=== PATIENT | male | born 1950 | race Caucasian/White ===

== ENCOUNTER 2016-03-23 01:14 | Observation (INO) | payer MEDICARE ==
[2016-03-23] MEDS ORDERED: SODIUM CHLORIDE 0.9% 1,000 ML IV STA (01:58)
--- NOTE | 2016-03-23 02:07 | ED ---
Syncope HPI - General Chief Complaint: Syncope Stated Complaint: Syncopal Episode - Hit Head LOC Time Seen by Provider: 03/23/16 01:42 Source: patient, family, RN notes reviewed Mode of arrival: wheelchair Limitations: no limitations - History of Present Illness Initial Comments: This patient is a 65-year-old man brought in after he had passed out at home. The history is from both the patient and his . The patient had been in bed , then got up, went into the bathroom to urinate. The patient's states she was in another room of the house and heard a crash. She went and found the patient on the floor of the bathroom in a semi-seated position against a cabinet. She states that the patient was unresponsive and she phoned 911, but misdialed. When she was re-dialing, the patient regained consciousness and told her that he was alright, and that he was just sleeping. There had been no observed tonic-clonic activity or loss of continence. The patient is denying any injury in the fall. The patient states that preceding this episode he had not really had any prodromal symptoms. The patient states he has been feeling a little fatigued and under the weather for a day or 2 prior, but denied any specific symptoms. MD Complaint: collapsed -: minutes(s) Prodromal Symptoms: none -: second(s) Injuries Sustained Associated with Event: None Current Symptoms: none Context: getting out of bed - Related Data Home Medications Medication Instructions Recorded Confirmed Fluticasone/Salmeterol [Advair 1 dose PO Q12HR 03/23/16 03/23/16 100-50 Diskus] Hydrocodone/Acetaminophen 2 tab PO Q6HR PRN 03/23/16 03/23/16 [Hydrocodone/Acetaminophen 5-300] Lisinopril [Lisinopril] 20 mg PO DAILY 03/23/16 03/23/16 Losartan [Cozaar] 50 mg PO DAILY 03/23/16 03/23/16 Simvastatin [Zocor] 40 mg PO ONCE 03/23/16 03/23/16 Topiramate [Topamax] 100 mg PO TID 03/23/16 03/23/16 Topiramate [Topiramate] 100 mg PO TID 03/23/16 03/23/16 Allergies Allergy/AdvReac Type Severity Reaction Status Date / Time bee pollen Allergy Anaphylaxis Verified 03/23/16 01:23 shrimp Allergy Anaphylaxis Verified 03/23/16 01:23 Review of Systems ROS Statement: Those systems with pertinent positive or pertinent negative responses have been documented in the HPI. ROS Other: All systems not noted in ROS Statement are negative. Constitutional: Denies: fever, chills, weakness Eyes: Denies: eye pain, vision change Respiratory: Denies: cough, dyspnea, hemoptysis Cardiovascular: Reports: syncope. Denies: chest pain, palpitations, edema Endocrine: Reports: fatigue Gastrointestinal: Denies: abdominal pain, vomiting, diarrhea, melena, hematochezia Genitourinary: Denies: dysuria, hematuria Musculoskeletal: Reports: back pain (Chronic). Denies: joint swelling Skin: Denies: rash Neurological: Denies: headache, weakness, numbness Past Medical History Past Medical History: Heart Failure, COPD, Hyperlipidemia, Hypertension History of Any Multi-Drug Resistant Organisms: None Reported Past Surgical History: Adenoidectomy, Heart Catheterization With Stent, Tonsillectomy Additional Past Surgical History / Comment(s): double bypass Past Psychological History: Depression Smoking Status: Former smoker Past Alcohol Use History: Occasional Past Drug Use History: None Reported General Exam Limitations: no limitations General appearance: alert, in no apparent distress Head exam: Present: atraumatic, normocephalic Eye exam: Present: normal appearance, PERRL, EOMI. Absent: scleral icterus, conjunctival injection, nystagmus ENT exam: Present: normal oropharynx Neck exam: Present: normal inspection, full ROM Respiratory exam: Present: normal lung sounds bilaterally. Absent: respiratory distress, wheezes, rales, rhonchi, stridor Cardiovascular Exam: Present: regular rate, normal rhythm, systolic murmur ( There is a grade 3/6 systolic ejection murmur, harsh, consistent with aortic stenosis.). Absent: diastolic murmur, rubs, gallop GI/Abdominal exam: Present: soft. Absent: distended, tenderness, guarding, rebound, mass Extremities exam: Present: normal inspection, normal capillary refill. Absent: pedal edema, calf tenderness Back exam: Present: normal inspection. Absent: CVA tenderness (R), CVA tenderness (L) Neurological exam: Present: alert, oriented X3, CN II-XII intact. Absent: motor sensory deficit Skin exam: Present: warm, dry, intact, normal color. Absent: rash Course Vital Signs 03/23/16 03/23/16 03/23/16 01:16 05:19 07:09 Temperature 100.6 F H Pulse Rate 89 64 78 Respiratory 20 20 16 Rate Blood Pressure 101/59 124/62 98/53 O2 Sat by Pulse 95 Oximetry EKG Findings - EKG Results: EKG: interpreted by SALLY, MARYL, sinus rhythm (Rate 87 bpm), normal axis, normal QRS, normal ST/T, no acute changes Medical Decision Making - Lab Data Result diagrams: 03/23/16 01:43 03/23/16 01:43 Lab Results 03/23/16 03/23/16 03/23/16 Range/Units 01:43 01:43 01:43 WBC 11.6 H (3.8-10.6) k/uL RBC 4.84 (4.30-5.90) m/uL Hgb 16.1 (13.0-17.5) gm/dL Hct 47.5 (39.0-53.0) % MCV 98.2 (80.0-100.0) fL MCH 33.3 (25.0-35.0) pg MCHC 33.9 (31.0-37.0) g/dL RDW 12.9 (11.5-15.5) % Plt Count 171 (150-450) k/uL Neutrophils % 89 % Lymphocytes % 3 % Monocytes % 5 % Eosinophils % 3 % Basophils % 0 % Neutrophils # 10.3 H (1.3-7.7) k/uL Lymphocytes # 0.4 L (1.0-4.8) k/uL Monocytes # 0.5 (0-1.0) k/uL Eosinophils # 0.3 (0-0.7) k/uL Basophils # 0.0 (0-0.2) k/uL PT (9.0-12.0) sec INR (<1.1) APTT (22.0-30.0) sec Sodium 142 (137-145) mmol/L Potassium 4.1 (3.5-5.1) mmol/L Chloride 111 H (98-107) mmol/L Carbon Dioxide 20 L (22-30) mmol/L Anion Gap 11 mmol/L BUN 22 H (9-20) mg/dL Creatinine 0.90 (0.66-1.25) mg/dL Est GFR (MDRD) Af Amer >60 (>60 ml/min/1.73 sqM) Est GFR (MDRD) Non-Af >60 (>60 ml/min/1.73 sqM) Glucose 114 H (74-99) mg/dL Calcium 9.0 (8.4-10.2) mg/dL Total Bilirubin 0.6 (0.2-1.3) mg/dL AST 23 (17-59) U/L ALT 32 (21-72) U/L Alkaline Phosphatase 86 (38-126) U/L Total Creatine Kinase 45 L (55-170) U/L CK-MB (CK-2) 0.7 (0.0-2.4) ng/mL CK-MB (CK-2) Rel Index 1.6 Troponin I <0.012 (0.000-0.034) ng/mL Total Protein 6.6 (6.3-8.2) g/dL Albumin 3.5 (3.5-5.0) g/dL Urine Color Urine Appearance (Clear) Urine pH (5.0-8.0) Ur Specific [place] (1.001-1.035) Urine Protein (Negative) Urine Glucose (UA) (Negative) Urine Ketones (Negative) Urine Blood (Negative) Urine Nitrate (Negative) Urine Bilirubin (Negative) Urine Urobilinogen (<2.0) mg/dL Ur Leukocyte Esterase (Negative) Urine RBC (0-5) /hpf Amorphous Sediment (None) /hpf Influenza Type A RNA (Not Detectd) Influenza Type B (PCR) (Not Detectd) 03/23/16 03/23/16 03/23/16 Range/Units 01:43 01:43 02:22 WBC (3.8-10.6) k/uL RBC (4.30-5.90) m/uL Hgb (13.0-17.5) gm/dL Hct (39.0-53.0) % MCV (80.0-100.0) fL MCH (25.0-35.0) pg MCHC (31.0-37.0) g/dL RDW (11.5-15.5) % Plt Count (150-450) k/uL Neutrophils % % Lymphocytes % % Monocytes % % Eosinophils % % Basophils % % Neutrophils # (1.3-7.7) k/uL Lymphocytes # (1.0-4.8) k/uL Monocytes # (0-1.0) k/uL Eosinophils # (0-0.7) k/uL Basophils # (0-0.2) k/uL PT 10.9 (9.0-12.0) sec INR 1.1 (<1.1) APTT 24.4 (22.0-30.0) sec Sodium (137-145) mmol/L Potassium (3.5-5.1) mmol/L Chloride (98-107) mmol/L Carbon Dioxide (22-30) mmol/L Anion Gap mmol/L BUN (9-20) mg/dL Creatinine (0.66-1.25) mg/dL Est GFR (MDRD) Af Amer (>60 ml/min/1.73 sqM) Est GFR (MDRD) Non-Af (>60 ml/min/1.73 sqM) Glucose (74-99) mg/dL Calcium (8.4-10.2) mg/dL Total Bilirubin (0.2-1.3) mg/dL AST (17-59) U/L ALT (21-72) U/L Alkaline Phosphatase (38-126) U/L Total Creatine Kinase (55-170) U/L CK-MB (CK-2) (0.0-2.4) ng/mL CK-MB (CK-2) Rel Index Troponin I (0.000-0.034) ng/mL Total Protein (6.3-8.2) g/dL Albumin (3.5-5.0) g/dL Urine Color Yellow Urine Appearance Cloudy (Clear) Urine pH 7.0 (5.0-8.0) Ur Specific [place] 1.020 (1.001-1.035) Urine Protein Trace H (Negative) Urine Glucose (UA) Negative (Negative) Urine Ketones Negative (Negative) Urine Blood Negative (Negative) Urine Nitrate Negative (Negative) Urine Bilirubin Negative (Negative) Urine Urobilinogen <2.0 (<2.0) mg/dL Ur Leukocyte Esterase Negative (Negative) Urine RBC 3 (0-5) /hpf Amorphous Sediment Rare H (None) /hpf Influenza Type A RNA Not Detected (Not Detectd) Influenza Type B (PCR) Not Detected (Not Detectd) Disposition Clinical Impression: Syncope and collapse Disposition: ADMITTED IP TO THIS HOSP Condition: Fair
[2016-03-23 02:12] LABS: Basophils % (A) 0 %; CH 31.3; CHCM 32.1; Eosinophils # (A) 0.3 k/uL (0-0.7); Eosinophils % (A) 3 %; HCT 47.5 % (39.0-53.0); HDW 2.31; HGB 16.1 gm/dL (13.0-17.5); Luc # (Auto) 0.07; Luc % (Auto) 1; Lymphocytes # (A) 0.4 k/uL (1.0-4.8); Lymphocytes % (A) 3 %; MCH 33.3 pg (25.0-35.0); MCHC 33.9 g/dL (31.0-37.0); MCV 98.2 fL (80.0-100.0); Mean Platelet Volume 7.2; Monocytes # (A) 0.5 k/uL (0-1.0); Monocytes % (A) 5 %; Neutrophils # (A) 10.3 k/uL (1.3-7.7); Neutrophils % (A) 89 %; RBC 4.84 m/uL (4.30-5.90); RDW 12.9 % (11.5-15.5); WBC 11.6 k/uL (3.8-10.6); WBC (Perox) 11.52
[2016-03-23 02:24] LABS: ALT 32 U/L (21-72); AST 23 U/L (17-59); Alkaline Phosphatase 86 U/L (38-126); Anion Gap 11 mmol/L; Blood Urea Nitrogen 22 mg/dL (9-20); Carbon Dioxide 20 mmol/L (22-30); Chloride 111 mmol/L (98-107); Glucose 114 mg/dL (74-99); INR 1.1 (<1.1); Non-African American GFR(MDRD) >60 (>60 ml/min/1.73 sqM); Partial Thromboplastin Time 24.4 sec (22.0-30.0); Potassium 4.1 mmol/L (3.5-5.1); Prothrombin Time 10.9 sec (9.0-12.0); Sodium 142 mmol/L (137-145); Total Bilirubin 0.6 mg/dL (0.2-1.3); Total Protein 6.6 g/dL (6.3-8.2)
[2016-03-23 02:34] LABS: Amorphous Sediment,Urine Rare /hpf; Appearance,Urine Cloudy (Clear); Bilirubin,Urine Negative (Negative); Glucose,Urine (UA) Negative (Negative); Ketones,Urine Negative (Negative); Leukocyte Esterase,Urine Negative (Negative); Nitrite,Urine Negative (Negative); Particle Count 11455; Protein,Urine Trace (Negative); RBC,Urine 3 /hpf (0-5); UA Billing (MACRO vs. MICRO) MICRO; Urobilinogen,Urine <2.0 mg/dL (<2.0)
[2016-03-23 02:38] LABS: Creatine Kinase 45 U/L (55-170)
--- NOTE | 2016-03-23 02:40 | XR ---
EXAMINATION TYPE: XR chest 1V portable DATE OF EXAM: 03/23/2016 2:22 AM COMPARISON: 05/29/2014 HISTORY: Syncope TECHNIQUE: Single frontal view of the chest is obtained. FINDINGS: There is no focal air space opacity, pleural effusion, or pneumothorax seen. Mild chronic interstitial lung changes are suggested. Sternotomy changes are present. There is mild cardiomegaly. Postsurgical changes of right shoulder arthroplasty are noted. Atherosclerotic calcification is noted in the aortic arch. IMPRESSION: 1. No focal pneumonia. 2. Chronic lung changes. 3. Sternotomy and mild cardiomegaly. 4. No significant change.
[2016-03-23 02:51] LABS: Creatine Kinase MB 0.7 ng/mL (0.0-2.4); Troponin I <0.012 ng/mL (0.000-0.034)
[2016-03-23] MEDS ORDERED: HYDROcodone/APAP 5-325MG 1 EACH TAB PO STA (03:34)
[2016-03-23] MEDS ORDERED: SODIUM CHLORIDE 0.9% 1,000 ML IV ONE (04:07)
[2016-03-23] MEDS ORDERED: HYDROcodone/APAP 10-325MG 1 EACH TAB PO ONE (04:55)
[2016-03-23 08:09] LABS: Creatine Kinase 36 U/L (55-170)
[2016-03-23 08:21] LABS: Creatine Kinase MB 0.5 ng/mL (0.0-2.4); Troponin I <0.012 ng/mL (0.000-0.034)
--- NOTE | 2016-03-23 09:49 | P.HPIM ---
History of Present Illness H&P Date: 03/23/16 Chief Complaint: Syncope This is a 65-year-old male, patient of Dr. Palacio. He has a known past medical history of coronary artery disease with previous cardiac stents and coronary artery bypass graft 2, hypertension, hyperlipidemia and congestive heart failure. Patient came into the emergency room after a syncopal episode. Patient was sleeping in bed got up around midnight to use the restroom. Patient 's heard a crash. He she observed him is sitting on a stool leaning his head back against the counter. Patient was unresponsive. She dialed EMS twice. Patient then regained consciousness and told her that he did not need to go into the hospital. However, patient's called her brothers who are both physicians and they recommended that he goes to the emergency room. On presentation EKG is showing a normal sinus rhythm. Chest x-ray showing no pneumonia with chronic lung disease. His temperature was 100.6. White count 11.6 troponins are negative 2. Patient does have a murmur which appears to be new cardiology has been consulted. He's also been hypotensive. Systolic blood pressures run 98. His blood pressure medications have been placed on hold. Patient does report having an uneasy feeling all day yesterday. He denies any dizziness or lightheadedness. Denies any chest pain or shortness of breath. Denies any nausea or vomiting. Denies any bowel movement changes or urinary symptoms. He doesn't get to having a cough which at times is chronic. However over the last couple a days his cough has been slightly more productive with a clearish sputum. He denies any fevers chills or sweats. Also note that influenza was negative and urinalysis was negative. Patient was seen evaluated in the emergency room. Per patient did not have any seizure-like activity with any twitching or jerking movements. Patient's last carotid Doppler was this past fall and they were told that it was unremarkable for any blockage. Patient does follow up with Dr. GRABIEL Romano for his .net developer. Review of Systems Please refer to HPI otherwise unremarkable Past Medical History Past Medical History: Heart Failure, COPD, Hyperlipidemia, Hypertension Additional Past Medical History / Comment(s): Narcolepsy, obstructive sleep apnea uses CPAP History of Any Multi-Drug Resistant Organisms: None Reported Past Surgical History: Adenoidectomy, Heart Catheterization With Stent, Tonsillectomy Additional Past Surgical History / Comment(s): double bypass 7 years ago Past Psychological History: Depression Smoking Status: Former smoker Past Alcohol Use History: Occasional Past Drug Use History: None Reported Medications and Allergies Home Medications Medication Instructions Recorded Confirmed Type Aspirin EC [Ecotrin Low Dose] 81 mg PO DAILY 03/23/16 03/23/16 History Atenolol [Tenormin] 25 mg PO DAILY 03/23/16 03/23/16 History Escitalopram [Lexapro] 10 mg PO DAILY 03/23/16 03/23/16 History Fluticasone/Salmeterol [Advair 1 puff INHALATION RT-BID PRN 03/23/16 03/23/16 History 100-50 Diskus] Hydrocodone/Acetaminophen 2 tab PO Q6HR PRN 03/23/16 03/23/16 History [Hydrocodone/Acetaminophen 5-300] Loratadine [Claritin] 10 mg PO DAILY 03/23/16 03/23/16 History Losartan [Cozaar] 50 mg PO DAILY 03/23/16 03/23/16 History Modafinil [Provigil] 100 mg PO TID 03/23/16 03/23/16 History Montelukast [Singulair] 10 mg PO DAILY 03/23/16 03/23/16 History Simvastatin [Zocor] 40 mg PO HS 03/23/16 03/23/16 History Topiramate [Topamax] 100 mg PO BID@0800,1200 03/23/16 03/23/16 History Topiramate [Topiramate] 200 mg PO HS 03/23/16 03/23/16 History Allergies Allergy/AdvReac Type Severity Reaction Status Date / Time bee pollen Allergy Anaphylaxis Verified 03/23/16 07:26 shrimp Allergy Anaphylaxis Verified 03/23/16 07:26 Physical Exam Vitals: Vital Signs Temp Pulse Pulse Pulse Pulse Resp BP 03/23/16 09:33 76 79 75 03/23/16 08:52 99.0 F 73 18 101/57 03/23/16 07:09 78 16 98/53 03/23/16 05:19 64 20 124/62 BP BP BP Pulse Ox 03/23/16 09:33 117/59 114/58 116/56 03/23/16 08:52 96 03/23/16 07:09 03/23/16 05:19 95 Head normocephalic Neck supple Lungs coarse breath sounds at the improve with cough Heart regular rate and rhythm S1-S2, no rub or gallop. Positive murmur Abdomen is soft nontender nondistended positive bowel sounds no hepatosplenomegaly Extremities no edema. Some bruising noted above the right elbow. Full range of motion. No swelling. Neuro alert and orientated to 3 Back: Patient does have some tenderness in the right lower back. No lacerations or bruising. No rash. Results CBC & Chem 7: 03/23/16 01:43 03/23/16 01:43 Labs: Abnormal Lab Results - Last 24 Hours (Table) 03/23/16 Range/Units 07:17 Total Creatine Kinase 36 L (55-170) U/L Assessment and Plan Plan: 1. Syncopal episode: Workup in progress. Patient was found to have a possible new murmur on exam. Echocardiogram ordered. Cardiology consulted. Continue with telemetry. Last carotid Doppler was this past fall and per patient and was unremarkable. Check for orthostatic hypotension. Urinalysis negative. Influenza screen negative. Troponins negative 2 2. Acute tracheobronchitis: Cough with productive sputum 3 days. Low-grade temp of 100.6 and white count of 11.6 on admission. Chest x-ray shows no evidence of pneumonia. Start Rocephin 1 g IV daily 3. History of coronary artery disease with previous cardiac stents and double bypass about 7 years ago. 4. History of COPD currently stable no evidence of exacerbation 5. History of obstructive sleep apnea uses CPAP at home 6. History of essential hypertension. Blood pressure has been in the lower side. We'll hold patient's atenolol and Cozaar GI prophylaxis Pepcid and DVT prophylaxis subcu heparin Time with Patient: Greater than 30 (Greater than 50% of the total time spent in counseling and coordination of care.I performed an examination of the patient and discussed their management with the physician Therapeutic Riding Instructor. I have reviewed the Physician Therapeutic Riding Instructor's notes and agree with the documented findings and plan of care)
--- NOTE | 2016-03-23 10:22 | ECHOF ---
Referral Reason:Evaluate murmur MEASUREMENTS -------- HEIGHT: 182.9 cm WEIGHT: 127.0 kg BP: 124/62 IVSd: 1.0 cm (0.6 - 1.1) LVIDd: 4.7 cm (3.9 - 5.3) LVPWd: 1.3 cm (0.6 - 1.1) IVSs: 1.4 cm LVIDs: 2.4 cm LVPWs: 1.5 cm Ao Diam: 4.0 cm (2.0 - 3.7) AV Cusp: 1.9 cm (1.5 - 2.6) LA Diam: 3.9 cm (2.7 - 3.8) MV E Stevenson: 1.07 m/s MV DecT: 345 ms MV A Stevenson: 1.38 m/s MV E/A Ratio: 0.78 RAP: 5.00 mmHg RVSP: 9.94 mmHg FINDINGS -------- Sinus rhythm. This was a technically difficult study with suboptimal views. There is mild concentric left ventricular hypertrophy. Overall left ventricular systolic function is normal with, an EF between 55 - 60 %. The right ventricle is normal in size and function. The left atrium is normal in size. The right atrium is normal in size. 1.5mg of Definity was utilized for enhancement of images The aortic valve was not well visualized. The mitral valve leaflets are mildly thickened. There is trace mitral regurgitation. Trace tricuspid regurgitation present. The right ventricular systolic pressure, as measured by Doppler, is 9.94mmHg. Pulmonic valve appears structurally normal. The pericardium is normal. CONCLUSIONS -------- 1. Sinus rhythm. 2. The mitral valve leaflets are mildly thickened. 3. There is trace mitral regurgitation. 4. Trace tricuspid regurgitation present. 5. The right ventricular systolic pressure, as measured by Doppler, is 9.94mmHg. 6. Pulmonic valve appears structurally normal. 7. The pericardium is normal. 8. This was a technically difficult study with suboptimal views. 9. There is mild concentric left ventricular hypertrophy. 10. Overall left ventricular systolic function is normal with, an EF between 55 - 60 %. 11. The right ventricle is normal in size and function. 12. The left atrium is normal in size. 13. The right atrium is normal in size. 14. 1.5mg of Definity was utilized for enhancement of images 15. The aortic valve was not well visualized. CATERPILLAR TRACTOR OPERATOR: Florencia Kline RDCS
[2016-03-23] MEDS: FAMOTIDINE 20 MG TAB PO SCH (11:39)
[2016-03-23] MEDS: TOPIRAMATE 100 MG TAB PO SCH ×2 (11:39→21:56)
[2016-03-23] MEDS: ASPIRIN 325 MG TAB PO SCH (11:39)
[2016-03-23] MEDS: ESCITALOPRAM 10 MG TAB PO SCH (11:39)
[2016-03-23] MEDS: MONTELUKAST 10 MG TAB PO SCH (11:39)
[2016-03-23] MEDS: LORATADINE 10 MG TAB PO SCH (11:39)
[2016-03-23] MEDS: MODAFINIL 100 MG TAB PO SCH ×2 (12:20→17:36)
[2016-03-23 14:29] LABS: Creatine Kinase 32 U/L (55-170)
[2016-03-23 14:41] LABS: Creatine Kinase MB 0.5 ng/mL (0.0-2.4); Troponin I <0.012 ng/mL (0.000-0.034)
--- NOTE | 2016-03-23 14:44 | CT ---
EXAMINATION TYPE: CT brain wo con DATE OF EXAM: 03/23/2016 2:39 PM COMPARISON: 02/21/2012 HISTORY: Syncope CT DLP: [address] of the brain was performed. The ventricles, basal cisterns and sulci overlying the cerebral convexities demonstrate mild enlargem ent. There is no evidence for intracranial hemorrhage or sulcal effacement. There is decreased attenuation about the periventricular white matter and deep white matter of both c erebral hemispheres, compatible with chronic small vessel ischemia. Differential diagnosis does inclu de demyelination. No mass effects are seen.No midline shift. Osseous calvarium is intact. If symptoms persist consider MRI. IMPRESSION: 1. Age related atrophic and chronic small vessel ischemic change without acute intracranial process s een at this time.
[2016-03-23] MEDS: HYDROcodone/APAP 5-325MG 1 EACH TAB PO PRN (16:46)
[2016-03-23] MEDS: SYMBICORT 80-4.5 MCG INHALER INHALATION SCH (19:56)
--- NOTE | 2016-03-23 21:39 | CONS ---
DATE OF CONSULTATION: Jose Coon is a 65-year-old male patient who got up to go to the bathroom and passed out in the bathroom. His found him unresponsive. He lost consciousness fairly quickly. There was no loss of continence, no tonic-clonic movements, no seizure-like activity. He has had at least 6 or 7 episodes of loss of consciousness, always in the standing position. He denied any prodromal symptoms of nausea, sweating, palpitations before the falls. He has not had any symptoms afterwards, either. No chest discomfort. Medications include Losartan, simvastatin, as well as lisinopril. ALLERGIES: NO KNOWN DRUG ALLERGIES. REVIEW OF SYSTEMS: No fever, chills or rigors. No cough or expectoration. No nausea, vomiting or diarrhea. No hematuria or dysuria. No strokes or seizures. No skin lesions or musculoskeletal complaints. SOCIAL HISTORY: He is a former smoker. Past medical history include coronary artery disease, status post coronary artery bypass grafting. On examination, his blood pressure is 124/62 mmHg in lying-down position. Standing up after a minute, there was no evidence for orthostasis. His blood pressure remained stable. His temperature is 100.6 degrees Fahrenheit. He is getting IV antibiotics. His white count is 11.6. Three sets of cardiac enzymes are normal. Renal function is normal. Liver function is normal. Hemoglobin is 16.1. On examination, blood pressure is 117/59 mmHg. Afebrile at this time. Head and neck examination normal. Heart sounds S1, S2 are soft. There is a systolic murmur that is audible which is somewhat distant. Breath sounds are reduced bilaterally but no rhonchi, no crackles. Abdomen is soft, nontender. Extremities are warm. No edema. The 12-lead ECG shows sinus rhythm with a normal MT interval and narrow QRS. Q-waves in the inferior leads. IMPRESSION: 1. One episode of loss of consciousness. 2. Known coronary artery disease, status post coronary artery bypass grafting. 3. Possible old inferior wall myocardial infarction. 4. Hypertension. 5. Dyslipidemia. SUGGEST: Two-D echo and Doppler study. Records from the office. He sees Dr. Kirby Romano. Consideration for tilt table testing after I review his echo. Continue telemetry monitoring.
[2016-03-23] MEDS: ATORVASTATIN 20 MG TAB PO SCH (21:55)
[2016-03-23] MEDS: HEPARIN SODIUM,PORCINE 5,000 UNIT/ML 1 ML VIAL SQ SCH (21:55)
[2016-03-24] MEDS: HYDROcodone/APAP 5-325MG 1 EACH TAB PO PRN ×4 (00:42→20:30)
[2016-03-24] MEDS: MODAFINIL 100 MG TAB PO SCH ×3 (07:00→20:32)
[2016-03-24] MEDS: SYMBICORT 80-4.5 MCG INHALER INHALATION SCH ×2 (07:00→23:08)
[2016-03-24 07:50] LABS: ALT 28 U/L (21-72); AST 24 U/L (17-59); Alkaline Phosphatase 62 U/L (38-126); Anion Gap 6 mmol/L; Blood Urea Nitrogen 16 mg/dL (9-20); Calcium 8.5 mg/dL (8.4-10.2); Carbon Dioxide 20 mmol/L (22-30); Chloride 115 mmol/L (98-107); Cholesterol 129 mg/dL (<200); Glucose 82 mg/dL (74-99); HDL Cholesterol 38 mg/dL (40-60); Non-African American GFR(MDRD) >60 (>60 ml/min/1.73 sqM); Sodium 141 mmol/L (137-145); Total Bilirubin 0.5 mg/dL (0.2-1.3); Total Protein 5.9 g/dL (6.3-8.2); Triglycerides 81 mg/dL (<150)
[2016-03-24 07:51] LABS: Potassium 4.4 mmol/L (3.5-5.1)
[2016-03-24 08:24] LABS: Basophils % (A) 0 %; CH 31.1; CHCM 30.6; Eosinophils # (A) 0.4 k/uL (0-0.7); Eosinophils % (A) 9 %; HCT 44.1 % (39.0-53.0); HGB 13.9 gm/dL (13.0-17.5); Hypochromasia Slight; Luc # (Auto) 0.14; Luc % (Auto) 3; Lymphocytes # (A) 1.2 k/uL (1.0-4.8); Lymphocytes % (A) 25 %; MCHC 31.5 g/dL (31.0-37.0); MCV 101.9 fL (80.0-100.0); Macrocytosis Slight; Mean Platelet Volume 6.8; Monocytes # (A) 0.5 k/uL (0-1.0); Monocytes % (A) 10 %; Neutrophils # (A) 2.6 k/uL (1.3-7.7); Neutrophils % (A) 53 %; RBC 4.33 m/uL (4.30-5.90); RDW 13.1 % (11.5-15.5); WBC 4.8 k/uL (3.8-10.6); WBC (Perox) 4.78
[2016-03-24] MEDS: TOPIRAMATE 100 MG TAB PO SCH ×3 (08:32→20:31)
[2016-03-24] MEDS: ESCITALOPRAM 10 MG TAB PO SCH (08:33)
[2016-03-24] MEDS: LORATADINE 10 MG TAB PO SCH (08:34)
[2016-03-24] MEDS: HEPARIN SODIUM,PORCINE 5,000 UNIT/ML 1 ML VIAL SQ SCH ×2 (08:35→20:31)
[2016-03-24] MEDS: MONTELUKAST 10 MG TAB PO SCH (08:35)
--- NOTE | 2016-03-24 15:21 | P.PN ---
Subjective Patient is doing fairly well today. He is not dizzy but he did not get out of bed as of yet. Objective - Vital Signs Vital signs: Vital Signs Temp 97.4 F L 03/24/16 12:00 Pulse 65 03/24/16 12:00 Resp 18 03/24/16 12:00 BP 108/46 03/24/16 12:00 Pulse Ox 96 03/24/16 12:00 Intake & Output 03/23/16 03/24/16 03/24/16 18:59 06:59 18:59 Intake Total 2500 600 Output Total 450 Balance 2050 600 Intake: IV 400 Sodium Chloride 0.9% 1, 400 000 ml @ 100 mls/hr IV . Q10H STA Rx#:[id number] Amount of Fluid Infused ( 1900 ml) Oral 200 600 Output: Urine 450 Other: Voiding Method Toilet Toilet Urinal Urinal - Exam General: The patient is awake and alert, in no distress Eye: there is normal conjunctiva bilaterally. Neck: The neck is supple, there is no JVD. Cardiovascular: Normal S1-S2, no S3-S4, no murmurs. Respiratory: Lungs clear to auscultation bilaterally Gastrointestinal: Abdomen is soft, nontender Musculoskeletal: There is no pedal edema. Neurological:. Speech is normal. Skin: Skin is warm and dry - Labs CBC & Chem 7: 03/24/16 07:15 03/24/16 07:15 Labs: Abnormal Lab Results - Last 24 Hours (Table) 03/24/16 03/24/16 Range/Units 07:15 07:15 MCV 101.9 H (80.0-100.0) fL Plt Count 126 L (150-450) k/uL Chloride 115 H (98-107) mmol/L Carbon Dioxide 20 L (22-30) mmol/L Total Protein 5.9 L (6.3-8.2) g/dL Albumin 2.8 L (3.5-5.0) g/dL HDL Cholesterol 38 L (40-60) mg/dL Assessment and Plan Plan: 1. Syncopal episode: Most likely attributed to vasovagal syncope. Orthostatic blood pressure checked and negative. Computed tomography scan of the brain was unremarkable. Echocardiogram showed preserved ejection fraction and no significant valvular abnormalities. Patient remained in sinus rhythm on telemetry monitoring. May consider tilt table test as an outpatient. Seen and evaluated by cardiology awaiting clearance for discharge. 2. Acute tracheobronchitis: Cough with productive sputum 3 days. Low-grade temp of 100.6 and white count of 11.6 on admission. Chest x-ray shows no evidence of pneumonia. Start Rocephin 1 g IV dailyWill be switched to oral antibiotic probably prior to discharge. 3. History of coronary artery disease with previous cardiac stents and double bypass about 7 years ago. 4. History of COPD currently stable no evidence of exacerbation 5. History of obstructive sleep apnea uses CPAP at home 6. History of essential hypertension. Blood pressure has been in the lower side. We'll hold patient's atenolol and Cozaar
[2016-03-24] MEDS: ATORVASTATIN 20 MG TAB PO SCH (20:31)
[2016-03-24] MEDS: LOSARTAN 50 MG TAB PO SCH (20:33)
--- NOTE | 2016-03-24 21:19 | PN ---
Mr. Coon was admitted with an episode of loss of consciousness. I spoke to his regarding the events. She heard a thud in the bathroom, and when she arrived there, he was not completely conscious, but after she called EMS and went back, he was completely conscious, alert, oriented, and wanted to go back to bed. He did not have any prodromal symptoms. However, he does remember that he felt a little feverish, he was not feeling well, and he may have been coming down with a viral infection, although his influenza panel is negative. He was also fairly sleepy for the last 2 to 3 days, according to his . She was concerned about that. On telemetry over the last 24 hours he has not had any arrhythmias. His blood pressure is 159/69 mmHg and he has not received his losartan that he usually takes. His heart rates are in the normal range. Respirations are normal. He is afebrile now at 97.4; however, he was febrile when he came in at 100.6 yesterday. IMPRESSION: 1. Episode of loss of consciousness. 2. Coronary artery disease, status post coronary artery bypass grafting. 3. Mild aortic stenosis. I reviewed his 2-D echocardiogram report from the office. 4. Stress test recently was normal a few months back. 5. Hypertension. SUGGEST: Tilt table testing. His 12-lead ECG is completely normal and we have no evidence for bradyarrhythmia so far. If this happens again, I would recommend an EP study.
[2016-03-25] MEDS: MODAFINIL 100 MG TAB PO SCH ×3 (05:32→23:29)
[2016-03-25] MEDS: HYDROcodone/APAP 5-325MG 1 EACH TAB PO PRN ×2 (05:32→22:54)
[2016-03-25 07:11] LABS: Basophils % (A) 1 %; CH 31.2; CHCM 31.4; Eosinophils # (A) 0.6 k/uL (0-0.7); Eosinophils % (A) 9 %; HCT 42.2 % (39.0-53.0); HDW 2.39; HGB 13.5 gm/dL (13.0-17.5); Luc # (Auto) 0.17; Luc % (Auto) 3; Lymphocytes # (A) 1.5 k/uL (1.0-4.8); Lymphocytes % (A) 25 %; MCHC 32.1 g/dL (31.0-37.0); MCV 99.8 fL (80.0-100.0); Mean Platelet Volume 6.6; Monocytes # (A) 0.4 k/uL (0-1.0); Monocytes % (A) 7 %; Neutrophils # (A) 3.4 k/uL (1.3-7.7); Neutrophils % (A) 56 %; RBC 4.22 m/uL (4.30-5.90); RDW 12.9 % (11.5-15.5); WBC 6.1 k/uL (3.8-10.6); WBC (Perox) 6.82
[2016-03-25 07:26] LABS: ALT 32 U/L (21-72); AST 19 U/L (17-59); Alkaline Phosphatase 70 U/L (38-126); Anion Gap 9 mmol/L; Blood Urea Nitrogen 15 mg/dL (9-20); Calcium 8.7 mg/dL (8.4-10.2); Carbon Dioxide 21 mmol/L (22-30); Chloride 111 mmol/L (98-107); Glucose 82 mg/dL (74-99); Non-African American GFR(MDRD) >60 (>60 ml/min/1.73 sqM); Potassium 4.2 mmol/L (3.5-5.1); Sodium 141 mmol/L (137-145); Total Bilirubin 0.3 mg/dL (0.2-1.3); Total Protein 5.8 g/dL (6.3-8.2)
[2016-03-25] MEDS: SYMBICORT 80-4.5 MCG INHALER INHALATION SCH ×2 (09:09→21:01)
[2016-03-25] MEDS: MONTELUKAST 10 MG TAB PO SCH (09:32)
[2016-03-25] MEDS: ASPIRIN 325 MG TAB PO SCH (09:32)
[2016-03-25] MEDS: FAMOTIDINE 20 MG TAB PO SCH (09:32)
[2016-03-25] MEDS: LORATADINE 10 MG TAB PO SCH (09:32)
[2016-03-25] MEDS: TOPIRAMATE 100 MG TAB PO SCH ×3 (09:32→21:23)
[2016-03-25] MEDS: ESCITALOPRAM 10 MG TAB PO SCH (09:32)
[2016-03-25] MEDS: HEPARIN SODIUM,PORCINE 5,000 UNIT/ML 1 ML VIAL SQ SCH ×2 (09:32→21:23)
--- NOTE | 2016-03-25 12:09 | P.PN ---
Subjective Patient is feeling well today. He is scheduled for a tilt table test later on. Objective - Vital Signs Vital signs: Vital Signs Temp 97.6 F 03/25/16 11:41 Pulse 63 03/25/16 11:41 Resp 18 03/25/16 11:41 BP 107/57 03/25/16 11:41 Pulse Ox 95 03/25/16 11:41 Intake & Output 03/24/16 03/25/16 03/25/16 18:59 06:59 18:59 Intake Total 1000 300 236 Balance 1000 300 236 Intake: Oral 1000 300 236 Other: Voiding Method Toilet Toilet Urinal Urinal # Voids 1 - Exam General: The patient is awake and alert, in no distress Eye: there is normal conjunctiva bilaterally. Neck: The neck is supple, there is no JVD. Cardiovascular: Normal S1-S2, no S3-S4, no murmurs. Respiratory: Lungs clear to auscultation bilaterally Gastrointestinal: Abdomen is soft, nontender Musculoskeletal: There is no pedal edema. Neurological:. Speech is normal. Skin: Skin is warm and dry - Labs CBC & Chem 7: 03/25/16 06:36 03/25/16 06:36 Labs: Abnormal Lab Results - Last 24 Hours (Table) 03/25/16 03/25/16 Range/Units 06:36 06:36 RBC 4.22 L (4.30-5.90) m/uL Plt Count 143 L (150-450) k/uL Chloride 111 H (98-107) mmol/L Carbon Dioxide 21 L (22-30) mmol/L Total Protein 5.8 L (6.3-8.2) g/dL Albumin 2.9 L (3.5-5.0) g/dL Microbiology - Last 24 Hours (Table) 03/24/16 07:00 Gram Stain - Preliminary Sputum Assessment and Plan Plan: 1. Syncopal episode: Most likely attributed to vasovagal syncope. Orthostatic blood pressure checked and negative. Blood pressure is been on the lower side. His atenolol and losartan were held yesterday. I would suggest to decrease his losartan dose to 25 mg daily. Computed tomography scan of the brain was unremarkable. Echocardiogram showed preserved ejection fraction and no significant valvular abnormalities. Patient remained in sinus rhythm on telemetry monitoring. May consider tilt table test as an outpatient. Seen and evaluated by cardiology awaiting clearance for discharge. 2. Acute tracheobronchitis: Cough with productive sputum 3 days. Low-grade temp of 100.6 and white count of 11.6 on admission. Chest x-ray shows no evidence of pneumonia. Start Rocephin 1 g IV daily. Will be switched to oral antibiotic probably prior to discharge. 3. History of coronary artery disease with previous cardiac stents and double bypass about 7 years ago. 4. History of COPD currently stable no evidence of exacerbation 5. History of obstructive sleep apnea uses CPAP at home 6. History of essential hypertension. Blood pressure has been in the lower side. We'll hold patient's atenolol and Cozaar Patient is scheduled for a tilt table test today. Blood pressure needs to be monitored closely and medication needs to be adjusted prior to discharge tomorrow.
[2016-03-25] MEDS: SODIUM CHLORIDE 0.9% 1,000 ML IV SCH (21:23)
[2016-03-25] MEDS: ATORVASTATIN 20 MG TAB PO SCH (21:23)
[2016-03-26] MEDS: MODAFINIL 100 MG TAB PO SCH (06:16)
[2016-03-26 07:38] LABS: Basophils % (A) 1 %; CH 31.4; CHCM 32.1; Eosinophils # (A) 0.6 k/uL (0-0.7); Eosinophils % (A) 12 %; HCT 42.6 % (39.0-53.0); HDW 2.46; HGB 13.8 gm/dL (13.0-17.5); Luc # (Auto) 0.18; Luc % (Auto) 4; Lymphocytes # (A) 1.7 k/uL (1.0-4.8); Lymphocytes % (A) 33 %; MCH 31.8 pg (25.0-35.0); MCHC 32.3 g/dL (31.0-37.0); MCV 98.4 fL (80.0-100.0); Mean Platelet Volume 6.8; Monocytes # (A) 0.4 k/uL (0-1.0); Monocytes % (A) 8 %; Neutrophils # (A) 2.3 k/uL (1.3-7.7); Neutrophils % (A) 44 %; RBC 4.33 m/uL (4.30-5.90); WBC 5.2 k/uL (3.8-10.6)
[2016-03-26] MEDS: SYMBICORT 80-4.5 MCG INHALER INHALATION SCH (07:39)
[2016-03-26 07:52] LABS: ALT 29 U/L (21-72); AST 20 U/L (17-59); Alkaline Phosphatase 73 U/L (38-126); Anion Gap 9 mmol/L; Blood Urea Nitrogen 17 mg/dL (9-20); Carbon Dioxide 21 mmol/L (22-30); Chloride 112 mmol/L (98-107); Glucose 81 mg/dL (74-99); Non-African American GFR(MDRD) >60 (>60 ml/min/1.73 sqM); Sodium 142 mmol/L (137-145); Total Bilirubin 0.3 mg/dL (0.2-1.3); Total Protein 5.9 g/dL (6.3-8.2)
[2016-03-26] MEDS: LOSARTAN 50 MG TAB PO SCH (08:28)
[2016-03-26] MEDS: HEPARIN SODIUM,PORCINE 5,000 UNIT/ML 1 ML VIAL SQ SCH (08:43)
[2016-03-26] MEDS: ESCITALOPRAM 10 MG TAB PO SCH (08:44)
[2016-03-26] MEDS: MONTELUKAST 10 MG TAB PO SCH (08:44)
[2016-03-26] MEDS: ASPIRIN 325 MG TAB PO SCH (08:44)
[2016-03-26] MEDS: TOPIRAMATE 100 MG TAB PO SCH (08:44)
[2016-03-26] MEDS: LORATADINE 10 MG TAB PO SCH (08:44)
[2016-03-26] MEDS: FAMOTIDINE 20 MG TAB PO SCH (08:44)
[2016-03-26 08:59] VITALS: BP 125/69; PULSE 63; RESP 18; TEMP 97.7
[2016-03-26] MEDS ORDERED: LOSARTAN 25 MG TAB PO SCH (09:00)
--- NOTE | 2016-03-26 11:04 | P.DS ---
Providers Date of admission: 03/23/16 04:46 Expected date of discharge: 03/26/16 Attending physician: Li Luciano Consults: Dr. Wooten Primary care physician: Mine Palacio Hospital Course: Discharge diagnosis 1. Syncopal episode: Most likely attributed to vasovagal syncope and blood pressures being in the lower side. Orthostatic blood pressure checked and negative. Blood pressure is been on the lower side. Atenolol was discontinued during this admission. And losartan has been decreased to 25 mg daily. Computed tomography scan of the brain was unremarkable. Echocardiogram showed preserved ejection fraction and no significant valvular abnormalities. There is noted to be some mild aortic stenosis per cardiology. Patient remained in sinus rhythm on telemetry monitoring. Tilt table test was negative. Was seen evaluated by cardiology. They adjusted blood pressure medications. And have cleared him for discharge 2. Acute tracheobronchitis: Cough with productive sputum 3 days. Low-grade temp of 100.6 and white count of 11.6 on admission. Chest x-ray shows no evidence of pneumonia. Continue Ceftin for 3 more days 3. History of coronary artery disease with previous cardiac stents and double bypass about 7 years ago. 4. History of COPD currently stable no evidence of exacerbation 5. History of obstructive sleep apnea uses CPAP at home 6. History of essential hypertension. Blood pressure has been in the lower side. They have shown improvement with adjustment of blood pressure medications adjusted Hospital course This is a 65-year-old male, patient of Dr. Palacio. He has a known past medical history of coronary artery disease with previous cardiac stents and coronary artery bypass graft 2, hypertension, hyperlipidemia and congestive heart failure. Patient came into the emergency room after a syncopal episode. Patient was sleeping in bed got up around midnight to use the restroom. Patient 's heard a crash. He she observed him is sitting on a stool leaning his head back against the counter. Patient was unresponsive. She dialed EMS twice. Patient then regained consciousness and told her that he did not need to go into the hospital. However, patient's called her brothers who are both physicians and they recommended that he goes to the emergency room. On presentation EKG is showing a normal sinus rhythm. Chest x-ray showing no pneumonia with chronic lung disease. His temperature was 100.6. White count 11.6 troponins are negative 2. Blood pressures had been running in the lower side. Blood pressure medications were held on admission. And had adjustments made atenolol discontinued and atenolol is decreased to 25 mg daily by cardiology. A follow-up with cardiology in the office. Bloody pressures have shown improvement. Patient also had tilt table study done which was negative. Per cardiology they felt that his syncopal episode was likely related to hypotension as well as vasovagal syncope. Orthostatics were negative. Echo showed a preserved EF and no severe valvular abnormalities. Patient's symptoms have improved adjustments to blood pressure medications may during this admission. Patient is been cleared by cardiology for discharge we'll follow-up with him in the office. Patient also continue Ceftin for 3 more days for bronchitis. Chest x-ray was negative for pneumonia. Please refer to chart for any further details. Patient Condition at Discharge: Stable Plan - Discharge Summary New Discharge Prescriptions: Cefuroxime Axetil [Ceftin] 500 mg PO BID #6 tab Losartan [Cozaar] 25 mg PO DAILY #30 tab Discharge Medication List Aspirin EC [Ecotrin Low Dose] 81 mg PO DAILY 03/23/16 [History] Escitalopram [Lexapro] 10 mg PO DAILY 03/23/16 [History] Fluticasone/Salmeterol [Advair 100-50 Diskus] 1 puff INHALATION RT-BID PRN 03/23 [History] Hydrocodone/Acetaminophen [Hydrocodone/Acetaminophen 5-300] 2 tab PO Q6HR PRN [History] Loratadine [Claritin] 10 mg PO DAILY 03/23/16 [History] Modafinil [Provigil] 100 mg PO TID 03/23/16 [History] Montelukast [Singulair] 10 mg PO DAILY 03/23/16 [History] Simvastatin [Zocor] 40 mg PO HS 03/23/16 [History] Topiramate 200 mg PO HS 03/23/16 [History] Topiramate [Topamax] 100 mg PO BID@0800,1200 03/23/16 [History] Cefuroxime Axetil [Ceftin] 500 mg PO BID #6 tab 03/26/16 [Rx] Losartan [Cozaar] 25 mg PO DAILY #30 tab 03/26/16 [Rx] Follow up Appointment(s)/Referral(s): Rose Romano MD [STAFF PHYSICIAN] - 04/02/16 9:00 am Mine Palacio DO [Primary Care Provider] - 1 Week Activity/Diet/Wound Care/Special Instructions: Diet: cardiac Activity: as tolerated Discharge Disposition: HOME SELF-CARE
[2016-03-26] MEDS: SODIUM CHLORIDE 0.9% 1,000 ML IV SCH (11:19)
--- NOTE | 2016-03-26 17:59 | CE ---
DATE OF SERVICE: Tilt table test. History of syncope. Blood pressure 137/63 millimeters Hg. Baseline heart rate 60 beats a minute. He was tilted upright at an angle of 70 degrees per protocol. There were no changes in heart rate or blood pressure although he felt shaky at times. There is no evidence for neurocardiogenic syncope. He was laid supine at the end of the procedure. IMPRESSION: 1. No evidence for neurocardiogenic syncope. 2. No evidence for dysautonomia. SUGGEST: Stop atenolol. Continue other cardiac medications. Follow up with Dr. Palacio and Dr. Kirby Romano.
== END 2016-03-26 11:45 | disposition home or self-care (01) ==
LOC: EC 01:14 → 3SUR 04:46 → 3OBS 17:57
PROVIDERS: ADMIT Internal Medicine; ATTEND Internal Medicine
DX: R55 Syncope and collapse (principal); I95.9 Hypotension, unspecified; I35.0 Nonrheumatic aortic (valve) stenosis; J44.0 Chronic obstructive pulmonary disease with (acute) lower respiratory infection; J20.9 Acute bronchitis, unspecified; I25.10 Atherosclerotic heart disease of native coronary artery without angina pectoris; I10 Essential (primary) hypertension; I50.9 Heart failure, unspecified; G47.33 Obstructive sleep apnea (adult) (pediatric); E78.5 Hyperlipidemia, unspecified; G47.419 Narcolepsy without cataplexy; F32.9 Major depressive disorder, single episode, unspecified; Z99.89 Dependence on other enabling machines and devices; Z95.5 Presence of coronary angioplasty implant and graft; Z95.1 Presence of aortocoronary bypass graft; Z87.891 Personal history of nicotine dependence; Z79.899 Other long term (current) drug therapy; Z79.51 Long term (current) use of inhaled steroids; Z79.82 Long term (current) use of aspirin
CPT/HCPCS: 99285; 96365; 96361 ×18; 36415; 94640 ×5; 94760 ×2; 93660; 80061; 80053 ×4; 84443; 82550; 82553; 84484; 85025 ×4; 85610; 85730; 81001; 87070; 87205; 87502; 71010; 70450; G0378 ×4; C8929; J1644 ×3; J0696 ×4; Q9957; 93005; 93306; 96366; 96372

== ENCOUNTER → 2016-08-14 | Outpatient (CLI) | payer MEDICARE ==
[2016-08-14 19:34] LABS: Anion Gap 10 mmol/L; Blood Urea Nitrogen 21 mg/dL (9-20); Calcium 9.1 mg/dL (8.4-10.2); Carbon Dioxide 20 mmol/L (22-30); Chloride 113 mmol/L (98-107); Glucose 96 mg/dL (74-99); Non-African American GFR(MDRD) >60 (>60 ml/min/1.73 sqM); Sodium 143 mmol/L (137-145)
--- NOTE | 2016-08-15 08:51 | CT ---
EXAMINATION TYPE: CT chest w con DATE OF EXAM: 08/14/2016 COMPARISON: NONE HISTORY: Post CABG sternal dehiscence. CT DLP: 624.90 mGycm Automated exposure control for dose reduction was used. CONTRAST: CT scan of the chest is performed with IV Contrast, patient injected with 100 mL of Omnipaque 300. FINDINGS: LUNGS: The lungs are grossly clear, there is no concerning parenchymal mass or nodule identified. T here is no pleural effusion or pneumothorax seen. The tracheobronchial tree is patent. Subsegmental areas of atelectasis or infiltrate noted bilaterally. MEDIASTINUM: Sternotomy wires are seen. Is incomplete fusion of the sternum. No abnormal fluid collec tions are seen. No abnormal fluid collection within the mediastinum or subcutaneous tissues adjacent sternum. Could not exclude an attenuation within the nonunion portion of the sternum. No definite inf lammatory changes. The heart is enlarged. Coronary artery calcification noted. OTHER: 1.7 cm lesion within the right kidney measures 15 Hounsfield units suggestive of a cyst. Hype rtrophic and degenerative change of the spine. Previous right shoulder surgery noted. IMPRESSION: 1. Postoperative changes. 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 No abnormal subcutaneous or media stinal fluid collections. Intermediate density within the nonunion portion of the sternum is nonspeci fic. No adjacent inflammatory changes. Correlate clinically if there is concern for infection.
== END | disposition home or self-care (01) ==
LOC: RADCTMAIN 18:37
PROVIDERS: ATTEND Internal Medicine Interventional Cardiology
DX: T81.31XA Disruption of external operation (surgical) wound, not elsewhere classified, initial encounter (principal); I25.10 Atherosclerotic heart disease of native coronary artery without angina pectoris; I10 Essential (primary) hypertension; Z95.1 Presence of aortocoronary bypass graft
CPT/HCPCS: 80048; 71260; 36415; Q9967

== ENCOUNTER → 2016-10-12 | Outpatient (CLI) | payer MEDICARE ==
[2016-10-12 17:39] LABS: CH 32.3; CHCM 31.7; HDW 2.39; MCH 31.9 pg (25.0-35.0); MCHC 31.1 g/dL (31.0-37.0); MCV 102.5 fL (80.0-100.0); Macrocytosis Slight; Mean Platelet Volume 8.3; RBC 4.39 m/uL (4.30-5.90); RDW 14.3 % (11.5-15.5)
[2016-10-12 17:41] LABS: Anion Gap 9 mmol/L; Blood Urea Nitrogen 16 mg/dL (9-20); Carbon Dioxide 21 mmol/L (22-30); Chloride 110 mmol/L (98-107); Glucose 81 mg/dL (74-99); Non-African American GFR(MDRD) >60 (>60 ml/min/1.73 sqM); Potassium 4.3 mmol/L (3.5-5.1); Sodium 140 mmol/L (137-145)
== END | disposition home or self-care (01) ==
LOC: LABPAT 17:11
PROVIDERS: ATTEND Thoracic Surgery (Cardiothoracic Vascular Surgery)
DX: Z01.812 Encounter for preprocedural laboratory examination (principal); S22.20XK Unspecified fracture of sternum, subsequent encounter for fracture with nonunion
CPT/HCPCS: 80051; 82565; 82947; 84520; 85027

== ENCOUNTER 2016-10-19 07:41 | Day surgery (SDC) | payer MEDICARE ==
[2016-10-12 15:30] VITALS: BMI 40.8
[~2016-10-19 07:41] MED LIST: DEXAMETHASONE SOD PHOSPHATE 10 MG/ML 1 ML VIAL IV ONE; LACTATED RINGERS 1,000 ML IV SCH; LIDOCAINE 1% 20 ML VIAL (10MG/ML) FOR IV START INTRADERMA PRN; ONDANSETRON 4 MG/2 ML VIAL IVP ONE; ceFAZolin 3 GM in SODIUM CHLORIDE 0.9% 100 ML IVPB ONE
[2016-10-19] MEDS ORDERED: GLYCOPYRROLATE 0.2 MG/ML 2 ML VIAL ONE (09:30)
[2016-10-19] MEDS ORDERED: ROCURONIUM BROMIDE 10 MG/ML 10 ML VIAL IV ONE (09:30)
[2016-10-19] MEDS ORDERED: LIDOCAINE 1% INJ 10MG/ML (20 ML MDV) ONE (09:30)
[2016-10-19] MEDS ORDERED: NEOSTIGMINE 1 MG/ML 10 ML VIAL ONE (09:30)
[2016-10-19] MEDS ORDERED: fentaNYL (PF) 50 MCG/ML 2 ML AMP ONE (09:30)
[2016-10-19] MEDS ORDERED: PROPOFOL 10 MG/ML 20 ML VIAL IV ONE (09:30)
[2016-10-19] MEDS ORDERED: SUCCINYLCHOLINE CHLORIDE VIAL 200 MG/10 ML VIAL IV ONE (09:30)
[2016-10-19] MEDS ORDERED: MIDAZOLAM 2 MG/2 ML VIAL ONE (09:30)
--- NOTE | 2016-10-19 11:06 | P.OP ---
Date of Procedure: 10/19/16 Preoperative Diagnosis: Chest pain, sternal nonunion Postoperative Diagnosis: Same Procedure(s) Performed: Sternal wound exploration, removal of sternal wires, bilateral pectoralis major advancement flaps Implants: Anesthesia: JULIAA Surgeon: Mahesh Fried Fish Conservationist #1: Graeme Davis Estimated Blood Loss (ml): 150 IV fluids (ml): 1,000 Pathology: other (Old scar) Condition: stable Disposition: PACU Indications for Procedure: The patient is a 66-year-old male who is 8 years status post coronary bypass surgery by Dr. Bijan Nayak. His operation was complicated by sternal wound infection which was treated with a wound VAC. The patient was referred by his director of casework department for evaluation for persistent sternal pain. Computed tomography scan confirmed the presence of a lower sternal nonunion. Sternal wire excision was recommended for treatment of chronic sternal pain in the face of a chronic sternal nonunion. Operative Findings: The sternal incision was extremely wide up to 3 cm. Underlying tissue was extremely thin. The manubrial wires were deeply embedded in the bone and were not removed. The sternal wires were all freed and removed. The cause of the resultant limited tissue for closure over the sternum after removal of the sternal scar and dissection through to the sternum and the previously infected subcutaneous tissues, it was decided to proceed with pectoralis major advancement flap in order to have adequate tissue for coverage. Description of Procedure: The patient was brought to the operating room, placed supine on the operating table, anesthetized and intubated. The anterior chest was sterilely prepped and draped. The old sternal scar was excised. Incision was carried down through subcutaneous tissue to the sternum. The previous sternal wires were all identified. The manubrial wires were deeply embedded in the bone and were not easily excised and were left intact. The sternal body wires were all freed and removed. In order to achieve adequate soft tissue closure over the resultant defect measuring 35 x 12 cm, it was decided to advance the pectoralis major muscle bilaterally. Electrocautery was used to mobilize the tissues and pectoralis major off the sternum and costal cartilages bilaterally. A 19 Aho drain was placed in the incision and brought out inferiorly.. Pectoralis major muscle flaps were closed over this with interrupted [id number] 2-0 Vicryl sutures. Care was taken not to sew in the drain. The drain was secured to the skin with a 3-0 nylon. Subcutaneous and subcuticular layers were closed with layers of Vicryl suture. Skin glue dressing was applied and the patient was awakened and transferred to recovery room. Plan - Discharge Summary New Discharge Prescriptions: No Action Topiramate [Topamax] 100 mg PO BID Simvastatin [Zocor] 40 mg PO HS Fluticasone/Salmeterol [Advair 100-50 Diskus] 1 puff INHALATION RT-BID PRN PRN Reason: Shortness Of Breath Aspirin EC [Ecotrin Low Dose] 81 mg PO DAILY Escitalopram [Lexapro] 10 mg PO DAILY Modafinil [Provigil] 100 mg PO TID Montelukast [Singulair] 10 mg PO DAILY Losartan [Cozaar] 25 mg PO DAILY #30 tab Budesonide [Pulmicort] 0.5 mg INHALATION BID Atenolol [Tenormin] 25 mg PO DAILY Calcium Carbonate/Vitamin D3 [Calcium 500-Vit D3 200 Tablet] 1 tab PO DAILY Albuterol Nebulized [Ventolin Nebulized] 2.5 mg INHALATION BID Discharge Medication List Aspirin EC [Ecotrin Low Dose] 81 mg PO DAILY 03/23/16 [History] Escitalopram [Lexapro] 10 mg PO DAILY 03/23/16 [History] Fluticasone/Salmeterol [Advair 100-50 Diskus] 1 puff INHALATION RT-BID PRN 03/23 [History] Modafinil [Provigil] 100 mg PO TID 03/23/16 [History] Montelukast [Singulair] 10 mg PO DAILY 03/23/16 [History] Simvastatin [Zocor] 40 mg PO HS 03/23/16 [History] Topiramate [Topamax] 100 mg PO BID 03/23/16 [History] Losartan [Cozaar] 25 mg PO DAILY #30 tab 03/26/16 [Rx] Albuterol Nebulized [Ventolin Nebulized] 2.5 mg INHALATION BID 10/12/16 [History ] Atenolol [Tenormin] 25 mg PO DAILY 10/12/16 [History] Budesonide [Pulmicort] 0.5 mg INHALATION BID 10/12/16 [History] Calcium Carbonate/Vitamin D3 [Calcium 500-Vit D3 200 Tablet] 1 tab PO DAILY [History]
[2016-10-19 11:11] VITALS: TEMP 97.9
[2016-10-19] MEDS: HYDROmorphone 1 MG/ML 1 ML SYRINGE IVP PRN ×2 (11:16→11:37)
[2016-10-19 12:21] VITALS: RESP 16
[2016-10-19 13:18] VITALS: BP 133/72; PULSE 64
== END 2016-10-19 13:19 | disposition home or self-care (01) ==
LOC: OR 07:41
PROVIDERS: ATTEND Thoracic Surgery (Cardiothoracic Vascular Surgery)
DX: M96.89 Other intraoperative and postprocedural complications and disorders of the musculoskeletal system (principal); Z95.1 Presence of aortocoronary bypass graft; I25.10 Atherosclerotic heart disease of native coronary artery without angina pectoris; Z85.038 Personal history of other malignant neoplasm of large intestine; Z87.891 Personal history of nicotine dependence; Z79.82 Long term (current) use of aspirin; Z79.899 Other long term (current) drug therapy; Z96.651 Presence of right artificial knee joint; Z96.611 Presence of right artificial shoulder joint; I11.0 Hypertensive heart disease with heart failure; I50.9 Heart failure, unspecified; E78.5 Hyperlipidemia, unspecified; G47.33 Obstructive sleep apnea (adult) (pediatric); J44.9 Chronic obstructive pulmonary disease, unspecified; J45.909 Unspecified asthma, uncomplicated; K21.9 Gastro-esophageal reflux disease without esophagitis; Z95.5 Presence of coronary angioplasty implant and graft
CPT/HCPCS: 88305; 20680; 15734; C1729; J2250; J0330; J1100; J2710; J0690; J2405; J2001; J3010; J1170; J2704

== ENCOUNTER → 2019-08-28 | Outpatient (CLI) | payer MEDICARE ==
--- NOTE | 2019-08-28 20:37 | MR ---
MR brain without contrast HISTORY: R 41.82, memory loss Multiplanar multisequence imaging through the brain, correlation prior MR brain 12/07/2014 There is no restricted diffusion. Cortical atrophy is present. White matter hyperintensity and invers ion recovery T2-weighted sequences is similar to prior exam. There is no hemorrhage or hydrocephalus. Inflammatory changes are present in the bilateral maxillary sinuses, ethmoid air cells, also within the mastoid air cells on the right as on prior. There are normal vascular flow voids. Cerebellopontin e angles, corpus callosum, pituitary, cervical medullary junction are within normal limits. IMPRESSION: Essentially stable exam. Age-related changes of atrophy and chronic small vessel ischemia . Sinus disease.
== END | disposition home or self-care (01) ==
LOC: RADMRIMAIN 16:21
PROVIDERS: ATTEND Family Medicine
DX: G31.9 Degenerative disease of nervous system, unspecified (principal); I67.82 Cerebral ischemia; J34.9 Unspecified disorder of nose and nasal sinuses
CPT/HCPCS: 70551

== ENCOUNTER → 2020-05-20 | Outpatient (CLI) | payer MEDICARE ==
--- NOTE | 2020-05-20 22:34 | MR ---
EXAMINATION TYPE: MR shoulder LT wo con DATE OF EXAM: 05/20/2020 COMPARISON: None available. HISTORY: Left shoulder pain for 1 month after falling on ground. TECHNIQUE: Multiplanar, multisequence imaging of the left shoulder is performed without contrast. FINDINGS: Rotator Cuff: Approximately 5.6 x 4.6 cm full-thickness tear of the supraspinatus tendon extending to the subscapularis tendon. There is tendon retraction to the level of the glenohumeral joint. There i s moderate grade partial-thickness tear of the infraspinatus tendon and low-grade of the teres minor tendon. There is moderate atrophy of the supraspinatus muscle and mild of the remaining rotator cuff muscle bulk. No significant muscular edema. Acromioclavicular Joint: Moderate osteoarthritis. Glenohumeral Joint: Moderate to severe osteoarthritis with full-thickness chondromalacia. Labrum: Degenerative tearing of the glenoid labrum. Biceps Tendon: The intra-articular long head biceps tendon is poorly visualized, suggestive of chroni c injury. Bone marrow signal: Scattered mild degenerative cystic changes. Otherwise no significant bone marrow abnormality, acute fracture or dislocation. Other: Small glenohumeral joint effusion communicating with the subacromial-subdeltoid bursa. IMPRESSION: Massive, retracted full-thickness tear of the supraspinatus tendon extending to the subscapularis ten don. Moderate grade partial-thickness tear of the infraspinatus muscle. Associated mild to moderate to cuf f atrophy. Suggestion of chronic intra-articular long head biceps biceps injury.
== END | disposition home or self-care (01) ==
LOC: RADMRIMAIN 20:08
PROVIDERS: ATTEND Orthopaedic Surgery
DX: M75.122 Complete rotator cuff tear or rupture of left shoulder, not specified as traumatic (principal); M75.112 Incomplete rotator cuff tear or rupture of left shoulder, not specified as traumatic; M62.512 Muscle wasting and atrophy, not elsewhere classified, left shoulder

== ENCOUNTER 2020-06-26 06:33 | Day surgery (SDC) | payer MEDICARE ==
[2020-06-24 12:01] VITALS: BMI 40.1
[~2020-06-26 06:33] MED LIST changes: +ALPRAZolam 0.25 MG TAB PO PRN; +ALPRAZolam 0.5 MG TAB PO PRN; +ASPIRIN 325 MG TAB PO STA; +ATORVASTATIN 80 MG TAB PO STA; -DEXAMETHASONE SOD PHOSPHATE 10 MG/ML 1 ML VIAL IV ONE; -LACTATED RINGERS 1,000 ML IV SCH; -LIDOCAINE 1% 20 ML VIAL (10MG/ML) FOR IV START INTRADERMA PRN; +NITROGLYCERIN SL TABS 0.4 MG TAB SUBLINGUAL PRN; -ONDANSETRON 4 MG/2 ML VIAL IVP ONE; +SODIUM CHLORIDE 0.9% 1,000 ML in EMPTY BAG 1 BAG IV ONE; -ceFAZolin 3 GM in SODIUM CHLORIDE 0.9% 100 ML IVPB ONE
[2020-06-26] MEDS ORDERED: SODIUM CHLORIDE 0.9% 1,000 ML IV ONE (07:00)
[2020-06-26 07:09] VITALS: RESP 16; TEMP 98
[2020-06-26] MEDS ORDERED: fentaNYL (PF) 50 MCG/ML 2 ML AMP ONE (07:11)
[2020-06-26] MEDS: BENZOCAINE SPRAY 1 CAN TOPICAL ONE ×2 (07:27→07:28)
[2020-06-26] MEDS ORDERED: fentaNYL (PF) 50 MCG/ML 2 ML AMP IV ONE (07:28)
[2020-06-26] MEDS ORDERED: MIDAZOLAM 2 MG/2 ML VIAL IV ONE (07:28)
[2020-06-26] MEDS ORDERED: HYDROcodone/APAP 7.5-325MG 1 EACH TAB ONE ×2 (08:53→15:00)
[2020-06-26] MEDS ORDERED: IV FLUID CONTINUATION 500 ML IV ONE (11:22)
[2020-06-26] MEDS ORDERED: MIDAZOLAM 2 MG/2 ML VIAL IVP ONE (11:22)
[2020-06-26] MEDS: LIDOCAINE 1% INJ 10MG/ML (20 ML MDV) SQ ONE ×2 (11:26→11:29)
[2020-06-26] MEDS ORDERED: HYDROmorphone 0.5 MG/0.5 ML SYRINGE IVP ONE (11:28)
[2020-06-26] MEDS ORDERED: LIDOCAINE 1% INJ 10MG/ML (20 ML MDV) SQ ONE (11:31)
[2020-06-26 11:51] LABS: O2 Sat Blood Gas 73.3 %
[2020-06-26 11:53] LABS: O2 Sat Blood Gas 92.7 %
[2020-06-26 11:58] LABS: O2 Sat Blood Gas 71.7 %
[2020-06-26] MEDS ORDERED: IOPAMIDOL-370 100ML BTL INJ ONE (12:04)
[2020-06-26] MEDS ORDERED: NITROGLYCERIN SL TABS 0.4 MG TAB SUBLINGUAL ONE (12:04)
[2020-06-26] MEDS ORDERED: RX INFO: IV CONTRAST WAS GIVEN 1 EACH MISC MISCELLANE PRN (12:16)
[2020-06-26] MEDS ORDERED: SODIUM CHLORIDE 0.9% 1,000 ML IV SCH (12:30)
--- NOTE | 2020-06-26 14:23 | CC ---
CARDIAC CATHETERIZATION REPORT DATE OF SERVICE: 06/26/2020. PROCEDURE: Right and left heart catheterization and coronary angiography. PERFORMED BY: Dr. Kirby Romano. Moderate conscious sedation time was 39 minutes. Patient was administered Versed. Oxygen saturation, hemodynamics and EKG were monitored closely. CLINICAL INFORMATION: Mr. Jose Coon is a 69-year-old obese gentleman with a history of hypertension, hyperlipidemia, and also obstructive sleep apnea and wears a CPAP faithfully. He has known CAD, underwent stenting of a RCA in 2004 followed by unsuccessful PCI of LAD and went on to have a BECERRA to LAD and vein graft to the diagonal. This was performed in 2007. In 2012, I performed a cardiac cath which revealed that the BECERRA was not very functional with sluggish flow and most of the flow to the LAD was coming from the diagonal graft. Because of significant symptoms of increasing shortness of breath and worsening aortic stenosis clinically, he was advised cardiac catheterization after due discussion regarding risks, benefits, and options. PROCEDURE NOTE: Under local anesthesia and strict aseptic precautions, a 6-Argentine introducer was placed in the right femoral artery and an 8-Argentine introducer in the right femoral vein. A right heart catheterization was performed with a balloon tipped catheter. Hemodynamics were obtained. Thermodilution cardiac output was obtained. After one reading, the catheter had some defect and could not get good readings. A Garrick cardiac output was then obtained. Coronary angiography was performed with a standard left Danii catheter for the left coronary system and an AR2 catheter was used to perform selective coronary angiography of the [place] RCA as well as the diagonal graft. I did not do an injection of the BECERRA graft since most of the flow to the LAD was from the diagonal graft. The sheath was taken out and Angio-Seal device used to secure hemostasis. I did not check LV pressure but the patient had a DEIDRE echo today, which revealed severe aortic stenosis. CARDIAC CATHETERIZATION FINDINGS: The right atrial pressure was 3 mmHg. Right ventricular pressure was 44/3 with a pulmonary arterial pressure of 44/14 with a mean of 26. Pulmonary capillary wedge pressure was 14 mmHg. Garrick cardiac output was more than 6 L. The PA saturation was 72% and femoral arterial saturation was 93%. There was no shunt. This patient has therefore pulmonary hypertension. CORONARY ANGIOGRAPHY FINDINGS: RIGHT CORONARY ARTERY: Dominant vessel that was stented in the midportion, stented segment is widely patent. Before the stented segment, there is about a 40% narrowing. The caliber of the vessel improves and then distally bifurcates into PDA and PLV, both of which have mild diffuse disease. No significant disease in the RCA and about 40% to 45% proximal lesion noted, unchanged from previous study of 2013. LEFT MAIN CORONARY ARTERY: Short patent vessel, free of significant disease, bifurcates into LAD and circumflex. LEFT ANTERIOR DESCENDING CORONARY ARTERY: This vessel is totally occluded in the midportion after 2 small branches. LEFT POSTERIOR CIRCUMFLEX CORONARY ARTERY: Technically a nondominant vessel gives off good-sized obtuse marginal branches. The first one is smaller and the second one is larger and then continues in the AV groove. No significant disease in the circumflex system noted. SAPHENOUS VEIN GRAFT TO THE RCA: This graft was cannulated using an AR2 catheter. The graft is widely patent at its origin, course, insertion site and the diagonal is opacified and goes back and fills the entire LAD all the way to the apex. No significant disease in the graft. Mild diffuse disease in the [place] LAD noted. A BECERRA graft injection was not performed since the flow through the BECERRA was sluggish on the last coronary angiography. LV pressures were not obtained. FINAL IMPRESSION: This patient has severe aortic stenosis by transesophageal echocardiogram. He has mild to moderate pulmonary hypertension, total occlusion of the mid LAD with widely patent graft to the diagonal that also fills the entire LAD. RCA has a 40% to 45% proximal lesion, but stented segment in the midportion is patent. Circumflex is free of significant disease. Left main is free of significant disease. RECOMMENDATIONS: I am recommending elective aortic valve replacement by percutaneous approach. Patient will see Dr. Bautista and Dr. Fatima. Results were discussed with the patient and and I will see him in the office next week. MMODL / IJN: [id number] /
[2020-06-26] MEDS ORDERED: HYDROcodone/APAP 7.5-325MG 1 EACH TAB PO ONE (14:59)
--- NOTE | 2020-06-26 15:41 | P.TEE ---
Indications for Procedure(s): Aortic stenosis Date of Procedure: 06/26/20 Preoperative Diagnosis: Severe aortic stenosis Postoperative Diagnosis: Severe aortic stenosis with moderate aortic regurgitation and moderate mitral regurgitation Procedure(s) Performed: DEIDRE examination Description of Procedure(s): INDICATION: This is a 69-year-old gentleman with history of ischemic heart disease who is been having exertional shortness of breath and a transthoracic echo was consistent with severe aortic stenosis. A DEIDRE examination is requested for further evaluation CONSENT: Former verbal consent was obtained from the patient PROCEDURE: , Patient was brought to the lab in a fasting state. His prepped and draped in the usual fashion. The throat was sprayed with Hurricaine. Patient was given sedation with 2 mg of IV Versed and 25 g of fentanyl. A lubricated Omni probe was introduced into the oropharynx and was advanced into the esophagus. Multiple views were obtained. Patient tolerated the procedure well. Color, pulsed and continuous flow Doppler studies were performed. A saline contrast bubble injections also performed FINDINGS: . The aortic valve is tricuspid and calcified with restricted opening excursion. By planimetry, we got a valve area about 0.7 cm. There is moderate aortic regurgitation. A peak gradient of about 44 with a mean of 25 was obtained across the aortic valve. There is moderate mitral regurgitation. The PISA value is about 0.8. There is biatrial enlargement. No reversal of flow in the pulmonary veins. No evidence of any PFO. There is calcification of the mitral leaflet, especially the posterior mitral leaflet which appears to be stiff with the restricted opening excursion. IMPRESSION: #1. By planimetry, severe aortic stenosis. However gradient is sized to moderate aortic stenosis. #2. Moderate mitral regurgitation #3. Moderate aortic regurgitation. #4. No PFO #5. Biatrial enlargement. #6. Preserved LV function. #7. Mild to moderate plaque in the aorta PLAN: May consider aortic valve replacement and subsequently mitral regurgitation can be reevaluated.
[2020-06-26 16:14] VITALS: BP 132/68; PULSE 60
== END 2020-06-26 17:20 | disposition home or self-care (01) ==
LOC: CATHCVL 06:33
PROVIDERS: ATTEND Internal Medicine Interventional Cardiology
DX: I08.0 Rheumatic disorders of both mitral and aortic valves (principal); I25.110 Atherosclerotic heart disease of native coronary artery with unstable angina pectoris; I25.82 Chronic total occlusion of coronary artery; I10 Essential (primary) hypertension; E78.5 Hyperlipidemia, unspecified; Z20.822 Contact with and (suspected) exposure to COVID-19; G47.33 Obstructive sleep apnea (adult) (pediatric); Z99.89 Dependence on other enabling machines and devices; E66.01 Morbid (severe) obesity due to excess calories; Z68.41 Body mass index [BMI] 40.0-44.9, adult; J44.9 Chronic obstructive pulmonary disease, unspecified; E78.00 Pure hypercholesterolemia, unspecified; Z95.5 Presence of coronary angioplasty implant and graft; Z95.1 Presence of aortocoronary bypass graft; Z87.891 Personal history of nicotine dependence; Z79.82 Long term (current) use of aspirin; Z79.51 Long term (current) use of inhaled steroids; Z79.899 Other long term (current) drug therapy; Z91.048 Other nonmedicinal substance allergy status
CPT/HCPCS: 93312; 93320; 93325; 93457; 85018; 82810; 87635; C1760; C1894 ×2; C1769 ×2; J2250; J2001; J3010; J1170; Q9967

== ENCOUNTER → 2020-07-09 | Outpatient (CLI) | payer MEDICARE ==
[2020-07-09 15:22] LABS: Appearance,Urine Clear (Clear); Bilirubin,Urine Negative (Negative); Blood,Urine Negative (Negative); Color,Urine Light Yellow; Glucose,Urine (UA) Negative (Negative); Ketones,Urine Negative (Negative); Leukocyte Esterase,Urine Negative (Negative); Nitrite,Urine Negative (Negative); Protein,Urine Negative (Negative); Specific Gravity,Urine 1.012 (1.001-1.035); Urobilinogen,Urine <2.0 mg/dL (<2.0)
[2020-07-09 16:10] LABS: Partial Thromboplastin Time 25.1 sec (22.0-30.0); Prothrombin Time 10.5 sec (9.0-12.0)
[2020-07-09 23:05] LABS: Basophils # (A) 0.06 X 10*3/uL (0.00-0.10); Basophils % (A) 0.8 %; Eosinophils # (A) 0.24 X 10*3/uL (0.04-0.35); Eosinophils % (A) 3.2 %; HCT 43.1 % (39.6-50.0); Lymphocytes % (A) 27.9 %; MCH 31.5 pg (27.0-32.0); MCHC 32.5 g/dL (32.0-37.0); MCV 97.1 fL (80.0-97.0); Mean Platelet Volume 10.4 fL (9.5-12.2); Neutrophils # (A) 4.52 X 10*3/uL (1.80-7.70); Neutrophils % (A) 59.8 %; Platelet Count 197 X 10*3/uL (140-440); RBC 4.44 X 10*6/uL (4.40-5.60); RDW 12.9 % (11.5-14.5); WBC 7.54 X 10*3/uL (4.50-10.00)
[2020-07-10 01:47] LABS: Hemoglobin A1C 5.2 % (4.0-6.0)
[2020-07-10 04:20] LABS: African American GFR (CKD) 87.4 (60.0-200.0); Albumin 4.2 g/dL (3.80-4.90); Albumin/Globulin Ratio 1.62 (1.60-3.17); Anion Gap 9.8 mmol/L (4.00-12.00); Calcium 9.4 mg/dL (8.7-10.3); Carbon Dioxide 22.2 mmol/L (21.6-31.8); Chol/HDL Ratio 3.77; Globulin 2.6 g/dL (1.6-3.3); LDL Cholesterol,Calculated 102.6 mg/dL (0.0-131.0); Magnesium 1.9 mg/dL (1.5-2.4); Non-African American GFR(CKD) 75.4 (60.0-200.0); Potassium 4.5 mmol/L (3.5-5.5); Total Bilirubin 0.4 mg/dL (0.2-1.2); Total Protein 6.8 g/dL (6.2-8.2); VLDL Calculation 19.4 mg/dL (5.00-40.00)
[2020-07-10 05:26] LABS: Hepatitis A Antibody IgM Non-Reactive (Non-Reactive); Hepatitis B Core IgM Non-Reactive (Non-Reactive); Hepatitis B Surface Antigen Non-Reactive (Non-Reactive); Hepatitis C IgG Antibody Non-Reactive (Non-Reactive)
== END | disposition home or self-care (01) ==
LOC: LABWHC1 14:50
PROVIDERS: ATTEND Thoracic Surgery (Cardiothoracic Vascular Surgery)
DX: Z01.812 Encounter for preprocedural laboratory examination (principal); E11.9 Type 2 diabetes mellitus without complications; E87.8 Other disorders of electrolyte and fluid balance, not elsewhere classified; E07.9 Disorder of thyroid, unspecified; I35.0 Nonrheumatic aortic (valve) stenosis; N28.9 Disorder of kidney and ureter, unspecified; E78.5 Hyperlipidemia, unspecified; R35.0 Frequency of micturition; R58 Hemorrhage, not elsewhere classified; Z79.899 Other long term (current) drug therapy
CPT/HCPCS: 36415; 80053; 80061; 80074; 81003; 83036; 83735; 83880; 84443; 85025; 85610; 85730; 87086

== ENCOUNTER → 2020-07-18 | Outpatient (CLI) | payer MEDICARE ==
--- NOTE | 2020-07-18 12:25 | CT ---
EXAMINATION TYPE: CT TAVR Planning DATE OF EXAM: 07/18/2020 HISTORY: preoperative TAVR planning, aortic insufficiency CT DLP: 4791.3 mGycm Automated Exposure Control for Dose Reduction was Utilized. CONTRAST: CT scan of the chest, abdomen and pelvis is performed with IV Contrast, patient injected with 180 mL of Isovue 370. COMPARISON: CT chest 08/14/2016 TECHNIQUE: Helical imaging obtained through the chest, abdomen and pelvis during arterial phase acrlos vivi administration of radiographic contrast intravenously. FINDINGS: See report from [employer] regarding preprocedural planning CHEST: Lower Neck and Thyroid: No significant findings Lungs: No significant findings Central Airway: No significant findings Pleura: No significant findings Pulmonary Arteries: No significant findings Heart and Pericardium: The heart is enlarged. Dense calcifications of the aortic and mitral valves. A theromatous changes of the thoracic aorta without evidence for aneurysm. Lymph Nodes: No significant findings Mediastinum & Esophagus: No significant findings ABDOMEN/PELVIS: Please note arterial phase of the imaging limits detailed evaluation of the solid abdominal organs. Liver: No significant findings Spleen: No significant findings Kidneys: Simple right renal cyst. Adrenal Glands: No significant findings Pancreas: No significant findings Gallbladder: No significant findings Bowel and Mesentery: No significant findings Lymph Nodes: No significant findings Urinary Bladder: No significant findings Pelvic Organs: No significant findings Other: Severe degenerative changes lumbar spine. Other Lines/Tubes/Devices/Hardware: None IMPRESSION: TAVR planning
--- NOTE | 2020-07-18 14:13 | XR ---
EXAMINATION TYPE: XR chest 2V DATE OF EXAM: 07/18/2020 COMPARISON: Chest x-ray 03/23/2016 HISTORY: Aortic valve insufficiency TECHNIQUE: Frontal and lateral views of the chest are obtained. FINDINGS: Patient is post right shoulder arthroplasty. Patient is post median sternotomy, cardiac si lhouette is within normal limits. No evident pneumothorax or pleural effusion. Pulmonary vascularity and erin are within normal limits. There is thoracic spondylosis. IMPRESSION: No acute cardiopulmonary disease.
--- NOTE | 2020-07-19 07:47 | US ---
EXAMINATION TYPE: US carotid duplex BILAT DATE OF EXAM: 07/18/2020 COMPARISON: CT Brain CLINICAL HISTORY: R06.4 Respiratory distress,R55 Syncope I35.1 Nonrheumatic aorta. PRE CABG and aorti c valve replacement; prior smoker EXAM MEASUREMENTS: RIGHT: Peak Systolic Velocity (PSV) cm/sec ----- Right CCA: 78.8 ----- Right ICA: 93.4 ----- Right ECA: 78.8 ICA/CCA ratio: 1.2 RIGHT: End Diastole cm/sec ----- Right CCA: 13.9 ----- Right ICA: 24.6 ----- Right ECA: 0.0 LEFT: Peak Systolic Velocity (PSV) cm/sec ----- Left CCA: 77.5 ----- Left ICA: 100.0 ----- Left ECA: 92.0 ICA/CCA ratio: 1.3 LEFT: End Diastole cm/sec ----- Left CCA: 16.7 ----- Left ICA: 24.6 ----- Left ECA: 0.0 VERTEBRALS (direction of flow): Right Vertebral: Antegrade Left Vertebral: Antegrade Rhythm: Normal Mild to moderate mixed plaque is noted at bilateral carotid bifurcation, but PSV is wnl bilaterally. IMPRESSION: 1. Mild to moderate atherosclerotic plaque at the common carotid artery bifurcations. No hemodynamica lly significant stenosis is seen. These findings are suggestive of less than 50% stenosis of the bila teral internal carotid arteries. Criteria for Assigning % of Stenosis / Diameter reduction (Estimation based on the indirect measurements of the internal carotid artery velocities (ICA PSV). 1. Normal (no stenosis)=ICA PSV < 125 cm/s: ratio < 2.0: ICA EDV<40 cm/s. 2. Less than 50% stenosis=ICA PSV < 125 cm/s: ratio < 2.0: ICA EDV<40 cm/s. 3. 50 to 69% stenosis=ICA PSV of 125 to 230 cm/s: ration 2.0 ? 4.0: ICA EDV 40-100 cm/s. 4. Greater than 70% stenosis to near occlusion= ICA PSV > 230 cm/s: ratio > 4.0: ICA EDV > 100 cm/s. 5. Near occlusion= ICA PSV velocities may be low or undetectable: variable ratio and ICA EDV. 6. Total occlusion=unable to detect flow.
--- NOTE | 2020-07-20 12:01 | P.PN ---
Progress Note - Text Progress Note Date: 07/18/20 A 5 m walk test was completed with the patient, Time 1: 2.53 seconds , Time 2: 2.55 seconds , Time 3: 2.62 seconds.
== END ==
LOC: CPPFTMAIN 10:29
PROVIDERS: ATTEND Thoracic Surgery (Cardiothoracic Vascular Surgery)
DX: I35.1 Nonrheumatic aortic (valve) insufficiency (principal); Z91.030 Bee allergy status; Z91.013 Allergy to seafood; Z87.891 Personal history of nicotine dependence
CPT/HCPCS: 94150; 82565; 84520; 71046; 93880; 71275; 74174; 93005; Q9967 ×2

== ENCOUNTER → 2020-08-09 | Outpatient (CLI) | payer MEDICARE ==
[2020-08-09 23:21] LABS: HCT 40.3 % (39.6-50.0); HGB 13.2 g/dL (13.0-17.0); MCH 31.7 pg (27.0-32.0); MCHC 32.8 g/dL (32.0-37.0); MCV 96.9 fL (80.0-97.0); Mean Platelet Volume 10.4 fL (9.5-12.2); Platelet Count 174 X 10*3/uL (140-440); RBC 4.16 X 10*6/uL (4.40-5.60); RDW 13.2 % (11.5-14.5); WBC 6.97 X 10*3/uL (4.50-10.00)
[2020-08-10 02:57] LABS: African American GFR (CKD) 87.4 (60.0-200.0); Albumin 3.9 g/dL (3.80-4.90); Albumin/Globulin Ratio 1.39 (1.60-3.17); Anion Gap 6.8 mmol/L (4.00-12.00); Calcium 9.6 mg/dL (8.7-10.3); Carbon Dioxide 19.2 mmol/L (21.6-31.8); Globulin 2.8 g/dL (1.6-3.3); Non-African American GFR(CKD) 75.4 (60.0-200.0); Potassium 3.9 mmol/L (3.5-5.5); Total Bilirubin 0.5 mg/dL (0.2-1.2); Total Protein 6.7 g/dL (6.2-8.2)
[2020-08-10 03:38] LABS: INR 1.02 (0.90-1.11); Partial Thromboplastin Time 28.1 sec (23.5-31.0); Prothrombin Time 11.1 sec (9.9-11.9)
== END | disposition home or self-care (01) ==
LOC: LABWHC1 15:02
PROVIDERS: ATTEND Thoracic Surgery (Cardiothoracic Vascular Surgery)
DX: I35.0 Nonrheumatic aortic (valve) stenosis (principal)
CPT/HCPCS: 36415; 80053; 85027; 85610; 85730; 87070

== ENCOUNTER 2020-08-14 09:07 | Inpatient (IN) | payer MEDICARE ==
[~2020-08-14 09:07] MED LIST changes: -ALPRAZolam 0.25 MG TAB PO PRN; -ALPRAZolam 0.5 MG TAB PO PRN; +ASPIRIN 325 MG TAB PO ONE; -ASPIRIN 325 MG TAB PO STA; +ATORVASTATIN 10 MG TAB PO ONE; -ATORVASTATIN 80 MG TAB PO STA; +CARDIOPLEGIC SOLN (K+ 16 MEQ/L 1,000 ML with SODIUM BICARB (1 MEQ/ML) 20 ML, LIDOCAINE ... PERFUSION PRN; +CLEVIDIPINE BUTYRATE 25 MG in EMPTY BAG 1 BAG IV PRN; +CLOPIDOGREL 75 MG TAB PO ONE; +INSULIN REGULAR 100 UNIT in SODIUM CHLORIDE 0.9% 100 ML IV PRN; +LIDOCAINE 1% INJ 10MG/ML (20 ML MDV) ONE; +METOPROLOL TARTRATE 25 MG TAB PO ONE; -NITROGLYCERIN SL TABS 0.4 MG TAB SUBLINGUAL PRN; +NITROGLYCERIN-D5W PMX 25 MG/250 ML BTL IV PRN; +PROTAMINE SULFATE 250 MG in EMPTY BAG 1 BAG IV PRN; +SODIUM CHLORIDE 0.9% 1,000 ML IV ONE; -SODIUM CHLORIDE 0.9% 1,000 ML in EMPTY BAG 1 BAG IV ONE; +SODIUM CHLORIDE 0.9% 500 ML 500 ML INTRAARTER PRN; +TRANEXAMIC ACID 2,000 MG in SODIUM CHLORIDE 0.9% 80 ML IV PRN; +ceFAZolin 3 GM in SODIUM CHLORIDE 0.9% 100 ML IVPB ONE
[2020-08-14 09:44] LABS: Glucose,Whole Blood 87 mg/dL (75-99)
[2020-08-14] MEDS ORDERED: SODIUM CHLORIDE 0.9% 1,000 ML IV ONE (09:51)
--- NOTE | 2020-08-14 12:08 | P.ANPRN ---
Procedure Note - Anesthesia - Invasive Line Left Arterial Line Time Out Performed: Yes Date of Procedure: 08/14/20 Time of Procedure: 11:15 Location of Patient: [facility] Preparation: Sterile Prep, Sterile Dressing Arterial Line Location: Radial Ultrasound Used: Yes Purpose - Visualization and Identification of Vasculature: Yes Needle Guage: 20 Image Stored and Saved: No (no printer on u/s machine) Narrative: Left radial arterial line placed using Seldinger technique under u/s guidance and sterile conditions Right Central Line Time Out Performed: Yes Date of Procedure: 08/14/20 Time of Procedure: 11:30 Location of Patient: [facility] Preparation: Sterile Prep, Sterile Dressing Ultrasound Used: Yes Purpose - Visualization and Identification of Vasculature: Yes Needle Guage: 18 Image Stored and Saved: No (no printer on u/s) Narrative: Central line placement per sterile protocol utilized.
[2020-08-14] MEDS ORDERED: fentaNYL (PF) 50 MCG/ML 2 ML AMP ONE (12:15)
[2020-08-14] MEDS ORDERED: NEOSTIGMINE 1 MG/ML 10 ML VIAL ONE (12:15)
[2020-08-14] MEDS ORDERED: GLYCOPYRROLATE 0.2 MG/ML 2 ML VIAL ONE (12:15)
[2020-08-14] MEDS ORDERED: SUCCINYLCHOLINE CHLORIDE 100 MG/5 ML SYR IV ONE (12:15)
[2020-08-14] MEDS ORDERED: PROPOFOL 10 MG/ML 20 ML VIAL IV ONE (12:15)
[2020-08-14] MEDS ORDERED: MIDAZOLAM 2 MG/2 ML VIAL ONE (12:15)
[2020-08-14] MEDS ORDERED: ceFAZolin 1,000 MG VIAL ONE (12:15)
[2020-08-14] MEDS ORDERED: SODIUM CHLORIDE 0.9% 100 ML BAG ONE (12:15)
[2020-08-14] MEDS ORDERED: HEPARIN SODIUM,PORCINE 10,000 UNIT/ML 1 ML VIAL ONE (12:15)
[2020-08-14] MEDS ORDERED: ROCURONIUM 10 MG/ML (5 ML VIAL) IV ONE (12:15)
[2020-08-14] MEDS ORDERED: LABETALOL 5 MG/ML VIAL MDV ONE (12:15)
[2020-08-14] MEDS ORDERED: LIDOCAINE 1% INJ 10MG/ML (20 ML MDV) ONE (12:32)
[2020-08-14] MEDS ORDERED: ALBUMIN HUMAN 5% 250 ML in EMPTY BAG 1 BAG IVPB PRN (14:02)
[2020-08-14] MEDS ORDERED: LACTATED RINGERS 1,000 ML IV SCH (14:02)
[2020-08-14] MEDS ORDERED: IPRATROPIUM-ALBUTEROL 3 ML NEB INHALATION PRN (14:02)
[2020-08-14] MEDS ORDERED: SYMBICORT 80-4.5 MCG INHALER INHALATION PRN (14:02)
[2020-08-14] MEDS ORDERED: CALCIUM GLUCONATE 2 GM in SODIUM CHLORIDE 0.9% 100 ML IVPB PRN (14:02)
[2020-08-14] MEDS ORDERED: Phosphorus Replacement Protoco 1 EACH MISC MISCELLANE PRN (14:02)
[2020-08-14] MEDS ORDERED: BUDESONIDE 0.5 MG/2 ML NEBU INHALATION PRN (14:02)
[2020-08-14] MEDS ORDERED: ACETAMINOPHEN TAB 325 MG TAB PO PRN (14:02)
[2020-08-14] MEDS ORDERED: Potassium Replacement Protocol 1 EACH MISC MISCELLANE PRN (14:02)
[2020-08-14] MEDS ORDERED: Magnesium Replacement Protocol 1 EACH MISC MISCELLANE PRN (14:02)
[2020-08-14] MEDS ORDERED: ONDANSETRON 4 MG/2 ML VIAL IVP PRN (14:02)
--- NOTE | 2020-08-14 14:18 | P.OP ---
Date of Procedure: 08/14/20 Preoperative Diagnosis: Aortic stenosis Postoperative Diagnosis: Same Procedure(s) Performed: Transcatheter aortic valve replacement with 34 mm core valve evolute proplus Implants: 34 mm evolute proplus Anesthesia: GETA Surgeon: Mahesh Fried Vp Publisher Development #1: Mitchell Little Vp Publisher Development #2: Leeroy Fatima Estimated Blood Loss (ml): 10 IV fluids (ml): 1,000 Urine output (ml): 250 Pathology: none sent Condition: stable Disposition: ICU Indications for Procedure: 70-year-old male with previous coronary artery bypass surgery and sternal nonunion presents with worsening dyspnea and shortness of breath and is found to have severe aortic valvular stenosis. Was evaluated for both surgical and transcatheter aortic valve replacement felt to be appropriate for either an was ultimately decided to proceed with transcatheter valve implant Description of Procedure: Patient was brought to the cardiac catheterization laboratory placed supine on the table. Gen. anesthesia was induced. DEIDRE probe was placed. The anterior torso and bilateral groins were sterilely prepped and draped. The right subclavian vein was punctured with an 18-gauge needle and a 7-[place] introducer and dilator were placed over a guidewire. A screw-in ventricular lead was screwed into the apex of the right ventricle and secured to the skin with 2-0 silk suture ligatures. Bilateral femoral access was obtained using ultrasound by Dr. Fatima. On the left a 6-[place] Dewayne was placed into the descending aorta. On the right 6-[place] sheath was placed and then 2 Perclose devices were deployed. An 8-[place] sheath was placed. The patient was systemically heparinized. Stiff wire was placed on the right and the 8-[place] sheath was removed and the tract dilated up with a tendon 14-[place] dilator and an 18- [place] sheath was placed. On the left a pigtail catheter was advanced into the non-coronary cusp. On the right the valve was crossed with a straight wire and a pigtail was positioned in the apex of the left ventricle. Transverse valvular gradients were obtained. Lunderquist wire was positioned in the apex of the left ventricle. 34 core valve evolute Proplus valve was prepared on the back table and brought up onto the field. The 18-[place] sheath was exchanged for the core valve delivery system over the Lunderquist wire on the right. Cor valve was then advanced across the aortic valve. Root injection was performed to confirm depth. The valve was deployed under rapid ventricular pacing at 140 bpm with of 1 on the right and 3 on the left. Valve deployment proceeded without difficulty. The pigtail catheter was pulled back before release of the valve. The valve delivery system was removed after DEIDRE demonstrated no significant aor tic insufficiency. The valve well positioned and without any significant a Port-A-Cath insufficiency heparin was reversed with protamine. The valve delivery system was re-sheath and removed and the 2 Perclose devices were deployed. Good femoral access was obtained by Dr. Little and Dr. Fatima. Femoral angiography demonstrated no evidence of leak or narrowing on the right common femoral. Dry sterile dressings were applied and the patient was transferred to ICU. Patient did require brief episode of pacing after deployment of the valve but this completely resolved and he was in normal sinus rhythm without significant first-degree block on return to the ICU.
[2020-08-14 14:54] LABS: Basophils # (A) 0.1 k/uL (0-0.2); Basophils % (A) 1 %; Eosinophils # (A) 0.3 k/uL (0-0.7); Eosinophils % (A) 3 %; HCT 39.7 % (39.0-53.0); HGB 13.4 gm/dL (13.0-17.5); Lymphocytes # (A) 1.2 k/uL (1.0-4.8); Lymphocytes % (A) 14 %; MCH 32.4 pg (25.0-35.0); MCHC 33.6 g/dL (31.0-37.0); MCV 96.3 fL (80.0-100.0); Mean Platelet Volume 7.8; Monocytes # (A) 0.4 k/uL (0-1.0); Monocytes % (A) 4 %; Neutrophils # (A) 6.6 k/uL (1.3-7.7); Neutrophils % (A) 76 %; Platelet Count 149 k/uL (150-450); RBC 4.12 m/uL (4.30-5.90); RDW 12.9 % (11.5-15.5); WBC 8.6 k/uL (3.8-10.6)
[2020-08-14] MEDS: HYDROcodone/APAP 7.5-325MG 1 EACH TAB PO PRN (14:57)
[2020-08-14 14:58] LABS: Ionized Calcium 5.2 mg/dL (4.5-5.3)
[2020-08-14 14:58] LABS: ABG Base Excess -5.8 mmol/L; ABG Glucose Whole Blood 89 mg/dL (75-99); ABG HCO3 21 mmol/L (21-25); ABG Hematocrit 42 % (34.0-46.0); ABG Ionized Calcium 5.1 mg/dL (4.5-5.3); ABG Lactic Acid Whole Blood 0.6 mmol/L (0.5-1.6); ABG PCO2 43 mmHg (35-45); ABG PH 7.29 (7.35-7.45); ABG Potassium Whole Blood 3.9 mmol/L (3.4-4.5); ABG Sodium Whole Blood 142 mmol/L (135-146); ABG TCO2 22 mmol/L (19-24)
[2020-08-14 15:02] LABS: ABG PO2 >420 mmHg (83-108)
[2020-08-14 15:04] LABS: ALT 13 U/L (4-49); AST 36 U/L (17-59); African American GFR (CKD) >90 (>60 ml/min/1.73 sqM); Albumin 3.3 g/dL (3.5-5.0); Alkaline Phosphatase 99 U/L (38-126); Anion Gap 4 mmol/L; Blood Urea Nitrogen 27 mg/dL (9-20); Calcium 8.7 mg/dL (8.4-10.2); Carbon Dioxide 22 mmol/L (22-30); Chloride 113 mmol/L (98-107); Glucose 101 mg/dL (74-99); Magnesium 1.7 mg/dL (1.6-2.3); Non-African American GFR(CKD) 89 (>60 ml/min/1.73 sqM); Potassium 3.7 mmol/L (3.5-5.1); Sodium 139 mmol/L (137-145); Total Bilirubin 0.4 mg/dL (0.2-1.3); Total Protein 6.2 g/dL (6.3-8.2)
[2020-08-14 15:07] LABS: INR 1.1 (<1.2); Partial Thromboplastin Time 25.9 sec (22.0-30.0); Prothrombin Time 11.4 sec (9.0-12.0)
[2020-08-14] MEDS ORDERED: MUPIROCIN 2% OINT 22 GM TUBE NASAL ONE (15:15)
--- NOTE | 2020-08-14 15:20 | P.ANPRN ---
Procedure Note - Anesthesia - DEIDRE Intraop Pre Bypass DEIDRE Intraop - Anesthesia Indication: Aortic stenosis Date of Procedure: 08/14/20 Pre-operative Diagnosis: , AI, MR Post-operative Diagnosis: Same Surgeon: Mahesh Fried Ejection Fraction: Normal Regional Wall Motion Abnormalities: None Left Ventricle Hypertrophy: Yes R. Ventricle Function: Normal Aortic Valve: Peak 48 mmHg, Mean 29 mmHg Anatomy: Trileaflet Aortic Stenosis: Moderate Aortic Regurgitation: Moderate Mitral Stenosis: None Mitral Regurgitation: Moderate Tricuspid Stenosis: None Tricuspid Regurgitation: Mild Pulmonic Stenosis: None Pulmonic Regurgitation: None R. Atrial Dilation: No R. Atrial PFO: No L. Atrial Dilation: Yes Aortic Dissection: No Aortic Calcification: Moderate Plural Effusion: None - DEIDRE Intraop Post Bypass DEIDRE Intraop Post Bypass Procedure Performed: TAVR Ejection Fraction: Normal Regional Wall Motion Abnormalities: None R. Ventricle Function: Normal Aortic Valve: Trace perivalvular leak at NCC. Peak 17 mm Hg, Mean 9 mmHg Mitral Valve: Unchanged Tricuspid: Unchanged Pulmonic: Unchanged Aortic Dissection: No
--- NOTE | 2020-08-14 15:28 | P.CNPUL ---
History of Present Illness Consult date: 08/14/20 Reason for consult: dyspnea Chief complaint: Dyspnea History of present illness: This is a 70-year-old white male patient of Dr. Palacio with known history of moderate aortic regurgitation, and mild aortic stenosis calcific with no pulmonary hypertension and preserved EF of 55%, was evaluated on outpatient basis for worsening shortness of breath, and his echocardiogram revealed more severe degree of aortic valve stenosis with a mean gradient of nearly 40 mmHg. There was also some calcific mitral stenosis as well. Patient has a history of coronary artery bypass grafting, with previous history of PCI and stenting. Other medical history includes obstructive sleep apnea and patient uses a CPAP on a regular basis, hypertension, dyslipidemia, and prior history of smoking. On 06/29/2020 patient underwent cardiac catheterization by Dr. GRABIEL Romano, and was found to have total occlusion of the mid LAD with a widely patent graft to the diagonal that also filled the entire LAD. RCA had 40-45% proximal lesion, and the stented segment in the midportion was patent, circumflex was free of significant disease, left main was free of significant disease. Patient is referred to cardiothoracic surgery, and was found to be a good candidate for aortic valve replacement by percutaneous approach or surgical approach. He ultimately decided to proceed with transcatheter valve implant. On 08/14/2020 patient underwent transcatheter aortic valve replacement with 34 mm core valve Evolute proplus. Patient tolerated procedure very well, this was done under general anesthesia, patient was weaned and extubated from mechanical ventilator, and worsening the patient in the intensive care unit following his procedure, she is currently on simple oxygen mask at 10 L and his pulse ox is 97%, his vital signs are stable, hemodynamically patient is stable he is in sinus mechanism with a rate of 62 BPM, he is awake and alert, oriented 2, crit answering questions appropriately. He has a temporary right subclavian pacemaker in place. His bilateral groin puncture sites are clean dry and intact, and soft, no evidence of hematoma, distal pulses are intact, 2+ pedal pulses were noted. She denies any difficulty breathing, he does have former history of smoking, however his preop FEV1 showed FEV1 of 3 L or 88% of predicted. Lungs are clear to auscultation, postprocedure chest x-ray is pending. Review of Systems All systems: negative Constitutional: Denies chills, Denies fever Eyes: denies blurred vision, denies pain Ears, nose, mouth and throat: Denies headache, Denies sore throat Cardiovascular: Denies chest pain, Denies shortness of breath Respiratory: Reports dyspnea, Denies cough Gastrointestinal: Denies abdominal pain, Denies diarrhea, Denies nausea, Denies vomiting Musculoskeletal: Denies myalgias Integumentary: Denies pruritus, Denies rash Neurological: Denies numbness, Denies weakness Psychiatric: Denies anxiety, Denies depression Endocrine: Denies fatigue, Denies weight change Past Medical History Past Medical History: Chest Pain / Angina, Heart Failure, COPD, Dementia, GERD/Reflux, Hearing Disorder / Deafness, Hyperlipidemia, Hypertension, Memory Impairment, Musculoskeletal Disorder, Osteoarthritis (OA), Pneumonia, Sleep Apnea/CPAP/BIPAP Additional Past Medical History / Comment(s): Narcolepsy, uses CPAP, Lumbar Degenarative Disc Disease, bulging discs, chronic back pain, varicose veins, sinus problems, 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 Short term memory issues, beginnings of Dementia. "has learning disability, does not read." History of Any Multi-Drug Resistant Organisms: None Reported Past Surgical History: Adenoidectomy, Coronary Bypass/CABG, Heart Catheterization With Stent, Joint Replacement, Orthopedic Surgery, Tonsillectomy Additional Past Surgical History / Comment(s): Double bypass, "post op wires came apart, went septic and had I&D of sternum. Bilateral cataract surgery, pain clinic procedures(radio frequency ablation), right knee arthroscopy, right knee replacment, right shoulder arthroscopy, right shoulder replacement, DEIDRE Past Anesthesia/Blood Transfusion Reactions: No Reported Reaction Date of Last Stent Placement:: 2004 Smoking Status: Former smoker - Past Family History Father Family Medical History: Coronary Artery Disease (CAD) Additional Family Medical History / Comment(s): heart problems Mother Family Medical History: Cancer Additional Family Medical History / Comment(s): Ovarian cancer. Medications and Allergies Home Medications Medication Instructions Recorded Confirmed Type Aspirin EC [Ecotrin Low Dose] 81 mg PO DAILY 03/23/16 08/14/20 History Escitalopram [Lexapro] 10 mg PO DAILY 03/23/16 08/14/20 History Montelukast [Singulair] 10 mg PO HS 03/23/16 08/14/20 History Simvastatin [Zocor] 40 mg PO HS 03/23/16 08/14/20 History Topiramate [Topamax] 100 mg PO BID 03/23/16 08/14/20 History Albuterol Nebulized [Ventolin 2.5 mg INHALATION BID PRN 10/12/16 08/14/20 History Nebulized] Budesonide [Pulmicort] 0.5 mg INHALATION BID PRN 10/12/16 08/14/20 History Calcium Carbonate/Vitamin D3 1 tab PO DAILY 10/12/16 08/14/20 History [Calcium 500-Vit D3 5 Mcg (200 Iu)] atenoloL [Tenormin] 25 mg PO DAILY 10/12/16 08/14/20 History Hydrocodone/Acetaminophen [Vicodin 1 tab PO TID PRN 06/24/20 08/14/20 History ES 7.5-300 mg] Losartan [Cozaar] 50 mg PO QAM 06/24/20 08/14/20 History Memantine HCl 10 mg PO DAILY 06/24/20 08/14/20 History modafiniL [Provigil] 200 mg PO DAILY 06/24/20 08/14/20 History Fluticasone/Salmeterol [Advair 1 inhalation PO BID PRN 08/12/20 08/14/20 History 250-50 Diskus] Mupirocin 2% Oint [Bactroban 2% 1 applic NASAL BID #1 tube 08/12/20 08/14/20 Rx Oint] Allergies Allergy/AdvReac Type Severity Reaction Status Date / Time bee pollen Allergy Anaphylaxis Verified 08/12/20 15:42 shrimp Allergy Anaphylaxis Verified 08/12/20 15:42 Physical Exam Vitals: Vital Signs Temp Pulse Resp BP BP Pulse Ox 08/14/20 09:52 98.1 F 86 16 146/65 146/65 97 Intake and Output 08/13/20 08/14/20 08/14/20 22:59 06:59 14:59 Intake Total 1000 Balance 1000 Intake: IV 1000 Other: Weight 133.7 kg GENERAL EXAM: Alert, very pleasant, 70-year-old white male, on a simple oxygen mask at 10 L with a pulse ox of 96% comfortable in no apparent distress. HEAD: Normocephalic/atraumatic. EYES: Normal reaction of pupils, equal size. Conjunctiva pink, sclera white. NOSE: Clear with pink turbinates. THROAT: No erythema or exudates. NECK: No masses, no JVD, no thyroid enlargement, no adenopathy. CHEST: No chest wall deformity. Symmetrical expansion. Right upper chest temporary pacemaker insertion site clean dry and intact LUNGS: Equal air entry with no crackles, wheeze, rhonchi or dullness. CVS: Regular rate and rhythm, normal S1 and S2, no gallops, no murmurs, no rubs ABDOMEN: Soft, nontender. No hepatosplenomegaly, normal bowel sounds, no guarding or rigidity. EXTREMITIES: No clubbing, no edema, no cyanosis, 2+ pulses and upper and lower extremities. MUSCULOSKELETAL: Muscle strength and tone normal. Bilateral groin puncture sites clean dry and intact, soft SPINE: No scoliosis or deformity SKIN: No rashes CENTRAL NERVOUS SYSTEM: Alert and oriented -3. No focal deficits, tone is normal in all 4 extremities. PSYCHIATRIC: Alert and oriented -3. Appropriate affect. Intact judgment and insight. Assessment and Plan Plan: Assessment: #1. Dyspnea related to severe aortic stenosis, status post transcatheter aortic valve replacement with a 35 mm core valve evolute proplus, postop day #0 #2. Coronary artery disease with previous history of coronary artery bypass grafting and PCI #3. 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 Former smoker, preop FEV1 was 3.06 or 88% of predicted, relatively normal PFT #5. Obstructive sleep apnea on CPAP therapy at home #6. History of narcolepsy Plan: Postprocedure chest x-ray is pending Weaning FiO2 to keep O2 sats is above 92% Hemodynamically patient is stable Provide incentive spirometer Blood work is pending GI and DVT prophylaxis and antibiotics per CT surgery Patient is in sinus mechanism Not requiring any vasopressor support. No arrhythmias Follow-up chest x-ray in the morning Echocardiogram in the morning We'll continue to closely follow the patient along with CT surgery in the intensive care unit for next 24 hours I performed a history & physical examination of the patient and discussed their management with my nurse practitioner, Heidi Deras. I reviewed the nurse practitioner's note and agree with the documented findings and plan of care. Lung sounds are positive for diminished breath sounds. The findings and the impression was discussed with the patient. I attest to the documentation by the nurse practitioner. Time with Patient: Greater than 30
--- NOTE | 2020-08-14 15:53 | XR ---
EXAMINATION TYPE: XR chest 1V portable DATE OF EXAM: 08/14/2020 COMPARISON: 07/18/2020 HISTORY: Postoperative cardiac surgery TECHNIQUE: Single frontal view of the chest is obtained. FINDINGS: There is elevation of the left hemidiaphragm. Left costophrenic angle is excluded from this image. The lungs are grossly clear. Cardiac silhouette is unchanged with sternotomy wires. IMPRESSION: No significant change since prior examination.
[2020-08-14] MEDS: ceFAZolin 3 GM in SODIUM CHLORIDE 0.9% 100 ML IVPB SCH (17:01)
[2020-08-14] MEDS: IPRATROPIUM-ALBUTEROL 3 ML NEB INHALATION SCH (20:33)
[2020-08-14] MEDS ORDERED: MONTELUKAST 10 MG TAB PO SCH (21:00)
[2020-08-14] MEDS: MUPIROCIN 2% OINT 22 GM TUBE NASAL SCH (21:18)
[2020-08-14] MEDS: TOPIRAMATE 100 MG TAB PO SCH (21:18)
[2020-08-14] MEDS: METOPROLOL TARTRATE 12.5 MG TAB PO SCH (21:18)
--- NOTE | 2020-08-14 21:53 | P.OP ---
Description of Procedure: PROCEDURE PERFORMED: 1. Percutaneous Aortic Valve Implantation using a 34 mm Core-Valve Evolut-Pro Plus. 2. Access and repair of right femoral artery access site by Perclose. INDICATIONS: 1. 70 year-old with a history of severe symptomatic aortic valve stenosis. 2. High surgical risk for AVR due to the reasons below. 3. Acute on chronic diastolic heart failure (NYHA class III symptoms). 4. CAD s/p CABG necesitating removal of sternotomy wires 5. Mild dementia 6. COPD 7. Hypertension 8. Obesity PERFORMING PHYSICIANS: 1. Mitchell Little DO., Interventional Cardiology 2. Leeroy Fatima MD, Interventional Cardiology 3. Mahesh Fried M.D., Cardiothoracic Surgeon. 4. Marisol Hauser MD, Proctoring publicity person SEDATION: General anesthesia by anesthesia, see separate note APPROACH: Right femoral artery via percutaneous approach with 2 Perclose preclose for closure PROCEDURE DESCRIPTION: The patient was discussed at valve clinic and thought better treated with TAVR. Risks, benefits, and alternatives of the procedure had been explained to the patient who understood the risks and agreed to proceed. After consents were obtained, patient was brought to the transcatheter aortic valve implantation room in the cardiac medical laboratory technician and general anesthesia was provided by the anesthesiologist (see separate report). Once full body sterile prep was performed, the left femoral artery was accessed using a modified Seldinger technique. A 6 Pakistani Rabbe sheath was placed in the left femoral artery. Next, a 6-Pakistani pigtail catheter was advanced into the aorta and positioned in the aortic root, aortic root angiography was performed to determine optimal deployment angle. The right femoral artery was accessed using modified Seldinger technique, micropuncture technique and under direct ultrasound guidance. A right femoral angiogram was done showing access in the common femoral artery and a 6Fr sheath was placed. Next preclose technique was performed with 2 6Fr Percloses at the 10 oclock and 2 oclock position. Next a 0.035 Lunderquist wire was placed in the Aorta via a pigtail catheter. Over that serial dilations were made and then an 18F cook sheath was advanced. Next a 6F- AL1 catheter was advanced over a wire to the aortic root. A straight wire was advanced through the catheter and used to cross the severely stenotic valve. The AL1 was then exchanged for a pigtail and pressure measurements were obtained with a mean gradient of 35mmHg. The pigtail was exchanged for a 0.035 Lunderquist wire. Next a 34mm Corevalve Evolut-Pro Plus was advanced. The valve was then positioned across the aortic valve and confirmed with aortic root angiography. The 34 mm valve was then deployed in a proper position using slow deployment in conjuncture with aortic root angiography and DEIDRE. The delivery system was withdrawn back into the arch and an aortic root injection in conjunction with DEIDRE demonstrated a satisfactory result. There was no evidence of any significant para valvular leak. There was no evidence of any other significant abnormalities. Patient did have temporary 3rd degree heart block however this resolved within a few minutes. The closure of the right femoral artery access site was then performed with the 2 Precloses and there was still some oozing and therefore an 8Fr Angioseal was placed. A 5Fr Rim catheter was then advanced via the left femoral access and femoral angiogram showed no significant extravasation. The left femoral angiogram then demonstrated an arteriotomy in the common femoral artery. This was repaired using a 6F angioseal device with complete hemostasis. The pacemaker wire placed by the surgery team was left in place to be pulled later. The patient was then transported to the [facility] in hemodynamically stable condition, requiring no pressor support. COMPLICATIONS: None CONCLUSION: 1. Implantaion of a 34mm Core-Valve Evolut-Pro Plus transcatheter aortic valve via right femoral approach under DEIDRE and fluoro guidance with no gabriel-valvular aortic regurgitation. RECOMMENDATIONS: The patient will be monitored in the ICU for hemodynamic and electrical stability. Patient will be on aspirin and Plavix.
[2020-08-15] MEDS: HEPARIN SODIUM,PORCINE/PF 5,000 UNIT/0.5 ML SYRINGE SQ SCH ×2 (01:28→09:05)
[2020-08-15] MEDS: ceFAZolin 3 GM in SODIUM CHLORIDE 0.9% 100 ML IVPB SCH (01:28)
[2020-08-15 06:12] LABS: Basophils % (A) 0 %; Eosinophils # (A) 0.3 k/uL (0-0.7); Eosinophils % (A) 3 %; HCT 39.3 % (39.0-53.0); Lymphocytes # (A) 1.1 k/uL (1.0-4.8); Lymphocytes % (A) 11 %; MCH 33.7 pg (25.0-35.0); MCHC 35.5 g/dL (31.0-37.0); Mean Platelet Volume 7.4; Monocytes # (A) 0.8 k/uL (0-1.0); Monocytes % (A) 9 %; Neutrophils # (A) 7.4 k/uL (1.3-7.7); Neutrophils % (A) 76 %; Platelet Count 136 k/uL (150-450); RBC 4.14 m/uL (4.30-5.90); RDW 12.9 % (11.5-15.5); WBC 9.7 k/uL (3.8-10.6)
[2020-08-15] MEDS: IPRATROPIUM-ALBUTEROL 3 ML NEB INHALATION SCH ×2 (07:21→12:20)
[2020-08-15] MEDS ORDERED: PANTOPRAZOLE 40 MG TABLET PO SCH (07:30)
[2020-08-15 07:49] LABS: ALT 13 U/L (4-49); African American GFR (CKD) >90 (>60 ml/min/1.73 sqM); Anion Gap 8 mmol/L; Blood Urea Nitrogen 23 mg/dL (9-20); Calcium 8.9 mg/dL (8.4-10.2); Carbon Dioxide 20 mmol/L (22-30); Chloride 112 mmol/L (98-107); Glucose 94 mg/dL (74-99); Non-African American GFR(CKD) 87 (>60 ml/min/1.73 sqM); Sodium 140 mmol/L (137-145); Total Bilirubin 0.8 mg/dL (0.2-1.3)
[2020-08-15 07:50] LABS: Magnesium 1.9 mg/dL (1.6-2.3); Potassium 4.9 mmol/L (3.5-5.1)
[2020-08-15 07:51] LABS: AST 41 U/L (17-59); Albumin 3.6 g/dL (3.5-5.0); Alkaline Phosphatase 91 U/L (38-126)
--- NOTE | 2020-08-15 08:04 | P.PN ---
Subjective Progress Note Date: 08/15/20 Principal diagnosis: Severe symptomatic aortic stenosis. Previous medical history of chronic diastolic heart failure with EF 55% and NYHA class III symptoms, coronary artery disease with previous myocardial infarction status post PCI and 2 vessel CABG with nonunion and removal of sternotomy wires, hypertension, hyperlipidemia, obstructive sleep apnea with home CPAP use, obesity, previous tobacco dependence, and mild dementia POD #1 transcatheter aortic valve replacement with a 34 mm Core Valve Evolut- Pro+, access and repair of right femoral artery access site by Perclose The patient's currently sitting up in a recliner in the intensive care unit in no acute distress eating breakfast. He denies any pain or shortness of breath. Remains in sinus rhythm with heart rate in the 80s, hemodynamically stable. Bilateral groin sites is soft, nontender without drainage. He has been ambulatory in his room without difficulty. Transthoracic echocardiogram scheduled for today. The patient had an uneventful night and there are no new concerns. Objective - Vital Signs Vital signs: Vital Signs Temp 98.1 F 08/15/20 00:00 Pulse 67 08/15/20 07:28 Resp 18 08/15/20 07:00 BP 127/66 08/15/20 07:00 Pulse Ox 94 L 08/15/20 07:22 Intake & Output 08/14/20 08/15/20 08/15/20 18:59 06:59 18:59 Intake Total 1672 700 50 Output Total 1425 250 Balance 1672 -725 -200 Weight 133.7 kg 135 kg Intake: IV 1250 700 50 Lactated Ringers 1,000 ml 150 600 50 @ 50 mls/hr IV .Q20H ESTEBAN Rx#:[id number] ceFAZolin 3 gm In Sodium 100 100 Chloride 0.9% 100 ml @ 100 mls/hr IVPB Q8HR ESTEBAN Rx#:[id number] Oral 422 Output: Urine 1425 250 Other: Voiding Method Urinal Urinal # Voids 0 1 ABP, PAP, CO, CI - Last Documented Arterial Blood Pressure 176/63 - Exam CONSTITUTIONAL: Appears comfortable, cooperative, no acute distress RESPIRATORY: Lungs sounds diminished bilaterally. Respirations even, nonlabored. Currently on room air with oxygen saturation 94%. Able to achieve 3000 mL on incentive spirometry. Strong cough. CARDIOVASCULAR: S1, S2 present. Regular rate and rhythm, sinus rhythm on telemetry with heart rate in the 80s. Sternum stable. Palpable peripheral pulses bilaterally. No edema present. No calf pain or tenderness noted. GASTROINTESTINAL: Abdomen soft, nontender, nondistended. Active bowel sounds present 4 quadrants. Tolerating diet. GENITOURINARY: Continues to void clear, yellow urine INTEGUMENTARY: Skin is warm and dry with evidence of good perfusion. Bilateral groins soft, nontender without drainage NEUROLOGIC: Cranial nerves II through XII intact MUSKULOSKELETAL: Able to move all extremities, strength equal bilaterally, gait normal PSYCHIATRIC: Alert and oriented to person place and time, appropriate affect, intact judgment and insight INVASIVE LINES AND TUBES: Temporary pacemaker wires present, grounded - Allied health notes Allied health notes reviewed: nursing - Labs CBC & Chem 7: 08/15/20 05:55 08/14/20 14:45 Labs: Abnormal Lab Results - Last 24 Hours (Table) 08/14/20 08/14/20 08/14/20 Range/Units 12:44 14:45 14:45 RBC 4.12 L (4.30-5.90) m/uL Plt Count 149 L (150-450) k/uL ABG pH 7.29 L (7.35-7.45) ABG pO2 >420 H (83-108) mmHg ABG O2 Saturation 100.0 H (94-97) % Chloride 113 H (98-107) mmol/L BUN 27 H (9-20) mg/dL Glucose 101 H (74-99) mg/dL Total Protein 6.2 L (6.3-8.2) g/dL Albumin 3.3 L (3.5-5.0) g/dL 08/15/20 Range/Units 05:55 RBC 4.14 L (4.30-5.90) m/uL Plt Count 136 L (150-450) k/uL ABG pH (7.35-7.45) ABG pO2 (83-108) mmHg ABG O2 Saturation (94-97) % Chloride (98-107) mmol/L BUN (9-20) mg/dL Glucose (74-99) mg/dL Total Protein (6.3-8.2) g/dL Albumin (3.5-5.0) g/dL - Imaging and Cardiology Chest x-ray: image reviewed Assessment and Plan Assessment: 1. Severe symptomatic aortic stenosis, status post transcatheter aortic valve replacement with a 34 mm Core Valve Evolut-Pro+ 2. History of chronic diastolic heart failure with EF 55% and NYHA class III symptoms 3. Coronary artery disease with previous myocardial infarction status post PCI and 2 vessel CABG with nonunion and removal of sternotomy wires 4. Hypertension 5. Hyperlipidemia 6. Obstructive sleep apnea with home CPAP use 7. Obesity 8. Previous tobacco dependence 9. Mild dementia Plan: 1. Continue aspirin, statin, Plavix, beta poornima therapy 2. Will obtain a transthoracic echocardiogram this morning 3. Will discontinue temporary pacemaker wire 4. Increase activity, ambulate as tolerated 5. Likely will discharge to home this afternoon. Appointment will be made to follow up in one week for groin check at [facility], follow-up appointment to be made at cardiology/valve clinic for 30 day echo, K CCQ-12, and lab work Time with Patient: Greater than 30
--- NOTE | 2020-08-15 08:30 | XR ---
EXAMINATION TYPE: XR chest 1V portable DATE OF EXAM: 08/15/2020 COMPARISON: 08/14/2020 HISTORY: Postop TECHNIQUE: Single frontal view of the chest is obtained. FINDINGS: Heart is enlarged and there is postsurgical changes. Prostatic right shoulder. Left lower lobe subsegmental consolidation elevated hemidiaphragm. No overt failure or pneumothorax. Atheroscler otic change aorta. IMPRESSION: Cardiac megaly with left basilar infiltrate.
[2020-08-15] MEDS ORDERED: MAGNESIUM HYDROXIDE 2,400 MG/10 ML CUP PO PRN (09:00)
[2020-08-15] MEDS ORDERED: CLOPIDOGREL 75 MG TAB PO SCH (09:00)
[2020-08-15] MEDS ORDERED: CALCIUM CARB-VIT D 500 MG-5 MCG TAB PO SCH (09:00)
[2020-08-15] MEDS ORDERED: METOPROLOL TARTRATE 12.5 MG TAB PO SCH (09:00)
[2020-08-15] MEDS ORDERED: ATORVASTATIN 40 MG TAB PO SCH (09:00)
[2020-08-15] MEDS ORDERED: MEMANTINE 10 MG TAB PO SCH (09:00)
[2020-08-15] MEDS ORDERED: ASPIRIN 81 MG PO SCH (09:00)
[2020-08-15] MEDS ORDERED: bisacodyL 10 MG SUPP RECTAL PRN (09:00)
[2020-08-15] MEDS ORDERED: ESCITALOPRAM 10 MG TAB PO SCH (09:00)
[2020-08-15] MEDS ORDERED: LOSARTAN 50 MG TAB PO SCH (09:00)
[2020-08-15] MEDS: HYDROcodone/APAP 7.5-325MG 1 EACH TAB PO PRN (09:04)
[2020-08-15] MEDS: TOPIRAMATE 100 MG TAB PO SCH (09:06)
[2020-08-15] MEDS: METOPROLOL TARTRATE 12.5 MG TAB PO SCH (09:06)
[2020-08-15 09:30] VITALS: RESP 16
--- NOTE | 2020-08-15 09:31 | P.PN ---
Subjective Progress Note Date: 08/15/20 Principal diagnosis: Aortic valve stenosis This is a 70-year-old white male patient of Dr. Palacio with known history of moderate aortic regurgitation, and mild aortic stenosis calcific with no pulmonary hypertension and preserved EF of 55%, was evaluated on outpatient basis for worsening shortness of breath, and his echocardiogram revealed more severe degree of aortic valve stenosis with a mean gradient of nearly 40 mmHg. There was also some calcific mitral stenosis as well. Patient has a history of coronary artery bypass grafting, with previous history of PCI and stenting. Other medical history includes obstructive sleep apnea and patient uses a CPAP on a regular basis, hypertension, dyslipidemia, and prior history of smoking. On 06/29/2020 patient underwent cardiac catheterization by Dr. GRABIEL Romano, and was found to have total occlusion of the mid LAD with a widely patent graft to the diagonal that also filled the entire LAD. RCA had 40-45% proximal lesion, and the stented segment in the midportion was patent, circumflex was free of significant disease, left main was free of significant disease. Patient is referred to cardiothoracic surgery, and was found to be a good candidate for aortic valve replacement by percutaneous approach or surgical approach. He ultimately decided to proceed with transcatheter valve implant. On 08/14/2020 patient underwent transcatheter aortic valve replacement with 34 mm core valve Evolute proplus. Patient tolerated procedure very well, this was done under general anesthesia, patient was weaned and extubated from mechanical ventilator, and worsening the patient in the intensive care unit following his procedure, she is currently on simple oxygen mask at 10 L and his pulse ox is 97%, his vital signs are stable, hemodynamically patient is stable he is in sinus mechanism with a rate of 62 BPM, he is awake and alert, oriented 2, crit answering questions appropriately. He has a temporary right subclavian pace maker in place. His bilateral groin puncture sites are clean dry and intact, and soft, no evidence of hematoma, distal pulses are intact, 2+ pedal pulses were noted. She denies any difficulty breathing, he does have former history of smoking, however his preop FEV1 showed FEV1 of 3 L or 88% of predicted. Lungs are clear to auscultation, postprocedure chest x-ray is pending. On 08/15/2020 patient seen in follow-up in intensive care unit, today is postop day #1, status post transcatheter aortic valve replacement, and placement of a right subclavian temporary pacemaker. This morning she is up in chair, he is on room air, breathing comfortably, vital signs are stable, he is in sinus mechan ism, no arrhythmias overnight, his pacemaker is on the backup mode. Denies any difficulty breathing, room air pulse ox is 94%. IV fluids are infusing at 20 mg per hour, no vasopressor support. He is on inhalers and breathing treatments, no difficulty breathing, no cough, no wheezing. Today's chest x-ray has been reviewed and cardiomegaly and left basilar infiltrate, and elevation of the left hemidiaphragm was also seen in yesterday chest x-ray. Repeat events overnight. Today's labs have been reviewed, but cell count was 9.7, hemoglobin is 14, platelet count was 136, INR is 1.1, sodium is 140, potassium is 4.9, chloride is 112, CO2 is 20, BUN is 23, creatinine 0.86 Objective - Vital Signs Vital signs: Vital Signs Temp 98.1 F 08/15/20 00:00 Pulse 67 08/15/20 07:28 Resp 18 08/15/20 07:00 BP 127/66 08/15/20 07:00 Pulse Ox 94 L 08/15/20 07:22 Intake & Output 08/14/20 08/15/20 08/15/20 18:59 06:59 18:59 Intake Total 1672 700 50 Output Total 1425 250 Balance 1672 -725 -200 Weight 133.7 kg 135 kg Intake: IV 1250 700 50 Lactated Ringers 1,000 ml 150 600 50 @ 50 mls/hr IV .Q20H ESTEBAN Rx#:[id number] ceFAZolin 3 gm In Sodium 100 100 Chloride 0.9% 100 ml @ 100 mls/hr IVPB Q8HR ESTEBAN Rx#:[id number] Oral 422 Output: Urine 1425 250 Other: Voiding Method Urinal Urinal # Voids 0 1 ABP, PAP, CO, CI - Last Documented Arterial Blood Pressure 176/63 - Exam GENERAL EXAM: Alert, very pleasant, 70-year-old white male, on a simple oxygen mask at 10 L with a pulse ox of 96% comfortable in no apparent distress. HEAD: Normocephalic/atraumatic. EYES: Normal reaction of pupils, equal size. Conjunctiva pink, sclera white. NOSE: Clear with pink turbinates. THROAT: No erythema or exudates. NECK: No masses, no JVD, no thyroid enlargement, no adenopathy. CHEST: No chest wall deformity. Symmetrical expansion. Right upper chest temporary pacemaker insertion site clean dry and intact LUNGS: Equal air entry with no crackles, wheeze, rhonchi or dullness. CVS: Regular rate and rhythm, normal S1 and S2, no gallops, no murmurs, no rubs ABDOMEN: Soft, nontender. No hepatosplenomegaly, normal bowel sounds, no guarding or rigidity. EXTREMITIES: No clubbing, no edema, no cyanosis, 2+ pulses and upper and lower extremities. MUSCULOSKELETAL: Muscle strength and tone normal. Bilateral groin puncture sites clean dry and intact, soft SPINE: No scoliosis or deformity SKIN: No rashes CENTRAL NERVOUS SYSTEM: Alert and oriented -3. No focal deficits, tone is normal in all 4 extremities. PSYCHIATRIC: Alert and oriented -3. Appropriate affect. Intact judgment and insight. - Labs CBC & Chem 7: 08/15/20 05:55 08/15/20 05:55 Labs: Abnormal Lab Results - Last 24 Hours (Table) 08/14/20 08/14/20 08/14/20 Range/Units 12:44 14:45 14:45 RBC 4.12 L (4.30-5.90) m/uL Plt Count 149 L (150-450) k/uL ABG pH 7.29 L (7.35-7.45) ABG pO2 >420 H (83-108) mmHg ABG O2 Saturation 100.0 H (94-97) % Chloride 113 H (98-107) mmol/L Carbon Dioxide (22-30) mmol/L BUN 27 H (9-20) mg/dL Glucose 101 H (74-99) mg/dL Total Protein 6.2 L (6.3-8.2) g/dL Albumin 3.3 L (3.5-5.0) g/dL 08/15/20 08/15/20 Range/Units 05:55 05:55 RBC 4.14 L (4.30-5.90) m/uL Plt Count 136 L (150-450) k/uL ABG pH (7.35-7.45) ABG pO2 (83-108) mmHg ABG O2 Saturation (94-97) % Chloride 112 H (98-107) mmol/L Carbon Dioxide 20 L (22-30) mmol/L BUN 23 H (9-20) mg/dL Glucose (74-99) mg/dL Total Protein (6.3-8.2) g/dL Albumin (3.5-5.0) g/dL Assessment and Plan Plan: Assessment: #1. Dyspnea related to severe aortic stenosis, status post transcatheter aortic valve replacement with a 35 mm core valve evolute proplus, postop day #1 #2. Coronary artery disease with previous history of coronary artery bypass grafting and PCI #3. 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 Former smoker, preop FEV1 was 3.06 or 88% of predicted, relatively normal PFT #5. Obstructive sleep apnea on CPAP therapy at home #6. History of narcolepsy Plan: Patient is doing well on postoperative day #1 Hemodynamically he remains stable No arrhythmias overnight Neurologically intact No difficulty breathing, he remains on room air Encourage incentive spirometer use Chest x-ray has been reviewed Echocardiogram has been completed and results are pending GI and DVT prophylaxis and antibiotics per CT surgery Increase activity as tolerated Possible discharge home later today I performed a history & physical examination of the patient and discussed their management with my nurse practitioner, Heidi Deras. I reviewed the nurse practitioner's note and agree with the documented findings and plan of care. Lung sounds are positive for diminished breath sounds. The findings and the impression was discussed with the patient. I attest to the documentation by the nurse practitioner. Time with Patient: Less than 30
--- NOTE | 2020-08-15 12:13 | ECHOF ---
Referral Reason:post tavr MEASUREMENTS -------- HEIGHT: 157.5 cm WEIGHT: 133.8 kg BP: 133/73 AV maxP.80 mmHg AV meanP.83 mmHg FINDINGS -------- Sinus rhythm. This was a technically difficult study with suboptimal views. Adithya & TAVR procedure 08/10/20: Limited study for follow up of aortic valve. LV size, wall thickness and systolic function are normal, with an EF greater than 55%. Trace to mild aortic regurgitation. Peak/mean gradient across the Aortic Valve is 11.80mmHg / 5.83m mHg. TAVR done Moderate mitral annular calcification present. There is no pericardial effusion. CONCLUSIONS -------- 1. Adithya & TAVR procedure 08/10/20: Limited study for follow up of aortic valve. 2. LV size, wall thickness and systolic function are normal, with an EF greater than 55%. 3. Trace to mild aortic regurgitation. 4. Peak/mean gradient across the Aortic Valve is 11.80mmHg / 5.83mmHg. 5. TAVR done 6. Moderate mitral annular calcification present. 7. There is no pericardial effusion. PIPELINE SUPERINTENDENT DIVISION: Corinna Hurley RDCS
[2020-08-15 12:28] VITALS: TEMP 98.5
[2020-08-15] MEDS: MUPIROCIN 2% OINT 22 GM TUBE NASAL SCH (12:31)
[2020-08-15 13:17] VITALS: BP 130/57; PULSE 78
--- NOTE | 2020-08-15 13:27 | P.DS ---
Providers Date of admission: 08/14/20 09:07 Expected date of discharge: 08/15/20 Attending physician: Leeroy Fatima Consults: 08/14/20 13:58 Consult Physician Routine Consulting Provider: Mahesh Fried Consult Reason/Comments: tavr Do you want consulting provider notified?: Already Contacted Placement Type Exists?: Yes 08/14/20 14:02 Consult Physician Routine Consulting Provider: Kaykay Garcia Consult Reason/Comments: [employer] Consult: post cardiac surgery Do you want consulting provider notified?: Yes Primary care physician: [facility] Course: FINAL DIAGNOSES: 1. Severe symptomatic aortic stenosis 2. History of chronic diastolic heart failure, EF 55%, NYHA class III symptoms 3. Coronary artery disease with previous myocardial infarction, status post PCI, status post 2 vessel CABG with nonunion and removal of sternotomy wires 4. History of hypertension 5. History of hyperlipidemia, treated 6. Obstructive sleep apnea with home CPAP use 7. Obesity 8. Previous tobacco dependence 9. Mild dementia PRINCIPAL PROCEDURE: 1. Transcatheter aortic valve replacement with 349 mm Core-Valve Evolut-Pro Plus via percutaneous transfemoral approach 2. Transesophageal echocardiography 3. Access and repair of right femoral artery access site by Perclose device 4. Placement of temporary pacemaker wire 5. Aortoiliac angiogram 6. Selective bilateral common femoral artery angiogram HISTORY OF PRESENT ILLNESS: This is a pleasant obese 70-year-old male patient who follows on an outpatient basis with Dr. Mine Delvalle for primary care and Dr. GRABIEL Romano for cardiology. He has a known history of severe aortic stenosis and has been experiencing increasing exertional dyspnea, fatigue, and sleepiness. He has undergone workup for aortic valve replacement including TTE demonstrating a mean gradient of 42 mmHg and peak velocity 4.0 M/S, and DEIDRE demonstrating aortic valve area 0.7 CM with a mean gradient of 25 MMHG. Cardiac c atheterization demonstrated patent mid RCA stent, left internal mammary artery to the left anterior descending artery with sluggish flow, patent saphenous vein graft to the right coronary artery, and no significant disease in the circumflex artery. Computed tomography scan was performed demonstrating good femoral axis bilaterally and valve was sized to a 34 mm Core-Valve. He was seen in the valve clinic by Dr. Fatima and Dr. Bautista, and was felt to be very high risk for surgical aortic valve replacement, and recommendation was made for transcatheter aortic valve replacement. The usual perioperative course was discussed in detail with the patient and his , all risks and benefits were explained, all questions were answered, and consent was obtained to proceed with surgery. The patient w as scheduled for TAVR after obtaining dental clearance. HOSPITAL COURSE: The patient was brought to the hospital on 08/14/2020, taken to the extended stay area, prepared in the usual fashion, and subsequently taken to the [facility] where Dr. Little and Dr. Fried completed TAVR procedure under general anesthesia with fluoroscopy and DEIDRE. The valve was deployed under rapid ventricular pacing and proceeded without event. At the end of the procedure there was no evidence of gradient, hemodynamics were felt to be excellent, and there was no evidence of significant perivalvular leak.. Upon completion of the procedure the patient extubated and was transferred to the cardiovascular intensive care unit where he was recovered and monitored hemodynamically. His oxygen was titrated down, he was tolerating oral diet, his pain was controlled, follow-up TTE demonstrated normal left ventricular systolic function with EF >55%, trace to mild aortic insufficiency, and mean gradient across the aortic valve 5.83 mmHg, and he was ready to be discharged to home on postoperative day #1. He received written and verbal instruction regarding his medications, activity restrictions, signs and symptoms requiring physician notification, and follow-up appointments. COMPLICATIONS: The patient experienced no postoperative complications. Patient Condition at Discharge: Stable Plan - Discharge Summary Discharge Rx Participant: No New Discharge Prescriptions: New Clopidogrel [Plavix] 75 mg PO DAILY #30 tab Acetaminophen Tab [Tylenol] 650 mg PO Q4HR PRN tab PRN Reason: Fever And/ Or Mild Pain (1-3) Continue Topiramate [Topamax] 100 mg PO BID Simvastatin [Zocor] 40 mg PO HS Aspirin EC [Ecotrin Low Dose] 81 mg PO DAILY Escitalopram [Lexapro] 10 mg PO DAILY Montelukast [Singulair] 10 mg PO HS Budesonide [Pulmicort] 0.5 mg INHALATION BID PRN PRN Reason: Dyspnea atenoloL [Tenormin] 25 mg PO DAILY Calcium Carbonate/Vitamin D3 [Calcium 500-Vit D3 5 Mcg (200 Iu)] 1 tab PO DAILY Albuterol Nebulized [Ventolin Nebulized] 2.5 mg INHALATION BID PRN PRN Reason: Dyspnea modafiniL [Provigil] 200 mg PO DAILY Fluticasone/Salmeterol [Advair 250-50 Diskus] 1 inhalation PO BID PRN PRN Reason: Shortness Of Breath Losartan [Cozaar] 50 mg PO QAM Hydrocodone/Acetaminophen [Vicodin ES 7.5-300 mg] 1 tab PO TID PRN PRN Reason: Pain Memantine HCl 10 mg PO DAILY Discontinued Mupirocin 2% Oint [Bactroban 2% Oint] 1 applic NASAL BID #1 tube Discharge Medication List Aspirin EC [Ecotrin Low Dose] 81 mg PO DAILY 03/23/16 [History] Escitalopram [Lexapro] 10 mg PO DAILY 03/23/16 [History] Montelukast [Singulair] 10 mg PO HS 03/23/16 [History] Simvastatin [Zocor] 40 mg PO HS 03/23/16 [History] Topiramate [Topamax] 100 mg PO BID 03/23/16 [History] Albuterol Nebulized [Ventolin Nebulized] 2.5 mg INHALATION BID PRN 10/12/16 [History] Budesonide [Pulmicort] 0.5 mg INHALATION BID PRN 10/12/16 [History] Calcium Carbonate/Vitamin D3 [Calcium 500-Vit D3 5 Mcg (200 Iu)] 1 tab PO DAILY 10/12/16 [History] atenoloL [Tenormin] 25 mg PO DAILY 10/12/16 [History] Hydrocodone/Acetaminophen [Vicodin ES 7.5-300 mg] 1 tab PO TID PRN 06/24/20 [History] Losartan [Cozaar] 50 mg PO QAM 06/24/20 [History] Memantine HCl 10 mg PO DAILY 06/24/20 [History] modafiniL [Provigil] 200 mg PO DAILY 06/24/20 [History] Fluticasone/Salmeterol [Advair 250-50 Diskus] 1 inhalation PO BID PRN 08/12/20 [History] Acetaminophen Tab [Tylenol] 650 mg PO Q4HR PRN tab 08/15/20 [Rx] Clopidogrel [Plavix] 75 mg PO DAILY #30 tab 08/15/20 [Rx] Follow up Appointment(s)/Referral(s): Florencia Esteban, RINA [Nurse Practitioner] - 09/20/20 1:15 pm (to be seen in [facility], [address], [address] (in [facility], [place]) for labs and post TAVR paperwork) Rose Romano MD [STAFF PHYSICIAN] - 09/20/20 2:00 pm (office will call with appointment in next 1-2 weeks for groin check, appointment 09/20/20 is for post TAVR echo) Mine Palacio DO [Primary Care Provider] - As Needed Activity/Diet/Wound Care/Special Instructions: DISCHARGE INSTRUCTIONS: 1. No driving for 1 week, or until physician gives their ok. 2. No lifting, pushing, or pulling more than 5-10 pounds for 1 week. 3. Hold both groins when you cough or sneeze for the next 2 weeks. Bruising is common, but report increased swelling, pain or fever >101F 4. Shower daily. No pool, hot tub, or bathtub for 1 week 5. No powders, lotions, ointments on incisions. 6. No straining, including for bowel movements. Use stool softner if necessary 7. Stairs are not an issue. Go slowly, using handrail and take 1 step at a time. Ambulate several times daily 8. Continue pain control per as needed orders. 9. Take only the medications listed on your discharge form 10. Eat low salt (limited to 2 grams or 2000 milligrams) daily, avoid adding salt, avoid canned/processed foods 11. Take your weight daily in the morning and record, bring with you to your follow up appointments 12. Keep all follow up appointments. You will need a valve clinic appointment at 30 days and 1 year post procedure for follow up 13. You have been referred to and are expected to begin Cardiac Rehab in approximately 4 weeks. 14. You will need antibiotics prior to any dental work, including cleanings, and any surgeries to prevent Endocarditis (bacterial infection in your heart) For any questions or concerns please call your valve coordinators: Florencia @ or Vadim @ Discharge Disposition: HOME SELF-CARE
[2020-08-15 14:22] VITALS: BMI 42.7
[2020-08-15] MEDS ORDERED: SENNOSIDES-DOCUSATE SODIUM 1 EACH TAB PO SCH (21:00)
--- NOTE | 2020-08-20 11:01 | CDI ---
Documentation Clarification Form Date: 08/20/20 From: Paola Tineo Admit Date: 08/14/2020 09:07:00 AM Patient Name: Jose Coon Visit Number: [id number] Discharge Date: 08/15/2020 01:38:00 PM ATTENTION: The Clinical Documentation Specialists (CDI) and [facility] Coding Staff appreciate your assistance in clarifying documentation. Please respond to the clarification below the line at the bottom and electronically sign. The CDI & [facility] Coding staff will review the response and follow-up if needed. Please note: Queries are made part of the Legal Health Record. If you have any questions, please contact the author of this message via ITS. Dr. Mitchell Little, Conflicting documentation has been found in the medical record. As attending physician, please provide clarification. Per your procedure note "acute on chronic diastolic heart failure". Per you discharge summary "history of chronic diastolic heart failure". History/Risk Factors: aortic stenosis with mitral stenosis, CABG, hypertensive heart disease Clinical Indicators: 08/14 CXR: No significant change since prior examination. 08/15 CXR: Heart is enlarged and there is postsurgical changes. Prosthetic right shoulder. Left lower lobe subsegmental consolidation elevated hemidiaphragm. No overt failure or pneumothorax. Atherosclerotic change aorta. IMPRESSION: Cardiomegaly with left basilar infiltrate. Treatment: Jordon Please clarify which diagnosis is most appropriate: [ ] Acute and chronic diastolic heart failure [X ] Chronic diastolic heart failure [ ] Unable to determine MTDD
== END 2020-08-15 13:38 | disposition home or self-care (01) | DRG 267 ==
LOC: 2ORMAIN 09:07 → 2SICU 13:48
PROVIDERS: ADMIT Thoracic Surgery (Cardiothoracic Vascular Surgery); ATTEND Internal Medicine Interventional Cardiology
PROC: 5A1223Z Performance of Cardiac Pacing, Continuous (ICD-10-PCS; principal; 2020-08-14 11:00)
PROC: 02RF38Z Replacement of Aortic Valve with Zooplastic Tissue, Percutaneous Approach (ICD-10-PCS; principal; 2020-08-14 11:00)
PROC: B24BZZ4 Ultrasonography of Heart with Aorta, Transesophageal (ICD-10-PCS; principal; 2020-08-14 11:00)
PROC: B3101ZZ Fluoroscopy of Thoracic Aorta using Low Osmolar Contrast (ICD-10-PCS; 2020-08-14 11:00)
PROC: B41G1ZZ Fluoroscopy of Left Lower Extremity Arteries using Low Osmolar Contrast (ICD-10-PCS; 2020-08-14 11:00)
DX: I08.0 Rheumatic disorders of both mitral and aortic valves (principal); Z68.41 Body mass index [BMI] 40.0-44.9, adult; I44.2 Atrioventricular block, complete; I50.32 Chronic diastolic (congestive) heart failure; F03.90 Unspecified dementia, unspecified severity, without behavioral disturbance, psychotic disturbance, mood disturbance, and anxiety; I11.0 Hypertensive heart disease with heart failure; J44.9 Chronic obstructive pulmonary disease, unspecified; Z00.6 Encounter for examination for normal comparison and control in clinical research program; E66.9 Obesity, unspecified; Z20.822 Contact with and (suspected) exposure to COVID-19; I25.82 Chronic total occlusion of coronary artery; I25.10 Atherosclerotic heart disease of native coronary artery without angina pectoris; E78.5 Hyperlipidemia, unspecified; G47.33 Obstructive sleep apnea (adult) (pediatric); G47.419 Narcolepsy without cataplexy; K21.9 Gastro-esophageal reflux disease without esophagitis; G89.29 Other chronic pain; M54.9 Dorsalgia, unspecified; I83.90 Asymptomatic varicose veins of unspecified lower extremity; H91.90 Unspecified hearing loss, unspecified ear; F81.9 Developmental disorder of scholastic skills, unspecified; I25.2 Old myocardial infarction; R91.8 Other nonspecific abnormal finding of lung field; M19.90 Unspecified osteoarthritis, unspecified site; Z79.82 Long term (current) use of aspirin; Z79.51 Long term (current) use of inhaled steroids; Z79.899 Other long term (current) drug therapy; Z95.1 Presence of aortocoronary bypass graft; Z87.891 Personal history of nicotine dependence; Z95.5 Presence of coronary angioplasty implant and graft; Z90.89 Acquired absence of other organs; Z96.651 Presence of right artificial knee joint; Z98.42 Cataract extraction status, left eye; Z98.41 Cataract extraction status, right eye; Z87.01 Personal history of pneumonia (recurrent); Z96.611 Presence of right artificial shoulder joint; Z98.890 Other specified postprocedural states; Z71.3 Dietary counseling and surveillance; Z91.030 Bee allergy status; Z91.013 Allergy to seafood; Z82.49 Family history of ischemic heart disease and other diseases of the circulatory system; Z80.41 Family history of malignant neoplasm of ovary
CPT/HCPCS: 33361; 36415; 71045; 80053; 82330; 82805; 83735; 85025; 85520; 85610; 85730; 86850; 86870; 86880; 86891; 86900; 86901; 86902; 87635; 93308; 93312; 93320; 93325; 94640; 94660

== ENCOUNTER → 2020-09-20 | Outpatient (CLI) | payer MEDICARE ==
[2020-09-20 22:58] LABS: Basophils # (A) 0.06 X 10*3/uL (0.00-0.10); Basophils % (A) 0.9 %; Eosinophils # (A) 0.33 X 10*3/uL (0.04-0.35); Eosinophils % (A) 4.7 %; HCT 42.8 % (39.6-50.0); HGB 13.7 g/dL (13.0-17.0); Lymphocytes # (A) 1.79 X 10*3/uL (0.90-5.00); Lymphocytes % (A) 25.8 %; MCH 31.6 pg (27.0-32.0); MCV 98.6 fL (80.0-97.0); Mean Platelet Volume 10.5 fL (9.5-12.2); Monocytes # (A) 0.57 X 10*3/uL (0.20-1.00); Monocytes % (A) 8.2 %; Neutrophils # (A) 4.18 X 10*3/uL (1.80-7.70); Neutrophils % (A) 60.1 %; Platelet Count 152 X 10*3/uL (140-440); RBC 4.34 X 10*6/uL (4.40-5.60); WBC 6.95 X 10*3/uL (4.50-10.00)
[2020-09-21 03:25] LABS: African American GFR (CKD) 86.8 (60.0-200.0); Anion Gap 8.4 mmol/L (4.00-12.00); Calcium 9.3 mg/dL (8.7-10.3); Carbon Dioxide 17.6 mmol/L (21.6-31.8); Non-African American GFR(CKD) 74.9 (60.0-200.0); Potassium 4.3 mmol/L (3.5-5.5)
== END | disposition home or self-care (01) ==
LOC: LABWHC1 14:18
PROVIDERS: ATTEND Nurse Practitioner Acute Care
DX: Z95.4 Presence of other heart-valve replacement (principal)
CPT/HCPCS: 36415; 80048; 85025

== ENCOUNTER 2020-11-29 18:54 | Inpatient (IN) | payer MEDICARE ==
[2020-11-29] MEDS ORDERED: SODIUM CHLORIDE 0.9% 1,000 ML IV STA (19:16)
--- NOTE | 2020-11-29 19:20 | ED ---
General Adult HPI - General Chief complaint: Syncope Stated complaint: syncope Time Seen by Provider: 11/29/20 19:05 Source: patient, family, RN notes reviewed Mode of arrival: ambulatory Limitations: no limitations - History of Present Illness Initial comments: Patient is a pleasant 70-year-old male presenting to the emergency department following a near syncopal episode. Episode occurred at the park after eating. Patient was sitting down and almost passed out. Patient and family both state that he became extremely close to passing out however never completely lost consciousness. Patient had no injury. reports that patient did have a si milar episode yesterday that was unwitnessed. Patient is unclear if he may have had a syncopal episode or near syncopal episode at that point. No chest pain or dyspnea. No confusion. No weakness. Patient did feel lightheaded and that has essentially resolved at this time. - Related Data Home Medications Medication Instructions Recorded Confirmed Aspirin EC [Ecotrin Low Dose] 81 mg PO DAILY 03/23/16 11/29/20 Escitalopram [Lexapro] 10 mg PO DAILY 03/23/16 11/29/20 Montelukast [Singulair] 10 mg PO HS 03/23/16 11/29/20 Simvastatin [Zocor] 40 mg PO HS 03/23/16 11/29/20 Topiramate [Topamax] 100 mg PO BID 03/23/16 11/29/20 atenoloL [Tenormin] 12.5 mg PO DAILY 10/12/16 11/29/20 Hydrocodone/Acetaminophen [Vicodin 1 tab PO TID PRN 06/24/20 11/29/20 ES 7.5-300 mg] Losartan [Cozaar] 50 mg PO DAILY 06/24/20 11/29/20 Memantine HCl 10 mg PO BID 06/24/20 11/29/20 Fluticasone/Vilanterol [Breo 1 puff INHALATION RT-DAILY 11/29/20 11/29/20 Ellipta 100-25 Mcg Inhaler] Loratadine [Claritin] 10 mg PO HS 11/29/20 11/29/20 modafiniL [Provigil] 100 mg PO BID 11/29/20 11/29/20 Previous Rx's Medication Instructions Recorded Clopidogrel [Plavix] 75 mg PO DAILY #30 tab 08/15/20 Allergies Allergy/AdvReac Type Severity Reaction Status Date / Time bee pollen Allergy Anaphylaxis Verified 11/29/20 21:20 shrimp Allergy Anaphylaxis Verified 11/29/20 21:20 Review of Systems ROS Statement: Those systems with pertinent positive or pertinent negative responses have been documented in the HPI. ROS Other: All systems not noted in ROS Statement are negative. Constitutional: Denies: fever Eyes: Denies: eye pain ENT: Denies: ear pain Respiratory: Denies: cough Cardiovascular: Denies: chest pain Endocrine: Denies: fatigue Gastrointestinal: Denies: abdominal pain, vomiting Genitourinary: Denies: dysuria Musculoskeletal: Denies: back pain Skin: Denies: rash Neurological: Denies: weakness Past Medical History Past Medical History: Chest Pain / Angina, Heart Failure, COPD, Dementia, KAR D/Reflux, Hyperlipidemia, Hypertension, Memory Impairment, Musculoskeletal Disorder, Osteoarthritis (OA), Pneumonia, Sleep Apnea/CPAP/BIPAP Additional Past Medical History / Comment(s): Narcolepsy, uses CPAP, Lumbar Degenarative Disc Disease, bulging discs, chronic back pain, varicose veins, sinus problems, 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 Short term memory issues, beginnings of Dementia. "has learning disability, does not read." History of Any Multi-Drug Resistant Organisms: None Reported Past Surgical History: Adenoidectomy, Coronary Bypass/CABG, Heart Catheterization With Stent, Joint Replacement, Orthopedic Surgery, Tonsillectomy Additional Past Surgical History / Comment(s): Double bypass, "post op wires came apart, went septic and had I&D of sternum. Bilateral cataract surgery, pain clinic procedures(radio freqquency ablation), right knee arthroscopy, right knee replacment, right shoulder arthroscopy, right shoulder replacment. Valve replacment Past Anesthesia/Blood Transfusion Reactions: No Reported Reaction Date of Last Stent Placement:: 2004 Past Psychological History: Depression Smoking Status: Former smoker Past Alcohol Use History: Rare Past Drug Use History: None Reported - Past Family History Father Family Medical History: Coronary Artery Disease (CAD) Additional Family Medical History / Comment(s): heart problems Mother Family Medical History: Cancer Additional Family Medical History / Comment(s): Ovarian cancer. General Exam Limitations: no limitations General appearance: alert, in no apparent distress Head exam: Present: atraumatic, normocephalic Eye exam: Present: normal appearance, PERRL, EOMI. Absent: nystagmus ENT exam: Present: normal oropharynx, other (Uvula is absent) Neck exam: Present: normal inspection Respiratory exam: Present: normal lung sounds bilaterally Cardiovascular Exam: Present: regular rate, normal rhythm GI/Abdominal exam: Present: soft. Absent: tenderness Extremities exam: Present: normal inspection Neurological exam: Present: alert, CN II-XII intact. Absent: motor sensory deficit Expanded Neurological exam: Present: protecting the airway, other (Not oriented to year which states is normal and patient agrees.) Patient oriented to: Present: person, place Cranial nerves: EOM's Intact: Normal, Facial Sensation: Normal Cerebellar function: Finger to Nose: Normal Sensory exam: Upper Extremity Light Touch: Normal, Lower Extremity Light Touch: Normal Motor strength exam: RUE: 5, LUE: 5, RLE: 5, LLE: 5 Eye Response: (4) open spontaneously Motor Response: (6) obeys commands Verbal Response: (5) oriented Psychiatric exam: Present: normal affect, normal mood Skin exam: Present: normal color Course Vital Signs 11/29/20 11/29/20 18:56 19:43 Temperature 97.6 F Pulse Rate 60 61 Respiratory 18 20 Rate Blood Pressure 129/58 177/68 O2 Sat by Pulse 98 96 Oximetry - Reevaluation(s) Reevaluation #1: 11/29/20 22:23 Patient earlier had a syncopal versus near-syncopal episode emergency department. While on the monitor patient started not feeling well and became bradycardiac. Heart rate in the 30s. Monitor concerning for heart block. Patient did have a pause lasting between 7 and 9 seconds. CPR was about to be initiated when pulse returned. Patient was given 1 of atropine. Patient started on dopamine. Other than that episode blood pressure has remained steady. Case was with cardiology Dr. Romano. He will come in scientific research associate for temporary pacemaker. He recommends continuing dopamine at 5. He does want atropine at bedside and call if any concerns or worsening condition. He would like patient to go to the intensive care unit. Case was also discussed earlier with Dr. Mason, who will admit covering Dr. Umana. 11/29/20 22:26 Case also discussed with Dr. Garcia, who will consult for critical care. Family is updated. 11/29/20 22:26 EKG #2 shows AV dissociation with bradycardia, rate 30. QRS 180. QT 504. QTC 356. Normal axis. Left bundle branch block. No acute ST change. EKG #3 shows apparent sinus rhythm that converts to asystole. QRS 176. QT 454. QTC 533. Normal axis. Left bundle branch block. No acute ST change. EKG #4 shows AV dissociation with a rate of 41. QRS 166. QTc 556. QTc were 5 8. Normal axis. Normal QRS. No acute ST change. EKG Findings - EKG Comments: EKG Findings:: Sinus rhythm with a rate of 61. For screening AV block SC 220. QRS 170. QT 476. QTc 479. Normal axis. Left bundle rash block. No acute ST change. Medical Decision Making - Lab Data Result diagrams: 11/29/20 19:21 11/29/20 19:21 Lab Results 11/29/20 11/29/20 11/29/20 Range/Units 19:21 19:21 19:21 WBC 7.5 (3.8-10.6) k/uL RBC 4.30 (4.30-5.90) m/uL Hgb 13.7 (13.0-17.5) gm/dL Hct 43.0 (39.0-53.0) % MCV 100.0 (80.0-100.0) fL MCH 31.7 (25.0-35.0) pg MCHC 31.8 (31.0-37.0) g/dL RDW 12.8 (11.5-15.5) % Plt Count 154 (150-450) k/uL MPV 7.5 Neutrophils % 64 % Lymphocytes % 22 % Monocytes % 7 % Eosinophils % 4 % Basophils % 1 % Neutrophils # 4.8 (1.3-7.7) k/uL Lymphocytes # 1.6 (1.0-4.8) k/uL Monocytes # 0.6 (0-1.0) k/uL Eosinophils # 0.3 (0-0.7) k/uL Basophils # 0.1 (0-0.2) k/uL PT 10.7 (9.0-12.0) sec INR 1.0 (<1.2) APTT 23.3 (22.0-30.0) sec D-Dimer 1.53 H (<0.60) mg/L FEU Sodium (137-145) mmol/L Potassium (3.5-5.1) mmol/L Chloride (98-107) mmol/L Carbon Dioxide (22-30) mmol/L Anion Gap mmol/L BUN (9-20) mg/dL Creatinine (0.66-1.25) mg/dL Est GFR (CKD-EPI)AfAm (>60 ml/min/1.73 sqM) Est GFR (CKD-EPI)NonAf (>60 ml/min/1.73 sqM) Glucose (74-99) mg/dL Calcium (8.4-10.2) mg/dL Magnesium (1.6-2.3) mg/dL Total Bilirubin (0.2-1.3) mg/dL AST (17-59) U/L ALT (4-49) U/L Alkaline Phosphatase (38-126) U/L Troponin I (0.000-0.034) ng/mL Total Protein (6.3-8.2) g/dL Albumin (3.5-5.0) g/dL Urine Color Yellow Urine Appearance Clear (Clear) Urine pH 5.5 (5.0-8.0) Ur Specific [place] 1.026 (1.001-1.035) Urine Protein Trace H (Negative) Urine Glucose (UA) Negative (Negative) Urine Ketones Negative (Negative) Urine Blood Negative (Negative) Urine Nitrite Negative (Negative) Urine Bilirubin Negative (Negative) Urine Urobilinogen <2.0 (<2.0) mg/dL Ur Leukocyte Esterase Negative (Negative) 11/29/20 11/29/20 Range/Units 19:21 19:21 WBC (3.8-10.6) k/uL RBC (4.30-5.90) m/uL Hgb (13.0-17.5) gm/dL Hct (39.0-53.0) % MCV (80.0-100.0) fL MCH (25.0-35.0) pg MCHC (31.0-37.0) g/dL RDW (11.5-15.5) % Plt Count (150-450) k/uL MPV Neutrophils % % Lymphocytes % % Monocytes % % Eosinophils % % Basophils % % Neutrophils # (1.3-7.7) k/uL Lymphocytes # (1.0-4.8) k/uL Monocytes # (0-1.0) k/uL Eosinophils # (0-0.7) k/uL Basophils # (0-0.2) k/uL PT (9.0-12.0) sec INR (<1.2) APTT (22.0-30.0) sec D-Dimer (<0.60) mg/L FEU Sodium 139 (137-145) mmol/L Potassium 3.9 (3.5-5.1) mmol/L Chloride 112 H (98-107) mmol/L Carbon Dioxide 19 L (22-30) mmol/L Anion Gap 8 mmol/L BUN 26 H (9-20) mg/dL Creatinine 0.94 (0.66-1.25) mg/dL Est GFR (CKD-EPI)AfAm >90 (>60 ml/min/1.73 sqM) Est GFR (CKD-EPI)NonAf 81 (>60 ml/min/1.73 sqM) Glucose 94 (74-99) mg/dL Calcium 9.5 (8.4-10.2) mg/dL Magnesium 1.9 (1.6-2.3) mg/dL Total Bilirubin 0.4 (0.2-1.3) mg/dL AST 32 (17-59) U/L ALT 18 (4-49) U/L Alkaline Phosphatase 91 (38-126) U/L Troponin I 0.016 (0.000-0.034) ng/mL Total Protein 7.0 (6.3-8.2) g/dL Albumin 3.8 (3.5-5.0) g/dL Urine Color Urine Appearance (Clear) Urine pH (5.0-8.0) Ur Specific [place] (1.001-1.035) Urine Protein (Negative) Urine Glucose (UA) (Negative) Urine Ketones (Negative) Urine Blood (Negative) Urine Nitrite (Negative) Urine Bilirubin (Negative) Urine Urobilinogen (<2.0) mg/dL Ur Leukocyte Esterase (Negative) Critical Care Time Critical Care Time: Yes Total Critical Care Time: 44 Disposition Clinical Impression: Syncope and collapse, Third degree heart block Disposition: ADMITTED IP TO THIS [facility] Condition: Critical Is patient prescribed a controlled substance at d/c from ED?: No Referrals: Mine Palacio DO [Primary Care Provider] - 1-2 days Decision Time: 22:29
[2020-11-29 19:58] LABS: Basophils # (A) 0.1 k/uL (0-0.2); Basophils % (A) 1 %; Eosinophils # (A) 0.3 k/uL (0-0.7); Eosinophils % (A) 4 %; HGB 13.7 gm/dL (13.0-17.5); Lymphocytes # (A) 1.6 k/uL (1.0-4.8); Lymphocytes % (A) 22 %; MCH 31.7 pg (25.0-35.0); MCHC 31.8 g/dL (31.0-37.0); Mean Platelet Volume 7.5; Monocytes # (A) 0.6 k/uL (0-1.0); Monocytes % (A) 7 %; Neutrophils # (A) 4.8 k/uL (1.3-7.7); Neutrophils % (A) 64 %; Platelet Count 154 k/uL (150-450); RDW 12.8 % (11.5-15.5); WBC 7.5 k/uL (3.8-10.6)
[2020-11-29 20:09] LABS: ALT 18 U/L (4-49); AST 32 U/L (17-59); African American GFR (CKD) >90 (>60 ml/min/1.73 sqM); Albumin 3.8 g/dL (3.5-5.0); Alkaline Phosphatase 91 U/L (38-126); Anion Gap 8 mmol/L; Blood Urea Nitrogen 26 mg/dL (9-20); Calcium 9.5 mg/dL (8.4-10.2); Carbon Dioxide 19 mmol/L (22-30); Chloride 112 mmol/L (98-107); Glucose 94 mg/dL (74-99); Magnesium 1.9 mg/dL (1.6-2.3); Non-African American GFR(CKD) 81 (>60 ml/min/1.73 sqM); Potassium 3.9 mmol/L (3.5-5.1); Sodium 139 mmol/L (137-145); Total Bilirubin 0.4 mg/dL (0.2-1.3)
[2020-11-29 20:12] LABS: Partial Thromboplastin Time 23.3 sec (22.0-30.0); Prothrombin Time 10.7 sec (9.0-12.0)
--- NOTE | 2020-11-29 20:25 | CT ---
EXAMINATION TYPE: CT brain wo con DATE OF EXAM: 11/29/2020 COMPARISON: 03/23/2016 HISTORY: ams, syncope CT DLP: 1153.4 mGycm Automated exposure control for dose reduction was used. There is mild cerebral atrophy. There is no mass effect nor midline shift. There is no sign of intrac ranial hemorrhage. Calvarium is intact. There is normal aeration of the mastoid sinuses. There is mucosal thickening in the right maxillary sinus. IMPRESSION: Cerebral atrophy. No acute intracranial abnormality. There is improvement in the sinusitis compared t o old exam.
[2020-11-29 20:43] LABS: Appearance,Urine Clear (Clear); Bilirubin,Urine Negative (Negative); Blood,Urine Negative (Negative); Color,Urine Yellow; Glucose,Urine (UA) Negative (Negative); Ketones,Urine Negative (Negative); Leukocyte Esterase,Urine Negative (Negative); Nitrite,Urine Negative (Negative); PH, Urine 5.5 (5.0-8.0); Protein,Urine Trace (Negative); Specific Gravity,Urine 1.026 (1.001-1.035); Urobilinogen,Urine <2.0 mg/dL (<2.0)
[2020-11-29] MEDS ORDERED: FAMOTIDINE 20 MG/2 ML VIAL IV STA (20:53)
[2020-11-29] MEDS ORDERED: diphenhydrAMINE 50 MG/ML 1 ML VIAL IVP STA (20:53)
[2020-11-29] MEDS ORDERED: methylPREDNISolone SOD SUCCI 125 MG/2 ML VIAL IV STA (20:53)
--- NOTE | 2020-11-29 21:26 | XR ---
EXAMINATION TYPE: XR chest 1V portable DATE OF EXAM: 11/29/2020 COMPARISON: 08/15/2020 HISTORY: Syncope TECHNIQUE: FINDINGS: There is no heart failure nor confluent pneumonic infiltrate. Costophrenic angles are clear . There are sternal wires. There is right shoulder prosthesis. IMPRESSION: No active cardiopulmonary disease. No adverse change. There is clearing of the mild atele ctasis left lung base compared to old exam.
--- NOTE | 2020-11-29 21:55 | CT ---
EXAMINATION TYPE: CT angio chest DATE OF EXAM: 11/29/2020 COMPARISON: 08/14/2016 HISTORY: elevated d-dimer CT DLP: 1016.7 mGycm Automated exposure control for dose reduction was used. CONTRAST: Performed with IV Contrast, patient injected with 100 mL of Isovue 370. Our 3-D post processed images. Images obtained from the thoracic inlet to the diaphragm with IV contrast. Lungs are clear of consolidation. There is no pleural effusion. Heart is enlarged. There is no pleura l effusion. There is no mediastinal adenopathy. There are no hilar masses. There is normal contrast opacification of the pulmonary arteries. There are no filling defects. There is mild subsegmental atelectasis at t he posterior lung bases. The upper abdominal soft tissues are intact. There is no evidence of thoracic aortic aneurysm or diss ection. There is aortic valve surgery. There is degenerative spurring throughout the thoracic spine. There is no significant compression fracture. Sternum is intact. IMPRESSION: No evidence of pulmonary embolism. Mild interstitial infiltrate at the lung bases. Cardiomegaly.
[2020-11-29] MEDS ORDERED: ATROPINE SULFATE 0.1 MG/ML 10ML SYRINGE IV STA ×2 (22:02)
[2020-11-29] MEDS ORDERED: DOPamine DRIP 800 MG in DEXTROSE/WATER 1 250ML.BAG IV ONE (22:04)
[2020-11-29] MEDS ORDERED: NALOXONE 0.4 MG/ML 1 ML VIAL IV PRN (22:29)
[2020-11-29] MEDS ORDERED: SODIUM CHLORIDE 0.9% 1,000 ML IV SCH (22:30)
[2020-11-30 01:33] LABS: Glucose,Whole Blood 124 mg/dL (75-99)
[2020-11-30] MEDS ORDERED: ISOPROTERENOL 1,000 MCG in DEXTROSE 5% IN WATER 250 ML IV SCH ×2 (03:45)
[2020-11-30] MEDS ORDERED: LIDOCAINE 1% INJ 10MG/ML (20 ML MDV) ONE ×2 (04:37→14:18)
[2020-11-30] MEDS ORDERED: IV FLUID CONTINUATION 1,000 ML IV ONE ×2 (04:40→13:55)
[2020-11-30] MEDS ORDERED: LIDOCAINE 1% INJ 10MG/ML (20 ML MDV) SQ ONE ×2 (04:48→14:26)
[2020-11-30] MEDS ORDERED: ACETAMINOPHEN TAB 325 MG TAB PO PRN ×2 (05:00→16:08)
[2020-11-30] MEDS: SODIUM CHLORIDE 0.9% 1,000 ML IV SCH (06:00)
[2020-11-30] MEDS ORDERED: DOPamine DRIP 800 MG in DEXTROSE/WATER 1 250ML.BAG IV ONE (06:15)
[2020-11-30 06:30] LABS: Basophils % (A) 0 %; Eosinophils % (A) 0 %; HCT 45.1 % (39.0-53.0); HGB 14.3 gm/dL (13.0-17.5); Lymphocytes # (A) 0.8 k/uL (1.0-4.8); Lymphocytes % (A) 7 %; MCHC 31.7 g/dL (31.0-37.0); MCV 101.1 fL (80.0-100.0); Mean Platelet Volume 7.5; Monocytes # (A) 0.3 k/uL (0-1.0); Monocytes % (A) 2 %; Neutrophils # (A) 9.9 k/uL (1.3-7.7); Neutrophils % (A) 90 %; Platelet Count 153 k/uL (150-450); RBC 4.47 m/uL (4.30-5.90); RDW 12.8 % (11.5-15.5); WBC 10.9 k/uL (3.8-10.6)
[2020-11-30 06:48] LABS: ALT 33 U/L (4-49); AST 43 U/L (17-59); African American GFR (CKD) >90 (>60 ml/min/1.73 sqM); Albumin 3.8 g/dL (3.5-5.0); Alkaline Phosphatase 98 U/L (38-126); Anion Gap 11 mmol/L; Blood Urea Nitrogen 28 mg/dL (9-20); Calcium 9.7 mg/dL (8.4-10.2); Carbon Dioxide 16 mmol/L (22-30); Chloride 112 mmol/L (98-107); Glucose 155 mg/dL (74-99); Magnesium 1.8 mg/dL (1.6-2.3); Non-African American GFR(CKD) 82 (>60 ml/min/1.73 sqM); Phosphorus 3.2 mg/dL (2.5-4.5); Potassium 3.9 mmol/L (3.5-5.1); Sodium 139 mmol/L (137-145); Total Bilirubin 0.5 mg/dL (0.2-1.3); Total Protein 7.1 g/dL (6.3-8.2)
--- NOTE | 2020-11-30 06:54 | CONS ---
CONSULTATION HISTORY OF PRESENT ILLNESS: This is a 70-year-old gentleman with a known history of obstructive sleep apnea on a CPAP, CAD with a prior myocardial infarction, PCI and aortocoronary bypass surgery. In July of this year because of severe aortic stenosis, he underwent aortic valve implant by percutaneous approach. He came into the hospital with 2 episodes of near syncope, had documented syncope in the ER with 8 second pause, was placed on a dopamine drip and sent up to the ICU. In the ICU, he continued to have heart rates in the mid to high 30s. I was contacted around 3:30 am indicating that his heart rate seems to be going lower. Therefore I came into see him and advised a temporary pacemaker to be performed from the right femoral approach and we will proceed with a permanent pacemaker after that. I came in to see the patient. He was alert, awake, responding to questions, was able to give me a decent history about what happened in the emergency room. He is on a beta poornima in the form of Tenormin 12.5 mg daily. He also has underlying wide QRS with IVCD type picture. He is resting comfortably without symptoms. PAST MEDICAL HISTORY: 1. Coronary artery disease with a prior AR and PCI in 2004 followed by aortocoronary bypass surgery with the BECERRA to LAD and vein graft to the diagonal. 2. Status post percutaneous aortic valve replacement performed in July of this year. 3. Obesity. 4. Obstructive sleep apnea, wears CPAP. 5. Hypertension. ALLERGIES: No known drug allergy. MEDICATIONS: These include Provigil 100 mg b.i.d., Tenormin 12.5 mg daily, Topamax 100 mg b.i.d., simvastatin 40 mg daily, Singulair 10 mg daily, Cozaar 50 mg daily. He also takes inhaler in the form of Breo Ellipta. He takes Plavix 75 mg daily and aspirin 81 mg daily. PHYSICAL EXAMINATION: On examination, blood pressure is 134/70, pulse rate is about 41 per minute. HEENT unremarkable. Fundus was not examined by me. Neck is supple. No JVD. I do not hear a carotid bruit. HEART exam reveals S1, S2 with ejection systolic murmur at the base. Second heart sound is well preserved. LUNGS are clear. ABDOMEN is soft, nontender. Lower EXTREMITIES reveal palpable pulses. No edema. CENTRAL NERVOUS SYSTEM is normal. EKG revealed a sinus mechanism with a complete heart block and a ventricular rate of about 41 beats per minute. There is underlying right bundle branch block noted. IMPRESSION: 1. Complete heart block with syncope with underlying conduction system disease. 2. Coronary artery disease with prior bypass surgery and PCI. 3. He is status post aortic valve replacement by percutaneous approach in July of this year. 4. Obstructive sleep apnea. 5. Hypertension. 6. Hyperlipidemia. RECOMMENDATIONS: I am recommending a temporary transvenous pacemaker from right femoral venous approach today and around 1:00 pm I will perform a permanent pacemaker which will be a dual- chamber device. Discussed my thoughts in detail with the patient. His was also contacted and consent was obtained from her as well. We will proceed with temporary pacemaker JASMINA. SAMIR / LOUISE: [id number] /
--- NOTE | 2020-11-30 06:54 | PCN ---
PROCEDURE NOTE DATE OF SERVICE: 11/30/2020. PROCEDURE: Transvenous temporary pacemaker placement from the right femoral venous approach. SEDATION: Moderate conscious sedation time was 21 minutes. The patient was already sedated in the ICU. His EKG, vital signs and oxygen saturation were monitored closely. INDICATION: This patient presented to the hospital with syncope, had long 8 second pause with a complete heart block. He was placed on Isuprel and dopamine drip, brought in for the procedure. Heart rate was 42 beats per minute. PROCEDURE NOTE: Under local anesthesia and strict aseptic precautions, a 6-Eritrean introducer was placed in the right femoral vein. Under fluoroscopy, a balloon tip 5-Eritrean pacemaker was advanced and positioned in the right ventricular apex. The threshold was 0.2 mV. Good capture was achieved. Pacemaker was set up at a backup rate of 35 with a mA of 5.0. His underlying rhythm was still complete heart block with a ventricular rate of 42 beats per minute. He was sent back to the ICU with Isuprel drip at 1 mcg and dopamine drip at 4 mcg. The patient will have a permanent pacemaker at 1:30 pm today. The rationale, risks, benefits, options explained. Patient and understand and wish to proceed with the procedure. MMODL / IJN: [id number] /
[2020-11-30] MEDS ORDERED: ceFAZolin 1 GM in SODIUM CHLORIDE 0.9% 250 ML IRRIGATION PRN (07:00)
[2020-11-30] MEDS ORDERED: HYDROcodone/APAP 5-325MG 1 EACH TAB PO PRN (08:03)
--- NOTE | 2020-11-30 08:20 | P.CNPUL ---
History of Present Illness Consult date: 11/30/20 Chief complaint: Third-degree AV block and syncope History of present illness: 70-year-old male patient is currently post TAVR procedure, done in July 2020, presented to the hospital because of presyncope and syncope. Immediately, the patient was identified to be in third-degree AV block. Please refer to the details of the hospital presentation as the patient was having near syncopal episodes and he was not losing consciousness. Here in the hospital, he had a syncopal episode upon arrival. He had a trauma to his head. CAT scan of the brain was negative. CT angios the chest was negative. Note that his initial procedure was done back in July 2020 for severe aortic stenosis. He is known to have also coronary artery disease and he has undergone previous two-vessel bypass surgery. Cardiology attended on this patient immediately. The patient was given a temporary pacemaker and his current rhythm is third-degree AV block with a backup rate of 35. He is on a combination of isoproterenol infusion and dopamine infusion. He is resting comfortably in bed. He is hemodynamically stable. Current blood pressure is 131/48. The plan is to proceed with a permanent pacemaker insertion today. He is afebrile. No signs of any infection with septicemia. No chest pain. No angina. No palpitation. Was a dose of 10.9. His coagulation profile is within normal limits. He does have a component of non-anion gap metabolic acidosis and his bicarb drip/deficits will be corrected. Creatinine stable at 0.9. Chest x-ray was essentially within normal limits. CT angiogram was also negative. He has no specific complaints. He is known to have an FEV1 of 88% of predicted. He has also obstructive sleep apnea and his CPAP machine will be brought from home. He has hypertension and hyperlipidemia as comorbid conditions. He has also chronic back pain for which she takes [place] and this will be restarted obviously. Review of Systems Constitutional: Denies chills, Denies fever Eyes: denies blurred vision, denies pain Ears, nose, mouth and throat: Denies headache, Denies sore throat Cardiovascular: Denies chest pain, Denies shortness of breath, third-degree AV block as mentioned above Respiratory: Reports dyspnea, Denies cough Gastrointestinal: Denies abdominal pain, Denies diarrhea, Denies nausea, Denies vomiting Musculoskeletal: Denies myalgias Integumentary: Denies pruritus, Denies rash Neurological: Denies numbness, Denies weakness, syncope and presyncope Psychiatric: Denies anxiety, Denies depression Endocrine: Denies fatigue, Denies weight change Past Medical History Past Medical History: Chest Pain / Angina, Heart Failure, COPD, Dementia, Deep Vein Thrombosis (DVT), Eye Disorder, GERD/Reflux, Hyperlipidemia, Hypertension, Memory Impairment, Musculoskeletal Disorder, Osteoarthritis (OA), Pneumonia, Sleep Apnea/CPAP/BIPAP Additional Past Medical History / Comment(s): Narcolepsy, uses CPAP, Lumbar Degenarative Disc Disease, bulging discs, chronic back pain, varicose veins, sinus problems, 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 Short term memory issues, beginnings of Dementia. "has learning disability, does not read." History of Any Multi-Drug Resistant Organisms: None Reported Past Surgical History: Adenoidectomy, Coronary Bypass/CABG, Heart Catheterization With Stent, Joint Replacement, Orthopedic Surgery, Tonsillectomy Additional Past Surgical History / Comment(s): Double bypass, "post op wires came apart, went septic and had I&D of sternum. Bilateral cataract surgery, pain clinic procedures(radio frequency ablation), right knee arthroscopy, right knee replacment, right shoulder arthroscopy, right shoulder replacment. Valve replacment Past Anesthesia/Blood Transfusion Reactions: No Reported Reaction Date of Last Stent Placement:: 2004 Past Psychological History: Depression Smoking Status: Former smoker Past Alcohol Use History: Rare Additional Past Alcohol Use History / Comment(s): Smoked for >30 years, 2 ppd, quit in 1990. Past Drug Use History: None Reported Additional Drug Use History / Comment(s): Drinks about 2 beers/week - Past Family History Father Family Medical History: Coronary Artery Disease (CAD) Additional Family Medical History / Comment(s): heart problems Mother Family Medical History: Cancer Additional Family Medical History / Comment(s): Ovarian cancer. Medications and Allergies Home Medications Medication Instructions Recorded Confirmed Type Aspirin EC [Ecotrin Low Dose] 81 mg PO DAILY 03/23/16 11/29/20 History Escitalopram [Lexapro] 10 mg PO DAILY 03/23/16 11/29/20 History Montelukast [Singulair] 10 mg PO HS 03/23/16 11/29/20 History Simvastatin [Zocor] 40 mg PO HS 03/23/16 11/29/20 History Topiramate [Topamax] 100 mg PO BID 03/23/16 11/29/20 History atenoloL [Tenormin] 12.5 mg PO DAILY 10/12/16 11/29/20 History Hydrocodone/Acetaminophen [Vicodin 1 tab PO TID PRN 06/24/20 11/29/20 History ES 7.5-300 mg] Losartan [Cozaar] 50 mg PO DAILY 06/24/20 11/29/20 History Memantine HCl 10 mg PO BID 06/24/20 11/29/20 History Clopidogrel [Plavix] 75 mg PO DAILY #30 tab 08/15/20 11/29/20 Rx Fluticasone/Vilanterol [Breo 1 puff INHALATION RT-DAILY 11/29/20 11/29/20 History Ellipta 100-25 Mcg Inhaler] Loratadine [Claritin] 10 mg PO HS 11/29/20 11/29/20 History modafiniL [Provigil] 100 mg PO BID 11/29/20 11/29/20 History Allergies Allergy/AdvReac Type Severity Reaction Status Date / Time bee pollen Allergy Anaphylaxis Verified 11/29/20 21:20 shrimp Allergy Anaphylaxis Verified 11/29/20 21:20 Physical Exam Vitals: Vital Signs Temp Pulse Resp BP Pulse Ox 11/30/20 07:12 94 L 11/30/20 06:00 42 L 14 131/48 94 L 11/30/20 05:00 41 L 16 132/52 94 L 11/30/20 04:00 40 L 18 153/64 93 L 11/30/20 03:00 38 L 12 155/63 91 L 11/30/20 02:00 38 L 15 161/72 94 L 11/30/20 01:25 38 L 18 134/60 93 L 11/30/20 01:00 36 L 20 128/54 90 L 11/30/20 00:30 36 L 18 108/53 95 11/30/20 00:00 36 L 18 141/115 91 L 11/29/20 23:32 39 L 14 137/71 11/29/20 23:02 39 L 144/68 92 L 11/29/20 23:00 39 L 20 151/65 94 L 11/29/20 22:45 42 L 20 151/65 90 L 11/29/20 22:30 42 L 20 136/69 92 L 11/29/20 22:15 40 L 20 136/69 97 11/29/20 22:00 30 L 20 136/91 94 L 11/29/20 21:45 80 20 133/90 98 11/29/20 21:30 20 147/74 96 11/29/20 21:15 74 20 131/66 98 11/29/20 21:00 64 20 119/69 98 11/29/20 20:45 66 20 127/65 98 11/29/20 20:30 67 20 119/67 97 11/29/20 20:15 65 20 123/70 98 11/29/20 20:00 76 20 133/69 97 11/29/20 19:43 61 20 177/68 96 11/29/20 18:56 97.6 F 60 18 129/58 98 Intake and Output 11/29/20 11/30/20 11/30/20 22:59 06:59 14:59 Intake Total 655.618 59.415 Output Total 985 Balance -329.382 59.415 Intake: IV 540 0.9 NaCl- 490 Intake, IV Titration 115.618 59.415 Amount DOPamine DRIP 800 mg In 115.618 Dextrose/Water 1 250ml. bag @ 5 MCG/KG/MIN 12.119 mls/hr IV .[id number] ONE Rx#:[id number] Isoproterenol 1,000 mcg 59.415 In Dextrose 5% in Water 250 ml @ Per Protocol IV .Q0M [facility] Rx#:[id number] Output: Urine 985 Other: Weight 129.274 kg 132.9 kg Gen. appearance the patient is calm and comfortable resting comfortably and breathing is nonlabored. Head exam was generally normal. There was no scleral icterus or corneal arcus. Mucous membranes were moist. Neck was supple and without jugular venous distension, thyromegaly, or carotid bruits. Carotids were easily palpable bilaterally. There was no adenopathy. Lungs were clear to auscultation and percussion, and with normal diaphragmatic excursion. No wheezes or rales were noted. Heart sounds are bradycardic and there is a systolic ejection murmur grade 2/6 heard over the precordium Examination of the extremities revealed easily palpable radial, femoral and pedal pulses. There was no cyanosis, clubbing or edema. Abdominal exam revealed normal bowel sounds. The abdomen was soft, non-tender, and without masses, organomegaly, or appreciable enlargement of the abdominal aorta. Examination of the skin revealed no evidence of significant rashes, suspicious appearing nevi or other concerning lesions. Head exam was generally normal. There was no scleral icterus or corneal arcus. Mucous membranes were moist. Results - Laboratory Findings CBC and BMP: 11/30/20 05:47 11/30/20 05:47 ABG WBC 10.9 k/uL (3.8-10.6) H 11/30/20 05:47 RBC 4.47 m/uL (4.30-5.90) 11/30/20 05:47 Hgb 14.3 gm/dL (13.0-17.5) 11/30/20 05:47 Hct 45.1 % (39.0-53.0) 11/30/20 05:47 MCV 101.1 fL (80.0-100.0) H 11/30/20 05:47 MCH 32.0 pg (25.0-35.0) 11/30/20 05:47 MCHC 31.7 g/dL (31.0-37.0) 11/30/20 05:47 RDW 12.8 % (11.5-15.5) 11/30/20 05:47 Plt Count 153 k/uL (150-450) 11/30/20 05:47 MPV 7.5 11/30/20 05:47 Neutrophils % 90 % 11/30/20 05:47 Lymphocytes % 7 % 11/30/20 05:47 Monocytes % 2 % 11/30/20 05:47 Eosinophils % 0 % 11/30/20 05:47 Basophils % 0 % 11/30/20 05:47 Neutrophils # 9.9 k/uL (1.3-7.7) H 11/30/20 05:47 Lymphocytes # 0.8 k/uL (1.0-4.8) L 11/30/20 05:47 Monocytes # 0.3 k/uL (0-1.0) 11/30/20 05:47 Eosinophils # 0.0 k/uL (0-0.7) 11/30/20 05:47 Basophils # 0.0 k/uL (0-0.2) 11/30/20 05:47 PT 10.7 sec (9.0-12.0) 11/29/20 19:21 INR 1.0 (<1.2) 11/29/20 19:21 APTT 23.3 sec (22.0-30.0) 11/29/20 19:21 D-Dimer 1.53 mg/L FEU (<0.60) H 11/29/20 19:21 Sodium 139 mmol/L (137-145) 11/30/20 05:47 Potassium 3.9 mmol/L (3.5-5.1) 11/30/20 05:47 Chloride 112 mmol/L (98-107) H 11/30/20 05:47 Carbon Dioxide 16 mmol/L (22-30) L 11/30/20 05:47 Anion Gap 11 mmol/L 11/30/20 05:47 BUN 28 mg/dL (9-20) H 11/30/20 05:47 Creatinine 0.93 mg/dL (0.66-1.25) 11/30/20 05:47 Est GFR (CKD-EPI)AfAm >90 (>60 ml/min/1.73 sqM) 11/30/20 05:47 Est GFR (CKD-EPI)NonAf 82 (>60 ml/min/1.73 sqM) 11/30/20 05:47 Glucose 155 mg/dL (74-99) H 11/30/20 05:47 POC Glucose (mg/dL) 124 mg/dL (75-99) H 11/30/20 01:31 POC Glu [employer] MIKEY Nicky Freed 11/30/20 01:31 Calcium 9.7 mg/dL (8.4-10.2) 11/30/20 05:47 Phosphorus 3.2 mg/dL (2.5-4.5) 11/30/20 05:47 Magnesium 1.8 mg/dL (1.6-2.3) 11/30/20 05:47 Total Bilirubin 0.5 mg/dL (0.2-1.3) 11/30/20 05:47 AST 43 U/L (17-59) 11/30/20 05:47 ALT 33 U/L (4-49) 11/30/20 05:47 Alkaline Phosphatase 98 U/L (38-126) 11/30/20 05:47 Troponin I 0.016 ng/mL (0.000-0.034) 11/29/20 19:21 Total Protein 7.1 g/dL (6.3-8.2) 11/30/20 05:47 Albumin 3.8 g/dL (3.5-5.0) 11/30/20 05:47 Urine Color Yellow 11/29/20 19:21 Urine Appearance Clear (Clear) 11/29/20 19:21 Urine pH 5.5 (5.0-8.0) 11/29/20 19:21 Ur Specific [place] 1.026 (1.001-1.035) 11/29/20 19:21 Urine Protein Trace (Negative) H 11/29/20 19:21 Urine Glucose (UA) Negative (Negative) 11/29/20 19:21 Urine Ketones Negative (Negative) 11/29/20 19:21 Urine Blood Negative (Negative) 11/29/20 19:21 Urine Nitrite Negative (Negative) 11/29/20 19:21 Urine Bilirubin Negative (Negative) 11/29/20 19:21 Urine Urobilinogen <2.0 mg/dL (<2.0) 11/29/20 19:21 Ur Leukocyte Esterase Negative (Negative) 11/29/20 19:21 PT/INR, D-dimer PT 10.7 sec (9.0-12.0) 11/29/20 19:21 INR 1.0 (<1.2) 11/29/20 19:21 D-Dimer 1.53 mg/L FEU (<0.60) H 11/29/20 19:21 Abnormal lab findings: Abnormal Labs 11/29/20 11/29/20 11/29/20 19:21 19:21 19:21 WBC MCV Neutrophils # Lymphocytes # D-Dimer 1.53 H Chloride 112 H Carbon Dioxide 19 L BUN 26 H Glucose POC Glucose (mg/dL) Urine Protein Trace H 11/30/20 11/30/20 11/30/20 01:31 05:47 05:47 WBC 10.9 H MCV 101.1 H Neutrophils # 9.9 H Lymphocytes # 0.8 L D-Dimer Chloride 112 H Carbon Dioxide 16 L BUN 28 H Glucose 155 H POC Glucose (mg/dL) 124 H Urine Protein - Diagnostic Findings Chest x-ray: image reviewed Assessment and Plan Plan: 1. Third-degree AV block with secondary syncope/presyncope, currently has a transvenous pacemaker as a backup at the rate of 35 beats per minute and the patient is awaiting a permanent pacemaker insertion. Note that the patient had a head trauma without any significant injuries. CAT scan of the brain was negative. No signs of any brain concussion. 2. Coronary artery disease with previous history of coronary artery bypass grafting and PCI 3 TAVR for severe aortic stenosis post transcatheter aortic valve replacement with a 35 mm core valve evolute proplus, 4. 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 COPD Former smoker, preop FEV1 was 3.06 or 88% of predicted, relatively normal PFT 6. Obstructive sleep apnea on CPAP therapy at home 7. History of narcolepsy 8 degenerative arthritis with chronic lumbar degenerative disc disease and back pain 9 dementia with chronic memory issues 10 hyperlipidemia 11 remote history of DVT currently on no anticoagulants Plan Keep the temporary transvenous pacemaker as a backup rate of 35 per cardiology Continue isoproterenol and dopamine drip Monitor hemodynamics Permanent pacemaker insertion today May need to repeat echocardiogram Cardiology is on the case Allow the patient utilizes on CPAP from home Stop beta blockers for now We'll continue to follow. Keep the patient ICU for another 24 hours.
[2020-11-30] MEDS: DEXTROSE 5% IN WATER 1,000 ML with SODIUM BICARB (1 MEQ/ML) 150 ML IV SCH (11:19)
[2020-11-30] MEDS ORDERED: IOPAMIDOL-250 50ML BTL IV ONE (14:15)
[2020-11-30] MEDS: MIDAZOLAM 2 MG/2 ML VIAL IV ONE ×2 (14:26→14:43)
--- NOTE | 2020-11-30 15:00 | P.HPIM ---
History of Present Illness Patient is a pleasant 68-year-old male came in after a syncopal episode found to have third-degree AV block patient is on atenolol. Patient underwent emergent transvenous pacemaker placement. Patient had a trauma to head because of which a CT of the head was done which was negative. CT angios the chest rule out pulmonary embolism. Patient is also on the isoproterenol infusion and dopamine infusion. Patient is presently medically stable. Patient denied any fever chills nausea vomiting abdominal pain dysuria. REVIEW OF SYSTEMS: CONSTITUTIONAL: No fever, no malaise, no fatigue. HEENT: No recent visual problems or hearing problems. Denied any sore throat. CARDIOVASCULAR: No chest pain, orthopnea, PND, no palpitations, no syncope. PULMONARY: No shortness of breath, no cough, no hemoptysis. GASTROINTESTINAL: No diarrhea, no nausea, no vomiting, no abdominal pain. NEUROLOGICAL: No headaches, no weakness, no numbness. HEMATOLOGICAL: Denies any bleeding or petechiae. GENITOURINARY: Denies any burning micturition, frequency, or urgency. MUSCULOSKELETAL/RHEUMATOLOGICAL: Denies any joint pain, swelling, or any muscle pain. ENDOCRINE: Denies any polyuria or polydipsia. The rest of the 14-point review of systems is negative. PHYSICAL EXAMINATION: GENERAL: The patient is alert and oriented x3, not in any acute distress. Well developed, well nourished. HEENT: Pupils are round and equally reacting to light. EOMI. No scleral icterus. No conjunctival pallor. Normocephalic, atraumatic. No pharyngeal erythema. No thyromegaly. CARDIOVASCULAR: S1 and S2 present. No murmurs, rubs, or gallops. PULMONARY: Chest is clear to auscultation, no wheezing or crackles. ABDOMEN: Soft, nontender, nondistended, normoactive bowel sounds. No palpable organomegaly. MUSCULOSKELETAL: No joint swelling or deformity. EXTREMITIES: No cyanosis, clubbing, or pedal edema. NEUROLOGICAL: Gross neurological examination did not reveal any focal deficits. SKIN: No rashes. Assessment and plan Syncope: Secondary to third-degree AV block, patient will undergo permanent pacemaker insertion presently has a temporary transvenous pacemaker [place]-: Artery disease with a CABG in the past patient will be resumed on aspirin and Plavix will be held for now -Severe aortic stenosis and status post TAVR -Obstructive sleep apnea patient uses CPAP machine next and-COPD without any significant exacerbation -Dementia probably dementia of Alzheimer's type -Hyperlipidemia -History of DVT in the past presently not on any anticoagulation -Noniron gap metabolic acidosis secondary to hyperchloremia DVT prophylaxis: SCDs for now once the the permanent pacemaker is placed patient will be on subcutaneous heparin or Lovenox Past Medical History Past Medical History: Chest Pain / Angina, Heart Failure, COPD, Dementia, Deep Vein Thrombosis (DVT), Eye Disorder, GERD/Reflux, Hyperlipidemia, Hypertension, Memory Impairment, Musculoskeletal Disorder, Osteoarthritis (OA), Pneumonia, Sleep Apnea/CPAP/BIPAP Additional Past Medical History / Comment(s): Narcolepsy, uses CPAP, Lumbar Degenarative Disc Disease, bulging discs, chronic back pain, varicose veins, sinus problems, 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 Short term memory issues, beginnings of Dementia. "has learning disability, does not read." History of Any Multi-Drug Resistant Organisms: None Reported Past Surgical History: Adenoidectomy, Coronary Bypass/CABG, Heart Catheterization With Stent, Joint Replacement, Orthopedic Surgery, Tonsillectomy Additional Past Surgical History / Comment(s): Double bypass, "post op wires came apart, went septic and had I&D of sternum. Bilateral cataract surgery, pain clinic procedures(radio frequency ablation), right knee arthroscopy, right knee replacment, right shoulder arthroscopy, right shoulder replacment. Valve replacment Past Anesthesia/Blood Transfusion Reactions: No Reported Reaction Date of Last Stent Placement:: 2004 Past Psychological History: Depression Smoking Status: Former smoker Past Alcohol Use History: Rare Additional Past Alcohol Use History / Comment(s): Smoked for >30 years, 2 ppd, quit in 1990. Past Drug Use History: None Reported Additional Drug Use History / Comment(s): Drinks about 2 beers/week - Past Family History Father Family Medical History: Coronary Artery Disease (CAD) Additional Family Medical History / Comment(s): heart problems Mother Family Medical History: Cancer Additional Family Medical History / Comment(s): Ovarian cancer. Medications and Allergies Home Medications Medication Instructions Recorded Confirmed Type Aspirin EC [Ecotrin Low Dose] 81 mg PO DAILY 03/23/16 11/29/20 History Escitalopram [Lexapro] 10 mg PO DAILY 03/23/16 11/29/20 History Montelukast [Singulair] 10 mg PO HS 03/23/16 11/29/20 History Simvastatin [Zocor] 40 mg PO HS 03/23/16 11/29/20 History Topiramate [Topamax] 100 mg PO BID 03/23/16 11/29/20 History atenoloL [Tenormin] 12.5 mg PO DAILY 10/12/16 11/29/20 History Hydrocodone/Acetaminophen [Vicodin 1 tab PO TID PRN 06/24/20 11/29/20 History ES 7.5-300 mg] Losartan [Cozaar] 50 mg PO DAILY 06/24/20 11/29/20 History Memantine HCl 10 mg PO BID 06/24/20 11/29/20 History Clopidogrel [Plavix] 75 mg PO DAILY #30 tab 08/15/20 11/29/20 Rx Fluticasone/Vilanterol [Breo 1 puff INHALATION RT-DAILY 11/29/20 11/29/20 History Ellipta 100-25 Mcg Inhaler] Loratadine [Claritin] 10 mg PO HS 11/29/20 11/29/20 History modafiniL [Provigil] 100 mg PO BID 11/29/20 11/29/20 History Allergies Allergy/AdvReac Type Severity Reaction Status Date / Time bee pollen Allergy Anaphylaxis Verified 11/29/20 21:20 shrimp Allergy Anaphylaxis Verified 11/29/20 21:20 Physical Exam Vitals: Vital Signs Temp Pulse Resp BP Pulse Ox 11/30/20 13:30 49 L 10 L 122/51 95 11/30/20 13:00 49 L 19 118/53 96 11/30/20 12:30 48 L 19 112/60 94 L 11/30/20 12:00 99.0 F 49 L 18 108/45 95 11/30/20 11:30 41 L 15 164/61 95 11/30/20 11:00 40 L 15 149/73 95 11/30/20 10:30 41 L 14 95 11/30/20 10:00 37 L 14 143/59 93 L 11/30/20 09:30 39 L 22 156/62 95 11/30/20 09:00 40 L 18 129/90 96 11/30/20 08:30 98.0 F 42 L 19 145/79 94 L 11/30/20 08:00 44 L 20 132/82 94 L 11/30/20 07:30 38 L 20 132/57 93 L 11/30/20 07:12 94 L 11/30/20 07:00 42 L 13 116/58 93 L 11/30/20 06:30 41 L 18 124/49 96 11/30/20 06:00 42 L 14 131/48 94 L 11/30/20 05:00 41 L 16 132/52 94 L 11/30/20 04:00 40 L 18 153/64 93 L 11/30/20 03:00 38 L 12 155/63 91 L 11/30/20 02:00 38 L 15 161/72 94 L 11/30/20 01:25 38 L 18 134/60 93 L 11/30/20 01:00 36 L 20 128/54 90 L 11/30/20 00:30 36 L 18 108/53 95 11/30/20 00:00 36 L 18 141/115 91 L 11/29/20 23:32 39 L 14 137/71 11/29/20 23:02 39 L 144/68 92 L 11/29/20 23:00 39 L 20 151/65 94 L 11/29/20 22:45 42 L 20 151/65 90 L 11/29/20 22:30 42 L 20 136/69 92 L 11/29/20 22:15 40 L 20 136/69 97 11/29/20 22:00 30 L 20 136/91 94 L 11/29/20 21:45 80 20 133/90 98 11/29/20 21:30 20 147/74 96 11/29/20 21:15 74 20 131/66 98 11/29/20 21:00 64 20 119/69 98 11/29/20 20:45 66 20 127/65 98 11/29/20 20:30 67 20 119/67 97 11/29/20 20:15 65 20 123/70 98 11/29/20 20:00 76 20 133/69 97 11/29/20 19:43 61 20 177/68 96 11/29/20 18:56 97.6 F 60 18 129/58 98 Intake and Output 11/30/20 11/30/20 11/30/20 06:59 14:59 22:59 Intake Total 655.618 409.415 Output Total 985 250 Balance -329.382 159.415 Intake: IV 540 350 0.9 NaCl- 490 350 Intake, IV Titration 115.618 59.415 Amount DOPamine DRIP 800 mg In 115.618 Dextrose/Water 1 250ml. bag @ 5 MCG/KG/MIN 12.119 mls/hr IV .[id number] ONE Rx#:[id number] Isoproterenol 1,000 mcg 59.415 In Dextrose 5% in Water 250 ml @ Per Protocol IV .Q0M [facility] Rx#:[id number] Output: Urine 985 250 Other: Voiding Method Indwelling Catheter Indwelling Catheter Weight 132.9 kg Results CBC & Chem 7: 11/30/20 05:47 11/30/20 05:47 Labs: Abnormal Lab Results - Last 24 Hours (Table) 11/29/20 11/29/20 11/29/20 Range/Units 19:21 19:21 19:21 WBC (3.8-10.6) k/uL MCV (80.0-100.0) fL Neutrophils # (1.3-7.7) k/uL Lymphocytes # (1.0-4.8) k/uL D-Dimer 1.53 H (<0.60) mg/L FEU Chloride 112 H (98-107) mmol/L Carbon Dioxide 19 L (22-30) mmol/L BUN 26 H (9-20) mg/dL Glucose (74-99) mg/dL POC Glucose (mg/dL) (75-99) mg/dL Urine Protein Trace H (Negative) 11/30/20 11/30/20 11/30/20 Range/Units 01:31 05:47 05:47 WBC 10.9 H (3.8-10.6) k/uL MCV 101.1 H (80.0-100.0) fL Neutrophils # 9.9 H (1.3-7.7) k/uL Lymphocytes # 0.8 L (1.0-4.8) k/uL D-Dimer (<0.60) mg/L FEU Chloride 112 H (98-107) mmol/L Carbon Dioxide 16 L (22-30) mmol/L BUN 28 H (9-20) mg/dL Glucose 155 H (74-99) mg/dL POC Glucose (mg/dL) 124 H (75-99) mg/dL Urine Protein (Negative) Thrombosis Risk Factor Assmnt - Choose All That Apply Each Factor Represents 1 point: Abnormal pulmonary function (COPD), Obesity (BMI >25) Other Risk Factors: Yes Each Risk Factor Represents 2 Points: Age 61-74 years, Patient confined to bed Each Risk Factor Represents 3 Points: History of DVT/PE Other congenital or acquired thrombophilia - If yes, enter type in comment: No Thrombosis Risk Factor Assessment Total Risk Factor Score: 9 Thrombosis Risk Factor Assessment Level: High Risk
[2020-11-30] MEDS ORDERED: HYDROmorphone 0.5 MG/0.5 ML SYRINGE IVP ONE ×3 (15:04→15:20)
[2020-11-30] MEDS ORDERED: HYDROcodone/APAP 7.5-325MG 1 EACH TAB PO PRN (16:30)
[2020-11-30] MEDS ORDERED: modafiniL 100 MG TAB PO SCH (17:00)
--- NOTE | 2020-11-30 17:30 | XR ---
EXAMINATION TYPE: XR chest 1V portable DATE OF EXAM: 11/30/2020 COMPARISON: Yesterday HISTORY: Check line placement TECHNIQUE: Single view FINDINGS: There is right shoulder prosthesis. There is left axillary pacemaker. Lead tips are over th e right ventricle. The lungs are clear. There is no heart failure. There are sternal wires. Costophre hernán angles are clear. There are chest leads. IMPRESSION: No active cardiopulmonary disease. There is a new left axillary pacemaker compared to yes terday.
--- NOTE | 2020-11-30 18:52 | PCN ---
PROCEDURE NOTE PERMANENT DUAL-CHAMBER PACEMAKER REPORT: PROCEDURE: Permanent dual-chamber pacemaker placement from left infraclavicular approach. PERFORMED BY: Dr. Kirby Romano. Moderate conscious sedation time was 98 minutes. Patient was administered Versed and Dilaudid. Oxygen saturation, hemodynamics and EKG were monitored closely. CLINICAL INFORMATION: Mr. Jose Coon is a 70-year-old gentleman with CAD, prior bypass surgery and PCI. He has hypertension, diabetes, hyperlipidemia, obstructive sleep apnea. He recently in July of this year had a percutaneous aortic valve implant placed. He came into the hospital last night with syncope, an 8-second pause and recurrent episodes. This morning around 4:30 a.m. I placed a temporary transvenous pacemaker from right femoral venous approach. We brought him back for a dual-chamber pacemaker today after due discussion regarding rationale, risks, benefits and options. PROCEDURE NOTE: Under local anesthesia and strict aseptic precautions, two access points were obtained into the left axillary vein under fluoroscopic guidance. Micropuncture needle technique was used. A linear incision was made of about 3-1/2 inches medial and parallel to the left deltopectoral groove. A subfacial pocket was made with blunt dissection using cautery and the scalpel. There was a lot of oozing. Good hemostasis was secured. The pocket was nice and dry. A 6-[place] introducer was placed over the guidewire, and through the introducer a ventricular lead was advanced and positioned in the right ventricular apex. There was some difficulty in getting into the ventricle because of a large atrium. Good position was achieved with sensitivities and thresholds. The lead was then secured to the underlying muscle with an 0 silk suture. The peel-away sheath was taken out. I then advanced another peel-away sheath over the next guidewire, and through the sheath atrial lead was advanced and positioned. After some effort, atrial lead was also secured to the underlying muscle after getting good thresholds and sensitivities. Both the leads were checked with ten-volt pacing and were also visualized in [place] and WHITE projections. There was an antibiotic sponge left in the pocket for about 30 minutes. The pocket was irrigated with antibiotic. With the initiation of the pacemaker procedure, patient also received intravenous antibiotic infusion as per protocol. The pulse generator was then attached to the two leads. Pulse generator was also secured to the underlying muscle in the line of the incision. The wound was closed in 3 layers. Excellent hemostasis was secured. The patient will be sent to the room in a stable condition. His Isuprel drip and dopamine drip were stopped. The temporary pacemaker from the right femoral venous approach was taken out and also the 6-[place] introducer was taken out. Good hemostasis was secured. The patient tolerated the procedure well without complications. PACEMAKER INFORMATION: Pulse generator model [facility] [id number], serial #[id number]. Atrial lead biological technician [employer], model 2088TC-46, serial #[id number]. Right ventricular lead biological technician [employer], model 2088TC-58, serial #[id number]. Atrial lead threshold was 0.75 V at 0.5 millisecond. P-waves were 1.4 mV. Impedance was 450 ohms. The ventricular lead threshold was 0.375 V at 0.5 millisecond. R-waves were 12.2 mV. Lead impedance was 540 ohms. The device was set in a DDD mode with a low rate of 50, high rate of 110, AV sense delay of 250 milliseconds, pace delay of 275 milliseconds. The patient tolerated the procedure well without complications. MMODL / IJN: [id number] /
[2020-11-30] MEDS: SYMBICORT 80-4.5 MCG INHALER INHALATION SCH (20:41)
[2020-11-30] MEDS: MEMANTINE 10 MG TAB PO SCH (22:00)
[2020-11-30] MEDS: TOPIRAMATE 100 MG TAB PO SCH (22:00)
[2020-11-30] MEDS: MONTELUKAST 10 MG TAB PO SCH (22:04)
[2020-11-30] MEDS: ATORVASTATIN 20 MG TAB PO SCH (22:04)
[2020-11-30] MEDS: LORATADINE 10 MG TAB PO SCH (22:04)
[2020-12-01] MEDS ORDERED: amLODIPine 5 MG TAB PO STA (03:40)
[2020-12-01 04:26] LABS: Basophils # (A) 0.1 k/uL (0-0.2); Basophils % (A) 1 %; Eosinophils # (A) 0.1 k/uL (0-0.7); Eosinophils % (A) 1 %; HCT 40.8 % (39.0-53.0); HGB 13.4 gm/dL (13.0-17.5); Lymphocytes # (A) 1.5 k/uL (1.0-4.8); Lymphocytes % (A) 13 %; MCH 32.7 pg (25.0-35.0); MCHC 32.8 g/dL (31.0-37.0); MCV 99.6 fL (80.0-100.0); Mean Platelet Volume 7.7; Monocytes # (A) 0.6 k/uL (0-1.0); Monocytes % (A) 5 %; Neutrophils # (A) 9.3 k/uL (1.3-7.7); Neutrophils % (A) 79 %; Platelet Count 130 k/uL (150-450); WBC 11.7 k/uL (3.8-10.6)
[2020-12-01 05:05] LABS: African American GFR (CKD) >90 (>60 ml/min/1.73 sqM); Anion Gap 6 mmol/L; Blood Urea Nitrogen 26 mg/dL (9-20); Carbon Dioxide 18 mmol/L (22-30); Chloride 112 mmol/L (98-107); Glucose 111 mg/dL (74-99); Magnesium 1.8 mg/dL (1.6-2.3); Non-African American GFR(CKD) 90 (>60 ml/min/1.73 sqM); Potassium 3.8 mmol/L (3.5-5.1); Sodium 136 mmol/L (137-145)
--- NOTE | 2020-12-01 06:13 | XR ---
EXAMINATION TYPE: XR chest 1V DATE OF EXAM: 12/01/2020 CLINICAL HISTORY: Cough progress study. TECHNIQUE: Single AP portable upright view of the chest is obtained. COMPARISON: Chest x-ray from one day earlier. CTA chest 2 days ago. FINDINGS: Persistent cardiomegaly with dual lead pacemaker. Overlying sternal wires redemonstrated. Elevated left hemidiaphragm without suspicious focal airspace opacity, pleural effusion, or pneumotho rax seen. Partial visualization of surgical change right shoulder level. IMPRESSION: Cardiomegaly and chronic changes without acute pulmonary process. No significant change f rom one day earlier.
[2020-12-01] MEDS: SODIUM CHLORIDE 0.9% 1,000 ML IV SCH ×2 (06:29→20:25)
[2020-12-01] MEDS: PANTOPRAZOLE 40 MG/10 ML VIAL IV SCH (06:29)
[2020-12-01] MEDS: SYMBICORT 80-4.5 MCG INHALER INHALATION SCH ×2 (07:38→20:12)
[2020-12-01] MEDS ORDERED: Potassium Replacement Protocol 1 EACH MISC MISCELLANE PRN (07:59)
[2020-12-01] MEDS ORDERED: POTASSIUM CHLORIDE ER 20 MEQ TAB.ER PO SCH (08:00)
[2020-12-01] MEDS: LOSARTAN 50 MG TAB PO SCH (08:02)
[2020-12-01] MEDS: ASPIRIN 81 MG PO SCH (08:02)
[2020-12-01] MEDS: TOPIRAMATE 100 MG TAB PO SCH ×2 (08:03→20:25)
[2020-12-01] MEDS: MEMANTINE 10 MG TAB PO SCH ×2 (08:03→20:25)
[2020-12-01] MEDS: ESCITALOPRAM 10 MG TAB PO SCH (08:03)
--- NOTE | 2020-12-01 08:37 | P.PN ---
Subjective Progress Note Date: 12/01/20 12/01/2020, the patient's is still in the intensive care unit. The patient presented with her degree AV block. The patient underwent a dual-chamber permanent pacemaker insertion yesterday. Procedure was uncomplicated. The temporary transvenous pacemaker was removed and the patient was also taken off t he dopamine and isoproterenol. Chest x-ray from today shows the pacemaker pocket on location. Wires of medication. There is cardiomegaly and the smallest PATIENT is a congestion. Otherwise, the patient is doing well. The patient is hemodynamically stable. She is ambulating. He'll be transferred out of the intensive care unit today. As mentioned earlier, the patient is post TAVR procedure. Blood work from today shows a white cell count 11.7 with a hemoglobin of 13.4 and platelets 1:30. Serum bicarb is up to 18 and the patient is on a bicarb infusion and this will be continued for the next 24 hours to correct his bicarb deficit. BUN is 26 and the creatinine is at 0.8. He received antibiotic prophylaxis with cefazolin. I'll patient medication has been resumed Tenormin 12.5 mg by mouth once a day. Objective - Vital Signs Vital signs: Vital Signs Temp 98 F 12/01/20 04:00 Pulse 72 12/01/20 06:00 Resp 17 12/01/20 06:00 BP 138/82 12/01/20 06:00 Pulse Ox 95 12/01/20 06:00 Intake & Output 11/30/20 12/01/20 12/01/20 18:59 06:59 18:59 Intake Total 217.727 2319 Output Total 440 900 Balance 419.415 275 Intake: IV 800 1175 0.9 NaCl- 500 600 Sodium Bicarbonate 525 ceFAZolin 2 gm In Sodium 50 Chloride 0.9% 50 ml @ 100 mls/hr IVPB ONCE ONE Rx# :[id number] Intake, IV Titration 59.415 Amount Isoproterenol 1,000 mcg 59.415 In Dextrose 5% in Water 250 ml @ Per Protocol IV .Q0M [facility] Rx#:[id number] Output: Urine 440 900 Other: Voiding Method Indwelling Catheter - Exam The patient appeared well nourished and normally developed. Vital signs as documented. Head exam is unremarkable. No scleral icterus or corneal arcus noted. Neck is without jugular venous distension, thyromegaly, or carotid bruits. Carotid upstrokes are brisk bilaterally. Lungs are clear to auscultation and percussion. Cardiac exam reveals the PMI to be normally sized and situated. The cardiac rhythmand the patient is systolic ejection murmur grade 3/6 heard throughout the precordium. There is also a pacemaker pocket over the left anterior chest area. The patient is currently wearing a left upper extremity sling.. First and second heart sounds normal. No murmurs, rubs or gallops. Abdominal exam reveals normal bowel sounds, no masses, no organomegaly and no aortic enlargement. Extremities are nonedematous and both femoral and pedal pulses are normal.Examination of the skin revealed no evidence of significant rashes, suspicious appearing nevi or other concerning lesions. The patient also has a Stinson catheter in place that needs to be removed. He has chronic back pain in his mobility and gait has been affected by that. No imbalance. No syncope.Neurologically, the patient is awake and alert and the patient does not have any focal neurological deficit. Cranial nerves are essentially intact. - Labs CBC & Chem 7: 12/01/20 04:07 12/01/20 04:07 Labs: Abnormal Lab Results - Last 24 Hours (Table) 12/01/20 12/01/20 Range/Units 04:07 04:07 WBC 11.7 H (3.8-10.6) k/uL RBC 4.10 L (4.30-5.90) m/uL Plt Count 130 L (150-450) k/uL Neutrophils # 9.3 H (1.3-7.7) k/uL Sodium 136 L (137-145) mmol/L Chloride 112 H (98-107) mmol/L Carbon Dioxide 18 L (22-30) mmol/L BUN 26 H (9-20) mg/dL Glucose 111 H (74-99) mg/dL Assessment and Plan Plan: 1. Third-degree AV block with secondary syncope/presyncope, currently has a transvenous pacemaker as a backup at the rate of 35 beats per minute and the patient is awaiting a permanent pacemaker insertion. Note that the patient had a head trauma without any significant injuries. CAT scan of the brain was negative. No signs of any brain concussion. The patient is post permanent pacemaker insertion, dual-chamber, and the procedure was performed successfully without any complications and the patient is currently hemodynamically stable off dopamine and off isoproterenol. Tenormin was started low dose at 12.5 mg by mouth daily. Chest x-ray shows no complications. A small left-sided pleural effusion. There is some mild cardiomegaly. 2. Coronary artery disease with previous history of coronary artery bypass gra fting and PCI 3 TAVR for severe aortic stenosis post transcatheter aortic valve replacement with a 35 mm core valve evolute proplus, 4. 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 COPD Former smoker, preop FEV1 was 3.06 or 88% of predicted, relatively normal PFT 6. Obstructive sleep apnea on CPAP therapy at home 7. History of narcolepsy 8 degenerative arthritis with chronic lumbar degenerative disc disease and back pain 9 dementia with chronic memory issues 10 hyperlipidemia 11 remote history of DVT currently on no anticoagulants 12 non-anion gap metabolic acidosis Plan Continue bicarb infusion as the patient's serum bicarb is at 18 and this will be continued for the next 24 hours Monitor hemodynamics, currently stable Permanent pacemaker insertion was completed and the patient has a dual-chamber asymmetric insertion Cardiology is on the case Allow the patient utilizes on CPAP from home Outpatient medications have been resumed [place] for pain control as pressure with ongoing back pain We'll continue to follow. Transfer this patient out of the intensive care unit.
--- NOTE | 2020-12-01 08:38 | XR ---
EXAMINATION TYPE: XR chest 2V DATE OF EXAM: 12/01/2020 COMPARISON: Chest x-ray from earlier today HISTORY: Pacemaker placement. TECHNIQUE: Frontal and lateral views of the chest are obtained. FINDINGS: New pacemaker has leads projecting over right atrium and right ventricle. Suboptimal study due to large body habitus and poor positioning. Persistent cardiomegaly and overlying sternal wires. Stable elevated left hemidiaphragm and chronic parenchymal changes. Tiny bilateral pleural effusions seen best on lateral view. Partial visualization surgical change right shoulder level. IMPRESSION: Pacemaker position adequate. Slight fluid overload state with mild central vascular jewel estion and tiny bilateral pleural effusions noted.
[2020-12-01] MEDS ORDERED: amLODIPine 5 MG TAB PO SCH (09:00)
[2020-12-01] MEDS ORDERED: LOSARTAN 50 MG TAB PO SCH (09:00)
[2020-12-01] MEDS: DEXTROSE 5% IN WATER 1,000 ML with SODIUM BICARB (1 MEQ/ML) 150 ML IV SCH ×3 (10:21)
[2020-12-01] MEDS: modafiniL 100 MG TAB PO SCH ×2 (10:21→15:37)
--- NOTE | 2020-12-01 11:37 | PN ---
PROGRESS NOTE This gentleman has history of CAD, prior PCI and bypass surgery. He also has a percutaneous aortic valve replacement. He has hypertension, hyperlipidemia, type 2 diabetes, and obstructive sleep apnea. He came in the night before with syncope and collapse, had a long pause and went on to have a temporary pacemaker in the early hours of November 30 and yesterday again around 2:00 pm I placed a permanent dual-chamber pacemaker from left infraclavicular approach. He is doing well this morning. Pacemaker site is clean and dry. The device is functioning well. He will have a device check sometime today and he will increase activity and hopefully he will be discharged tomorrow. His chest x-ray looks good. There is no evidence of any abnormality. Pacemaker leads are in a good position. The device will be interrogated today. Blood pressure was slightly high, but it is better now. His vital signs are stable. No JVD. S1, S2 heard normally. Ejection systolic murmur is audible. Lungs are clear. Abdomen is soft, nontender. Lower extremities reveal diminished pulses. Central nervous system grossly within normal limits. PLAN: Increase activity, move him to telemetry, obtain a two-view chest x-ray, check device and hopefully discharged tomorrow. MMODL / IJN: [id number] /
[2020-12-01] MEDS ORDERED: FUROSEMIDE 10 MG/ML 2 ML VIAL IV ONE (11:57)
--- NOTE | 2020-12-01 15:50 | P.PN ---
Subjective Patient is a pleasant 68-year-old male came in after a syncopal episode found to have third-degree AV block patient is on atenolol. Patient underwent emergent transvenous pacemaker placement. Patient had a trauma to head because of which a CT of the head was done which was negative. CT angios the chest rule out pulmonary embolism. Patient is also on the isoproterenol infusion and dopamine infusion. Patient is presently medically stable. Patient denied any fever chills nausea vomiting abdominal pain dysuria. 12/01/2020 Patient had a dual-chamber permanent pacemaker placement. Patient is off dopamine and isoproterenol. Chest x-ray showing some pulmonary edema patient was given a dose of Lasix with improvement in his respiratory status. Patient is presently on antibiotic prophylaxis with ceftezolin Constitutional: Denied any fatigue denied any fever. Cardio vascular: denied any chest pain, palpitations Gastrointestinal denied any nausea vomiting Pulmonary: Denied any shortness of breath cough Neurologic denied any new focal deficits All inpatient medications were reviewed and appropriate changes in these medications as dictated in the interval history and assessment and plan. PHYSICAL EXAMINATION: GENERAL: The patient is alert and oriented x3, not in any acute distress. Well developed, well nourished. HEENT: Pupils are round and equally reacting to light. EOMI. No scleral icterus. No conjunctival pallor. Normocephalic, atraumatic. No pharyngeal erythema. No thyromegaly. CARDIOVASCULAR: S1 and S2 present. No murmurs, rubs, or gallops. PULMONARY: Chest is clear to auscultation, no wheezing or crackles. ABDOMEN: Soft, nontender, nondistended, normoactive bowel sounds. No palpable organomegaly. MUSCULOSKELETAL: No joint swelling or deformity. EXTREMITIES: No cyanosis, clubbing, or pedal edema. NEUROLOGICAL: Gross neurological examination did not reveal any focal deficits. SKIN: No rashes. Assessment and plan Syncope: Secondary to third-degree AV block, patient is status post a dual- chamber pacemaker placement Coronary Artery disease with a CABG in the past patient will be resumed on aspirin and Plavix will be held for now -Severe aortic stenosis and status post TAVR -Obstructive sleep apnea patient uses CPAP machine next and-COPD without any significant exacerbation -Dementia probably dementia of Alzheimer's type -Hyperlipidemia -History of DVT in the past presently not on any anticoagulation -Noniron gap metabolic acidosis secondary to hyperchloremia DVT prophylaxis: Lovenox Objective - Vital Signs Vital signs: Vital Signs Temp 98.2 F 12/01/20 12:00 Pulse 72 12/01/20 15:00 Resp 22 12/01/20 15:00 BP 112/64 12/01/20 15:00 Pulse Ox 94 L 12/01/20 15:00 Intake & Output 11/30/20 12/01/20 12/01/20 18:59 06:59 18:59 Intake Total 154.994 2598 1085 Output Total 844 042 2188 Balance 419.415 275 -137 Intake: IV 800 1175 725 0.9 NaCl- 500 600 Sodium Bicarbonate 525 675 ceFAZolin 2 gm In Sodium 50 50 Chloride 0.9% 50 ml @ 100 mls/hr IVPB ONCE ONE Rx# :[id number] Intake, IV Titration 59.415 Amount Isoproterenol 1,000 mcg 59.415 In Dextrose 5% in Water 250 ml @ Per Protocol IV .Q0M ESTEBAN Rx#:[id number] Oral 360 Output: Urine 957 404 4238 Stool 2 Other: Voiding Method Indwelling Catheter Indwelling Catheter Indwelling Catheter - Labs CBC & Chem 7: 12/01/20 04:07 12/01/20 04:07 Labs: Abnormal Lab Results - Last 24 Hours (Table) 12/01/20 12/01/20 Range/Units 04:07 04:07 WBC 11.7 H (3.8-10.6) k/uL RBC 4.10 L (4.30-5.90) m/uL Plt Count 130 L (150-450) k/uL Neutrophils # 9.3 H (1.3-7.7) k/uL Sodium 136 L (137-145) mmol/L Chloride 112 H (98-107) mmol/L Carbon Dioxide 18 L (22-30) mmol/L BUN 26 H (9-20) mg/dL Glucose 111 H (74-99) mg/dL
[2020-12-01] MEDS: MONTELUKAST 10 MG TAB PO SCH (20:24)
[2020-12-01] MEDS: ATORVASTATIN 20 MG TAB PO SCH (20:24)
[2020-12-01] MEDS: LORATADINE 10 MG TAB PO SCH (20:24)
[2020-12-02] MEDS: modafiniL 100 MG TAB PO SCH (05:16)
[2020-12-02] MEDS: PANTOPRAZOLE 40 MG/10 ML VIAL IV SCH (05:16)
[2020-12-02] MEDS: DEXTROSE 5% IN WATER 1,000 ML with SODIUM BICARB (1 MEQ/ML) 150 ML IV SCH (05:16)
[2020-12-02] MEDS: TOPIRAMATE 100 MG TAB PO SCH (07:59)
[2020-12-02] MEDS: ESCITALOPRAM 10 MG TAB PO SCH (07:59)
[2020-12-02] MEDS: LOSARTAN 50 MG TAB PO SCH (07:59)
[2020-12-02] MEDS: ASPIRIN 81 MG PO SCH (07:59)
[2020-12-02] MEDS: MEMANTINE 10 MG TAB PO SCH (07:59)
[2020-12-02 08:05] VITALS: BP 119/70; PULSE 71; RESP 18; TEMP 97.9
[2020-12-02 08:06] LABS: Basophils # (A) 0.1 k/uL (0-0.2); Basophils % (A) 1 %; Eosinophils # (A) 0.3 k/uL (0-0.7); Eosinophils % (A) 3 %; HCT 43.2 % (39.0-53.0); Lymphocytes # (A) 1.8 k/uL (1.0-4.8); Lymphocytes % (A) 19 %; MCH 32.1 pg (25.0-35.0); MCHC 32.3 g/dL (31.0-37.0); MCV 99.5 fL (80.0-100.0); Mean Platelet Volume 7.5; Monocytes # (A) 0.7 k/uL (0-1.0); Monocytes % (A) 7 %; Neutrophils # (A) 6.4 k/uL (1.3-7.7); Neutrophils % (A) 69 %; Platelet Count 134 k/uL (150-450); RBC 4.34 m/uL (4.30-5.90); RDW 12.9 % (11.5-15.5); WBC 9.3 k/uL (3.8-10.6)
[2020-12-02] MEDS: SYMBICORT 80-4.5 MCG INHALER INHALATION SCH (08:11)
[2020-12-02 08:15] LABS: African American GFR (CKD) >90 (>60 ml/min/1.73 sqM); Anion Gap 9 mmol/L; Blood Urea Nitrogen 21 mg/dL (9-20); Calcium 8.8 mg/dL (8.4-10.2); Carbon Dioxide 19 mmol/L (22-30); Chloride 109 mmol/L (98-107); Glucose 101 mg/dL (74-99); Non-African American GFR(CKD) >90 (>60 ml/min/1.73 sqM); Sodium 137 mmol/L (137-145)
[2020-12-02 08:22] LABS: Potassium 3.9 mmol/L (3.5-5.1)
--- NOTE | 2020-12-02 08:30 | P.DS ---
Providers Date of admission: 11/29/20 22:29 Expected date of discharge: 12/02/20 Attending physician: Carlos Palacio MD Consults: 11/29/20 22:29 Consult Physician Stat Consulting Provider: Kaykay Garcia Consult Reason/Comments: critical care Do you want consulting provider notified?: Already Contacted Consult Physician Stat Consulting Provider: Rose Romano Consult Reason/Comments: heart block Do you want consulting provider notified?: Already Contacted Primary care physician: Mine Palacio [facility] Course: Patient is a pleasant 68-year-old male came in after a syncopal episode found to have third-degree AV block patient is on atenolol. Patient underwent emergent transvenous pacemaker placement. Patient had a trauma to head because of which a CT of the head was done which was negative. CT angios the chest rule out pulmonary embolism. Patient is also on the isoproterenol infusion and dopamine infusion. Patient is presently medically stable. Patient denied any fever chills nausea vomiting abdominal pain dysuria. 12/01/2020 Patient had a dual-chamber permanent pacemaker placement. Patient is off dopamine and isoproterenol. Chest x-ray showing some pulmonary edema patient was given a dose of Lasix with improvement in his respiratory status. Patient is presently on antibiotic prophylaxis with ceftezolin 12/02/2020 Pt doing well, BP is stable, no chest pain, shortness of breath, vertigo. Maintained in sinus rhythm. He is discharged in stable condition and recommended to follow up with his PCP and [employer]. Pt started on norvasc while in patient and recommended to continue this. Gen: well developed, well nourished, NAD CV: RRR, no murmur Lungs: normal effort, clear throughout, Skin: warm and dry Patient Condition at Discharge: Critical Plan - Discharge Summary Discharge Rx Participant: No New Discharge Prescriptions: New amLODIPine [Norvasc] 5 mg PO DAILY #30 tab Continue Topiramate [Topamax] 100 mg PO BID Simvastatin [Zocor] 40 mg PO HS Aspirin EC [Ecotrin Low Dose] 81 mg PO DAILY Escitalopram [Lexapro] 10 mg PO DAILY Montelukast [Singulair] 10 mg PO HS atenoloL [Tenormin] 12.5 mg PO DAILY Clopidogrel [Plavix] 75 mg PO DAILY #30 tab Fluticasone/Vilanterol [Breo Ellipta 100-25 Mcg Inhaler] 1 puff INHALATION RT-DAILY modafiniL [Provigil] 100 mg PO BID Losartan [Cozaar] 50 mg PO DAILY Hydrocodone/Acetaminophen [Vicodin ES 7.5-300 mg] 1 tab PO TID PRN PRN Reason: Pain Memantine HCl 10 mg PO BID Loratadine [Claritin] 10 mg PO HS Discharge Medication List Aspirin EC [Ecotrin Low Dose] 81 mg PO DAILY 03/23/16 [History] Escitalopram [Lexapro] 10 mg PO DAILY 03/23/16 [History] Montelukast [Singulair] 10 mg PO HS 03/23/16 [History] Simvastatin [Zocor] 40 mg PO HS 03/23/16 [History] Topiramate [Topamax] 100 mg PO BID 03/23/16 [History] atenoloL [Tenormin] 12.5 mg PO DAILY 10/12/16 [History] Hydrocodone/Acetaminophen [Vicodin ES 7.5-300 mg] 1 tab PO TID PRN 06/24/20 [History] Losartan [Cozaar] 50 mg PO DAILY 06/24/20 [History] Memantine HCl 10 mg PO BID 06/24/20 [History] Clopidogrel [Plavix] 75 mg PO DAILY #30 tab 08/15/20 [Rx] Fluticasone/Vilanterol [Breo Ellipta 100-25 Mcg Inhaler] 1 puff INHALATION RT- DAILY 11/29/20 [History] Loratadine [Claritin] 10 mg PO HS 11/29/20 [History] modafiniL [Provigil] 100 mg PO BID 11/29/20 [History] amLODIPine [Norvasc] 5 mg PO DAILY #30 tab 12/02/20 [Rx] Follow up Appointment(s)/Referral(s): Mine Palacio DO [Primary Care Provider] - 1-2 days Discharge Disposition: HOME SELF-CARE
[2020-12-02] MEDS ORDERED: ENOXAPARIN 40 MG/0.4 ML SYRINGE SQ SCH (09:00)
[2020-12-02] MEDS ORDERED: amLODIPine 5 MG TAB PO SCH (09:00)
--- NOTE | 2020-12-02 14:08 | P.PN ---
Subjective This is a 70-year-old male with a past medical history of coronary artery disease, prior CABG surgery and PCI, hypertension, diabetes, hyperlipidemia, obstructive sleep apnea, TAVR. Patient presented to the hospital with syncope and complete heart block, an 8 second pauses with recurrent episodes. Patient had a temporary pacemaker placed on admission and then Patient underwent dual- chamber permanent pacemaker with Dr. Romano on 11/30/2020. Patient seen and examined at bedside, he is doing well. Denies any chest pain, shortness of breath, lightheadedness, dizziness. He is able to walk around the halls with no difficulty. Chest x-ray reviewed with no acute findings. Device was interrogated yesterday with no acute events, functioning properly. Blood pressure 119/70, heart rate 71, afebrile, maintaining oxygen saturations on room air. Laboratory data review WBC 9.3, hemoglobin 14, platelets 134, sodium 137, potassium 3.9, BUN 21, serum creatinine 0.7. He's currently maintained on aspirin 81 mg daily, atenolol 12.5 mg daily, Plavix 75 mg daily, losartan 50 mg daily, amlodipine 5 mg daily. GENERAL: Well-appearing, well-nourished and in no acute distress. NECK: Supple without JVD or thyromegaly. LUNGS: Breath sounds clear to auscultation bilaterally. Respiration equal and unlabored. No wheezes, rales or rhonchi. HEART: Regular rate and rhythm without murmurs, rubs or gallops. S1 and S2 heard. EXTREMITIES: Normal range of motion, no edema. No clubbing or cyanosis. Peripheral pulses intact. ASSESSMENT: Complete heart block with syncope Coronary artery disease, prior CABG surgery and PCI Hypertension Type 2 diabetes Hyperlipidemia TAVR in July 2020 Obstructive sleep apnea PLAN: Ok to discharge from cardiology perspective Continue current cardiac medications and follow up outpatient within 1 week. Objective - Vital Signs Vital signs: Vital Signs Temp 97.9 F 12/02/20 08:00 Pulse 71 12/02/20 08:00 Resp 18 12/02/20 08:00 BP 119/70 12/02/20 08:00 Pulse Ox 92 L 12/02/20 08:00 Intake & Output 12/01/20 12/02/20 12/02/20 18:59 06:59 18:59 Intake Total 1135 250 560 Output Total 1222 503 300 Balance -87 -253 260 Weight 131.5 kg Intake: IV 775 Sodium Bicarbonate 675 ceFAZolin 2 gm In Sodium 100 Chloride 0.9% 50 ml @ 100 mls/hr IVPB ONCE ONE Rx# :[id number] Oral 360 250 560 Output: Urine 1220 500 300 Stool 2 3 Other: Voiding Method Toilet Toilet Toilet Urinal # Voids 1 3 1 # Bowel Movements 1 - Labs CBC & Chem 7: 12/02/20 07:36 12/02/20 07:36 Labs: Abnormal Lab Results - Last 24 Hours (Table) 12/02/20 12/02/20 Range/Units 07:36 07:36 Plt Count 134 L (150-450) k/uL Chloride 109 H (98-107) mmol/L Carbon Dioxide 19 L (22-30) mmol/L BUN 21 H (9-20) mg/dL Glucose 101 H (74-99) mg/dL
== END 2020-12-02 10:40 | disposition home or self-care (01) | DRG 243 ==
LOC: EC 18:54 → 2SICU 22:29 → 3SCARD 12-01 16:00
PROVIDERS: ADMIT Family Medicine; ATTEND Family Medicine
PROC: 5A1223Z Performance of Cardiac Pacing, Continuous (ICD-10-PCS; principal; 2020-11-29)
PROC: 0JH606Z Insertion of Pacemaker, Dual Chamber into Chest Subcutaneous Tissue and Fascia, Open Approach (ICD-10-PCS; 2020-11-29)
PROC: 02HK3JZ Insertion of Pacemaker Lead into Right Ventricle, Percutaneous Approach (ICD-10-PCS; 2020-11-29)
PROC: 02H63JZ Insertion of Pacemaker Lead into Right Atrium, Percutaneous Approach (ICD-10-PCS; 2020-11-29)
PROC: 3E033XZ Introduction of Vasopressor into Peripheral Vein, Percutaneous Approach (ICD-10-PCS; 2020-11-30)
DX: I44.2 Atrioventricular block, complete (principal); E87.2 Acidosis; E11.9 Type 2 diabetes mellitus without complications; E78.5 Hyperlipidemia, unspecified; E87.8 Other disorders of electrolyte and fluid balance, not elsewhere classified; F02.80 Dementia in other diseases classified elsewhere, unspecified severity, without behavioral disturbance, psychotic disturbance, mood disturbance, and anxiety; J44.9 Chronic obstructive pulmonary disease, unspecified; G47.419 Narcolepsy without cataplexy; M19.90 Unspecified osteoarthritis, unspecified site; M51.36 Other intervertebral disc degeneration, lumbar region; F32.9 Major depressive disorder, single episode, unspecified; K21.9 Gastro-esophageal reflux disease without esophagitis; E66.9 Obesity, unspecified; I25.10 Atherosclerotic heart disease of native coronary artery without angina pectoris; G89.29 Other chronic pain; G30.9 Alzheimer's disease, unspecified; G47.33 Obstructive sleep apnea (adult) (pediatric); Z79.899 Other long term (current) drug therapy; Z79.82 Long term (current) use of aspirin; Z79.02 Long term (current) use of antithrombotics/antiplatelets; Z82.49 Family history of ischemic heart disease and other diseases of the circulatory system; Z86.718 Personal history of other venous thrombosis and embolism; Z87.891 Personal history of nicotine dependence; Z95.1 Presence of aortocoronary bypass graft; Z95.2 Presence of prosthetic heart valve; Z98.61 Coronary angioplasty status; Z86.79 Personal history of other diseases of the circulatory system; I10 Essential (primary) hypertension; I25.2 Old myocardial infarction
CPT/HCPCS: 33208; 33210; 36415; 70450; 71045; 71046; 71275; 80048; 80053; 81003; 83735; 84100; 84484; 85025; 85379; 85610; 85730; 93005; 94640; 94660; 96361; 96374; 96375; 99291

== ENCOUNTER → 2021-11-24 | Outpatient (CLI) | payer MEDICARE ==
--- NOTE | 2021-11-26 07:43 | CA ---
Transthoracic Echo Report Name: Jose Coon Age: 71 Gender: M : 1950 Exam Date: 11/24/2021 16:01 Exam Location: [facility] Ht (in): 72 Wt (lb): 200 Ordering Physician: Mahesh Fried MD Attending/Referring Phys: [id number], Corky [employer]er Corinna Hurley RDCS Procedure CPT: Indications: I35.1 NONRHEUMATIC AORTIC (VALVE) INSUFFICIENCY Cardiac Hx: Technical Quality: Technically difficult study Contrast 1: Total Dose (mL): Contrast 2: Total Dose (mL): MEASUREMENTS (Male / Female) Normal Values 2D ECHO LV Diastolic Diameter PLAX 5.2 cm 4.2 - 5.9 / 3.9 - 5.3 cm LV Systolic Diameter PLAX 4.6 cm IVS Diastolic Thickness 1.3 cm 0.6 - 1.0 / 0.6 - 0.9 cm LVPW Diastolic Thickness 1.5 cm 0.6 - 1.0 / 0.6 - 0.9 cm LV Relative Wall Thickness 0.5 M-MODE Aortic Root Diameter MM 2.7 cm LA Systolic Diameter MM 4.4 cm LA Ao Ratio MM 1.7 MV E Point Septal Separation 0.4 cm DOPPLER AV Peak Velocity 165.3 cm/s AV Peak Gradient 10.9 mmHg AV Mean Velocity 115.2 cm/s AV Mean Gradient 6.0 mmHg AV Velocity Time Integral 32.9 cm LVOT Peak Velocity 108.0 cm/s LVOT Peak Gradient 4.7 mmHg MV Peak Velocity 178.8 cm/s MV Peak Gradient 12.8 mmHg MV Mean Velocity 93.1 cm/s MV Mean Gradient 4.2 mmHg MV Velocity Time Integral 55.7 cm MV Area PHT 2.4 cm??? Mitral E Point Velocity 73.2 cm/s Mitral A Point Velocity 138.8 cm/s Mitral E to A Ratio 0.5 MV Deceleration Time 320.8 ms TR Peak Velocity 261.3 cm/s TR Peak Gradient 27.3 mmHg Right Ventricular Systolic Press 32.3 mmHg FINDINGS Left Ventricle Left ventricular ejection fraction is estimated at 40-45 %. Right Ventricle Right ventricle not well visualized. Right Atrium Normal right atrial size. Left Atrium Normal left atrial size. Mitral Valve Mitral valve not well visualized. Mild-moderate mitral stenosis. Peak gradient 13mmHg, mean gradient of 4.3mmHg. Aortic Valve bioprosthetic aortic valve without stenosis with a peak gradient 11 mmHg, mean gradient 9 mmHg, no paravalvular aortic regurgitation. Tricuspid Valve Tricuspid valve not well visualized. Pulmonic Valve Pulmonic valve not well visualized. Pericardium Normal pericardium. Aorta Normal size aortic root and proximal ascending aorta. CONCLUSIONS Mildly impaired LV function with EF between 40-45% Mild aortic stenosis Normally functioning Prosthetic valve in aortic position Previewed by: Dr. Leeroy Fatima MD (Electronically Signed) Final Date: 26 November 2021 07:41
== END | disposition home or self-care (01) ==
LOC: RADECHMAIN 15:59
PROVIDERS: ATTEND Thoracic Surgery (Cardiothoracic Vascular Surgery)
DX: I35.1 Nonrheumatic aortic (valve) insufficiency (principal)
CPT/HCPCS: 93306

== ENCOUNTER → 2022-02-26 | Outpatient (CLI) | payer MEDICARE ==
[2022-02-26 15:01] LABS: HGB 13.8 g/dL (13.0-17.0); MCH 30.8 pg (27.0-32.0); MCHC 32.1 g/dL (32.0-37.0); Mean Platelet Volume 10.1 fL (9.5-12.2); NRBC Per 100 WBC 0 /100 WBCS (0.0-0.0); Platelet Count 161 X 10*3/uL (140-440); RBC 4.48 X 10*6/uL (4.40-5.60); RDW 13.6 % (11.5-14.5); WBC 6.91 X 10*3/uL (4.50-10.00)
[2022-02-26 15:45] LABS: ALT 19 U/L (10-49); AST 22 U/L (14-35); African American GFR (CKD) 97.9 (60.0-200.0); Albumin 3.9 g/dL (3.8-4.9); Albumin/Globulin Ratio 1.26 (1.60-3.17); Alkaline Phosphatase 92 U/L (41-126); BUN/Creat Ratio 38.33 Ratio (12.00-20.00); Blood Urea Nitrogen 34.5 mg/dL (9.0-27.0); Carbon Dioxide 18.5 mmol/L (20.0-27.5); Chloride 112 mmol/L (96-109); Globulin 3.1 g/dL (1.6-3.3); Glucose 88 mg/dL (70-110); LDL Cholesterol,Calculated 76.9 mg/dL (0.0-131.0); Non-African American GFR(CKD) 84.4 (60.0-200.0); Potassium 4.4 mmol/L (3.5-5.5); Sodium 140 mmol/L (135-145); VLDL Calculation 15.14 mg/dL (5.00-40.00)
== END | disposition home or self-care (01) ==
LOC: LABWHC1 08:52
PROVIDERS: ATTEND Family Medicine
DX: R73.03 Prediabetes (principal)
CPT/HCPCS: 36415; 80053; 80061; 83036; 84443; 85027

== ENCOUNTER 2023-09-17 20:14 | Observation (INO) | payer BC, MEDICARE ==
--- NOTE | 2023-09-17 21:15 | ED ---
Fall HPI - General Chief Complaint: Fall Stated Complaint: Fall Time Seen by Provider: 09/17/23 20:45 Source: patient, EMS Mode of arrival: EMS - History of Present Illness Initial Comments: Patient is a pleasant 77-year-old gentleman past medical history of dementia, presenting today for mechanical trip and fall. Patient's states that he was walking down their 5 steps at home to come and help her with groceries when he called out to her and she found him on the ground a few feet from the steps. Patient's does not think he fell down the stairs but tripped when he got to the bottom of them. He told her that he felt like his right arm was broken. He had an abrasion and bruise to his front forehead, was awake and at baseline upon patient's finding him. No LOC. History is limited by patient's dementia. He is currently out of bathing at his baseline. He denies any neck pain, chest pain, headache, abdominal pain, lower extremity pain. - Related Data Home Medications Medication Instructions Recorded Confirmed Aspirin EC [Ecotrin Low Dose] 81 mg PO DAILY 03/23/16 11/29/20 Escitalopram [Lexapro] 10 mg PO DAILY 03/23/16 11/29/20 Montelukast [Singulair] 10 mg PO HS 03/23/16 11/29/20 Simvastatin [Zocor] 40 mg PO HS 03/23/16 11/29/20 Topiramate [Topamax] 100 mg PO BID 03/23/16 11/29/20 atenoloL [Tenormin] 12.5 mg PO DAILY 10/12/16 11/29/20 Hydrocodone/Acetaminophen [Vicodin 1 tab PO TID PRN 06/24/20 11/29/20 ES 7.5-300 mg] Losartan [Cozaar] 50 mg PO DAILY 06/24/20 11/29/20 Memantine HCl 10 mg PO BID 06/24/20 11/29/20 Fluticasone/Vilanterol [Breo 1 puff INHALATION RT-DAILY 11/29/20 11/29/20 Ellipta 100-25 Mcg Inhaler] Loratadine [Claritin] 10 mg PO HS 11/29/20 11/29/20 modafiniL [Provigil] 100 mg PO BID 11/29/20 11/29/20 Clopidogrel [Plavix] 75 mg PO DAILY 09/18/23 09/18/23 Donepezil [Aricept] 10 mg PO DAILY 09/18/23 09/18/23 Escitalopram [Lexapro] 20 mg PO DAILY 09/18/23 09/18/23 Fluticasone Propion/Salmeterol 2 puff INHALATION RT-BID PRN 09/18/23 09/18/23 [Advair 250-50 Diskus] HYDROcodone/APAP 7.5-325MG [Riley 1 tab PO BID PRN 09/18/23 09/18/23 7.5-325] Imipramine HCl 50 mg PO HS 09/18/23 09/18/23 Ipratropium Durand 0.06%Nasal 1 spray EA NOSTRIL DAILY 09/18/23 09/18/23 [Atrovent Nasal 0.06%] Loratadine [Claritin] 10 mg PO DAILY 09/18/23 09/18/23 Losartan [Cozaar] 50 mg PO DAILY 09/18/23 09/18/23 Memantine [Namenda] 10 mg PO DIRECTED 09/18/23 09/18/23 Montelukast [Singulair] 10 mg PO HS 09/18/23 09/18/23 Rivaroxaban [Xarelto] 20 mg PO HS 09/18/23 09/18/23 Simvastatin [Zocor] 40 mg PO HS 09/18/23 09/18/23 Topiramate 100 mg PO BID 09/18/23 09/18/23 atenoloL [Tenormin] 25 mg PO BID 09/18/23 09/18/23 modafiniL [Provigil] 200 mg PO DAILY 09/18/23 09/18/23 Previous Rx's Medication Instructions Recorded Clopidogrel [Plavix] 75 mg PO DAILY #30 tab 08/15/20 amLODIPine [Norvasc] 5 mg PO DAILY #30 tab 12/02/20 Allergies Allergy/AdvReac Type Severity Reaction Status Date / Time bee pollen Allergy Anaphylaxis Verified 09/20/23 08:49 shrimp Allergy Anaphylaxis Verified 09/20/23 08:49 Review of Systems ROS Statement: Those systems with pertinent positive or pertinent negative responses have been documented in the HPI. ROS Other: All systems not noted in ROS Statement are negative. Limitations: ROS unobtainable due to patients medical condition Past Medical History Past Medical History: No Reported History, Unable to Obtain, Dementia Past Surgical History: Unable to Obtain, Coronary Bypass/CABG Smoking Status: Former smoker Past Alcohol Use History: None Reported Past Drug Use History: None Reported - Past Family History Father Family Medical History: Coronary Artery Disease (CAD) Additional Family Medical History / Comment(s): heart problems Mother Family Medical History: Cancer Additional Family Medical History / Comment(s): Ovarian cancer. General Exam - General Exam Comments Initial Comments: PE: CONSTITUTIONAL: no apparent distress, well appearing SKIN: warm, dry, no jaundice, hives or petechiae, abrasion to mid forehead, small abrasion to the nasal bridge EYES: pupils are equally round, extraocular movements intact without nystagmus, clear conjunctiva, non-icteric sclera HENT: normocephalic, small hematoma and abrasion to the mid forehead moist mucus membranes, oropharynx clear without exudates NECK: Nontender, patient arrives without a c-collar ranging his neck through full range of motion, c-collar applied shortly after arrival PULMONARY: clear to auscultation without wheezes, rhonchi, or rales, normal excursion, no accessory muscle use and no stridor, no chest wall tenderness to palpation CARDIOVASCULAR: regular rate, rhythm, normal S1 and S2. No appreciated murmurs. Strong radial pulses with intact distal perfusion, strong dorsalis pedis pulses bilaterally with intact distal perfusion GASTROINTESTINAL: soft, non-tender, non-distended, no palpable masses, no rebound or guarding LYMPHATICS: no edema in lower extremities MUSCULOSKELETAL: Right proximal upper extremity shortened, swollen, tender to palpation, sensation intact throughout, 2+ radial pulse palpated, no tenderness to palpation of the elbow, wrist, patient is able to flex and extend the elbow through limited ROM 2/2 pain, neurovascularly intact, all other extremities are nontender to palpation and have no gross deformity, no edema, redness, or swelling NEUROLOGIC: _a/o x 2, GCS 15, at baseline, normal mentation and speech. Moves all extremities x 4 without motor or sensory deficit, with exception of RUE as noted above, patient is at baseline oriented to self and place PSYCHIATRIC: _normal mood and affect, pleasantly confused, speech is clear Limitations: no limitations Course Vital Signs 09/17/23 09/17/23 09/17/23 20:20 21:00 22:30 Temperature 97.6 F Pulse Rate 53 L 61 65 Respiratory 20 18 18 Rate Blood Pressure 102/47 92/56 107/44 O2 Sat by Pulse 96 97 95 Oximetry 09/18/23 09/18/23 09/18/23 00:00 01:00 04:00 Temperature Pulse Rate 64 65 60 Respiratory 18 18 20 Rate Blood Pressure 108/60 111/67 114/79 O2 Sat by Pulse 97 98 98 Oximetry 09/18/23 05:00 Temperature Pulse Rate 61 Respiratory 18 Rate Blood Pressure 117/69 O2 Sat by Pulse 97 Oximetry - Reevaluation(s) Reevaluation #1: 09/17/23 22:[address] brain negative for acute process, I see no evidence of hemorrhage, mass or other acute process. CT C-spine negative for fracture or dislocation or malalignment. Read by radiologist as negative. I agree with radiologist interpretation. X-rays reviewed, x-ray right humerus shows 100% displaced angulated midshaft humerus fracture. [facility], discussed with Kenyatta Arellano, request direct call to Dr. Johnson. Will page. Reviewed pelvis and chest x-ray, I see no evidence of fracture, pneumothorax, dislocation or other acute process. Currently pending pending radiologist read Reevaluation #2: Patient placed in coaptation splint and placed in sling. Pain controlled with 2.5 mg IV Valium. Post splint check shows right upper extremity neurovascularly intact. 09/17/23 23:56 Procedures - Orthopedic Splinting/Casting Injury #1 Side: right Upper Extremity Injury Location: shoulder (coaptation splint, sling) Upper Extremity Immobilizer: sling/shoulder immobilizer, synthetic pre-padded splint Additional Comments: Post splint check shows right upper extremity neurovascularly intact, sensation to light touch intact, 2+ radial pulse and less than 2-second capillary refill Medical Decision Making - Medical Decision Making Was pt. sent in by a medical professional or institution (, PA, MATHEMATICS TECHNICIAN, urgent care, hospital, or [facility]...) When possible be specific @ -No Did you speak to anyone other than the patient for history (EMS, parent, family, police, friend...)? What history was obtained from this source @ -Spoke with patient's Did you review nursing and triage notes (agree or disagree)? Why? @ -I reviewed and agree with nursing and triage notes Were old charts reviewed (outside hosp., previous admission, EMS record, old EKG, old radiological studies, urgent care reports/EKG's, [facility] records)? Report findings @ -No old charts to review Differential Diagnosis (chest pain, altered mental status, abdominal pain women, abdominal pain men, vaginal bleeding, weakness, fever, dyspnea, syncope, headache, dizziness, GI bleed, back pain, seizure, CVA, palpatations, mental hea lth, musculoskeletal)? @ -Differential Musculoskeletal Muscular strain, contusion, ligament sprain, fracture, arthritis, bursitis, muscle spasm,... This is not meant to be in all inclusive list X-rays interpreted by me (1pt min.). @ -Please see hospital course CT interpreted by me (1pt min.). @ -Please see hospital course U/S interpreted by me (1pt. min.). @ -None done What testing was considered but not performed or refused? (CT, X-rays, U/S, labs)? Why? @ -As noted below considered CT chest abdomen pelvis due to trip and fall, 77-year-old male however he has no external signs of injury to the chest abdomen or pelvis, no signs of injury to the back, discussed with , using shared decision making she played declined further imaging I feel this is reasonable What meds were considered but not given or refused? Why? @ -None Did you discuss the management of the patient with other professionals (professionals i.e. , PA, MATHEMATICS TECHNICIAN, lab, RT, psych nurse, social work nurse, rehab spec, teacher, registration officer, case fitter)? Give summary @ -Discussed with Dr. Zayas of orthopedics Was smoking cessation discussed for >3mins.? @ -No Was critical care preformed (if so, how long)? @ -No Were there social determinants of health that impacted care today? How? (Homelessness, low income, unemployed, alcoholism, drug addiction, transportation, low edu. Level, literacy, decrease access to med. care, fci, rehab)? @ -No Was there de-escalation of care discussed even if they declined (Discuss DNR or withdrawal of care, Hospice)? DNR status @ -No What co-morbidities impacted this encounter? (DM, HTN, Smoking, COPD, CAD, Cancer, CVA, ARF, Chemo, Hep., AIDS, mental health diagnosis, sleep apnea, morbid obesity)? @ -Dementia Was patient admitted / discharged? Hospital course, mention meds given and route, prescriptions, significant lab abnormalities, going to OR and other pertinent info. @ -Hospital course Patient is a 77-year-old male with past medical history dementia, on Plavix presenting for mechanical trip and fall with right upper extremity injury. On assessment patient has abrasion to the forehead and scratch to the nasal bridge. No epistaxis, no deformity of the nose. deformity, swelling and tenderness to palpation of the proximal right upper extremity. CT brain and C-spine obtained as well as plain films of the right upper extremity chest and pelvis. I did consider obtaining CT chest abdomen pelvis due to patient's fall, discussed this with patient's at bedside, patient does not have any evidence of injuries to the chest abdomen or pelvis, no tenderness palpation of these regions no shortness of breath, no injuries to the back. Patient declined CT chest abdomen pelvis did not feel it is necessary, I feel this is reasonable given absence of injuries to patient's trunk or back. Imaging significant for angulated right humerus fracture. Updated patient and . Discussed with Dr. Zayas, rec's sling, consider coaptation splint, pain control, muscle relaxants, Flexeril or Valium, Riley and follow-up with himself however preferably Dr. Antonio, for ortho trauma. Patient given 2.5 mg valium for splint application. Patient fell asleep shortly after valium admin, respirations unlabored, responsive to sternal rub, 2+ radial pulse, patient O2 sat to 88%, suspect from combination of medication effect and sleep apnea, O2 applied and HOB elevated, coaptation splint applied, post splint check showed RUE neurovascularly intact, patient woke up as splint application was completed, was conversant, returned to baseline, pain controlled, appeared much more comfortable after splint application. Updated . She is concerned as she lives home alone with the patient and he requires quite a bit of assistance getting to the bathroom, standing up, etc and is 300 pounds. She does not feel she can help him perform his activities with his broken humerus. Will discuss with Dr. Vela. of trauma for possible admission. Discussed with Dr. Vela, rec admit ortho, medicine on consult. Discussed with Anju Arellano, accepts admit to ortho. Admission orders placed. Patient admitted in stable condition. Undiagnosed new problem with uncertain prognosis? @ -Yes Drug Therapy requiring intensive monitoring for toxicity (Heparin, Nitro, Ins ulin, Cardizem)? @ -No Were any procedures done? @ Splint application Diagnosis/symptom? @ -Default Acute, or Chronic, or Acute on Chronic? @ -Acute Uncomplicated (without systemic symptoms) or Complicated (systemic symptoms)? @ -Yes Exacerbation, Progression, or Severe Exacerbation? @ -No - Lab Data Result diagrams: 09/18/23 04:30 09/18/23 02:57 Disposition Clinical Impression: Fall, Fracture, humerus closed Disposition: ADMITTED IP TO THIS HOSP
--- NOTE | 2023-09-17 21:59 | CT ---
EXAMINATION TYPE: CT brain cspine wo con CT DLP: 1980 mGycm, Automated exposure control for dose reduction was used. DATE OF EXAM: 09/17/2023 9:51 PM COMPARISON: None. CLINICAL INDICATION:Male, 77 years old with history of Trauma; pt arrives via EMS for fall from stand ing position, suspected right humerus fx pt is on plavix hematoma noted to head A&Ox2 hx dementia, poor historian TECHNIQUE: Brain: Multiple axial CT images of the brain were obtained without IV contrast. Cspine: Axial CT images from the skull base to the inferior aspect of T2 we obtained without intraven ous contrast. Coronal and sagittal reformatted images were also reviewed. . FINDINGS: Brain: Extra-axial spaces: No abnormal extra-axial fluid collections. Ventricular system: Dilatation in proportion to cerebral atrophy. Cerebral parenchyma: Cerebral atrophy. No acute intraparenchymal hemorrhage or mass effect. The [place] -white junction is well differentiated. Scattered hypoattenuating areas are seen within the white mat ter. Cerebellum: Unremarkable. Mass effect: No evidence of midline shift. Intracranial vasculature: unremarkable Soft tissues: Normal. Calvarium/osseous structures: No depressed skull fracture. Paranasal sinuses and mastoid air cells: Mild scattered mucosal thickening and or secretions. Visualized orbits: Bilateral aphakia Cervical spine: Fracture: None. Osseous structures: Multilevel degenerative disc disease changes with endplate spurring and disc oste ophyte complex's. Ankylosis of the C2-C3 right lateral facets. Vertebral alignment: Within normal limits. Spinal canal/Neural Foramina: No evidence of significant spinal canal narrowing. No evidence for sign ificant neural foraminal stenosis. Neck soft tissues: Prevertebral soft tissues are within normal limits. Other: The airway is patent. The lung apices are clear. IMPRESSION: 1. No acute intracranial process. 2. Nonspecific white matter changes, likely secondary to chronic small vessel ischemic disease. 3. No evidence of cervical spine fracture. 4. Moderate multilevel degenerative disc disease.
[2023-09-17] MEDS: MORPHINE SULFATE 4 MG/ML SYRINGE IVP STA (22:20)
[2023-09-17] MEDS: ONDANSETRON 4 MG/2 ML VIAL IVP STA (22:22)
--- NOTE | 2023-09-17 22:32 | XR ---
EXAM: XR Right Humerus, 2 or More Views CLINICAL HISTORY: ITS.REASON XR Reason: trip and fall TECHNIQUE: Frontal and lateral views of the right humerus. COMPARISON: No relevant prior studies available. FINDINGS: Bones/joints: Displaced right proximal humerus periprosthetic fracture. Right reversed total shoulder arthroplasty. Spiral fracture of the right humerus shaft proximally. The distal fracture fragment is displaced and angulated laterally. No dislocation. Soft tissues: Soft tissue swelling at the site of the fracture. IMPRESSION: Displaced right proximal humerus periprosthetic fracture.
[2023-09-17] MEDS: ACETAMINOPHEN IV (For NPO) 1,000 MG in EMPTY BAG 1 BAG IVPB STA (22:33)
--- NOTE | 2023-09-17 22:36 | XR ---
EXAM: XR Pelvis, 1 or 2 Views CLINICAL HISTORY: ITS.REASON XR Reason: trip and fall TECHNIQUE: Frontal view of the pelvis. COMPARISON: No relevant prior studies available. FINDINGS: Bones/joints: Degenerative changes in the lumbar spine and hips. No acute fracture. No dislocation. Soft tissues: Unremarkable. Vasculature: Clips in the pelvis. Calcified pelvic phleboliths. IMPRESSION: No acute findings in the pelvis.
--- NOTE | 2023-09-17 22:37 | XR ---
EXAM: XR Chest, 1 View CLINICAL HISTORY: ITS.REASON XR Reason: trip and fall TECHNIQUE: Frontal view of the chest. COMPARISON: No relevant prior studies available. FINDINGS: Lungs: No consolidation. Pleural space: Elevated left hemidiaphragm. Blunting of left costophrenic angle, small pleural effusion versus scarring. Heart: No cardiomegaly. Bones/joints: Right reverse total shoulder arthroplasty. Tubes, lines and devices: Left chest wall pacer. IMPRESSION: Elevated left hemidiaphragm. Blunting of left costophrenic angle, small pleural effusion versus scarring.
[2023-09-18] MEDS ORDERED: NALOXONE 0.4 MG/ML 1 ML VIAL IV PRN (00:14)
[2023-09-18] MEDS: DIPH,PERTUS(ACELL)TETVAC-LF 0.5 ML VIAL IM ONE (00:51)
[2023-09-18 03:23] LABS: ALT 18 U/L (4-49); African American GFR (CKD) >90 (>60 ml/min/1.73 sqM); Albumin/Globulin Ratio 1.1; Anion Gap 7 mmol/L; Blood Urea Nitrogen 30 mg/dL (9-20); Calcium 8.7 mg/dL (8.4-10.2); Carbon Dioxide 19 mmol/L (22-30); Chloride 112 mmol/L (98-107); Globulin 3.2 g/dL; Glucose 122 mg/dL (74-99); Non-African American GFR(CKD) 85 (>60 ml/min/1.73 sqM); Sodium 138 mmol/L (137-145); Total Bilirubin 0.8 mg/dL (0.2-1.3)
[2023-09-18 03:24] LABS: AST 38 U/L (17-59); Albumin 3.5 g/dL (3.5-5.0); Alkaline Phosphatase 76 U/L (38-126); Potassium 4.8 mmol/L (3.5-5.1); Total Protein 6.7 g/dL (6.3-8.2)
[2023-09-18 05:09] LABS: Basophils % (A) 0 %; Eosinophils % (A) 0 %; HGB 13.4 gm/dL (13.0-17.5); Lymphocytes # (A) 1.2 k/uL (1.0-4.8); Lymphocytes % (A) 12 %; MCH 32.2 pg (25.0-35.0); MCHC 31.3 g/dL (31.0-37.0); MCV 102.8 fL (80.0-100.0); Macrocytosis Slight; Mean Platelet Volume 7.6; Monocytes # (A) 0.7 k/uL (0-1.0); Monocytes % (A) 7 %; Neutrophils # (A) 8.1 k/uL (1.3-7.7); Neutrophils % (A) 79 %; Platelet Count 187 k/uL (150-450); RBC 4.18 m/uL (4.30-5.90); RDW 13.4 % (11.5-15.5); WBC 10.2 k/uL (3.8-10.6)
[2023-09-18] MEDS: HYDROmorphone 0.5 MG/0.5 ML SYRINGE IVP STA (06:00)
[2023-09-18] MEDS: fentaNYL (PF) 50 MCG/ML 2 ML AMP IVP STA (06:01)
[2023-09-18] MEDS: FAMOTIDINE 20 MG TAB PO SCH (09:30)
[2023-09-18] MEDS: ACETAMINOPHEN TAB 325 MG TAB PO PRN (09:31)
--- NOTE | 2023-09-18 11:13 | P.PN ---
Progress Note - Text Progress Note Date: 09/17/23 Delayed Charting. Spoke to ED PA around 11:30 PM 09/17/23. Discussed pt with Right humeral fr acture around a prosthesis. Recommended splint immobilization and sling. If pt could go home then follow up with myself early next week. If pt cannot go home then needed to be transferred to ortho trauma at [facility]. ED then splinted pt and subsequently spoke to my INSTRUMENT PANEL ASSEMBLER who reiterated my orders. We recommended if the patient needed to be admitted that he be transferred to [facility] for higher level of ortho trauma care. Pt was then admitted to my service without notice to me. He will be transferred to [facility] for Orthopedic Trauma treatment as he has a surgical fracture of the right humerus around a prosthesis.
--- NOTE | 2023-09-18 11:56 | P.CONS ---
History of Present Illness - Reason for Consult Consult date: 09/18/23 medical management Requesting physician: Cat Little - Chief Complaint Right humerus fracture - History of Present Illness This is a 77-year-old male with medical history of dementia advanced and coronary artery disease with prior CABG, COPD, hypertension, Dementia, sleep apnea with CPAP use, pacemaker. patient presents to the hospital status post fall and found to have a right proximal humerus fracture around a prosthesis patient does have a prior right arthroplasty of that shoulder. Patient states he was helping bring in groceries and had a trip and fall, lives at home with his . He has no chest pain, no shortness of breath. Alert x 1-2. Patient was admitted to orthopedics with a medical consultation. REVIEW OF SYSTEMS: CONSTITUTIONAL: No fever, no malaise, no fatigue. HEENT: No recent visual problems or hearing problems. Denied any sore throat. CARDIOVASCULAR: No chest pain, orthopnea, PND, no palpitations, no syncope. PULMONARY: No shortness of breath, no cough, no hemoptysis. GASTROINTESTINAL: No diarrhea, no nausea, no vomiting, no abdominal pain. NEUROLOGICAL: No headaches, no weakness, no numbness. HEMATOLOGICAL: Denies any bleeding or petechiae. GENITOURINARY: Denies any burning micturition, frequency, or urgency. MUSCULOSKELETAL/RHEUMATOLOGICAL: Denies any joint pain, swelling, or any muscle pain. ENDOCRINE: Denies any polyuria or polydipsia. The rest of the 14-point review of systems is negative. PHYSICAL EXAMINATION: GENERAL: The patient is alert and oriented x3, not in any acute distress. Well developed, well nourished. HEENT: Pupils are round and equally reacting to light. EOMI. No scleral icterus. No conjunctival pallor. Normocephalic, atraumatic. No pharyngeal erythema. No thyromegaly. CARDIOVASCULAR: S1 and S2 present. No murmurs, rubs, or gallops. PULMONARY: Chest is clear to auscultation, no wheezing or crackles. ABDOMEN: Soft, nontender, nondistended, normoactive bowel sounds. No palpable or ganomegaly. MUSCULOSKELETAL: No joint swelling or deformity. EXTREMITIES: No cyanosis, clubbing, or pedal edema. NEUROLOGICAL: Gross neurological examination did not reveal any focal deficits. SKIN: No rashes. Right Arm is in sling Assessment and Plan Mechanical fall with right humerus fracture, current prosthesis currently in soft sling pending evaluation by orthopedics Hx of coronary artery disease with prior coronary artery bypass grafting and PCI History of permanent pacemaker History of hypertension History of COPD History of sleep apnea with CPAP use History of Dementia GI prophylaxis DVT prophylaxis Full Code Plan Orthopedics has been consulted for evaluation patient remains in a soft sling at this time , Tylenol and [place] on board for pain management. No active home medications are listed Patient will likely need PT OT and subacute rehab Will be given DVT prophylaxis supportive care Recommend to avoid the use of narcotics if possible secondary to advanced age and dementia if patient will require any type of surgical intervention he will need cardiac clearance. The impression and plan of care has been dictated by Cata Garcia Nurse Practitioner as directed. Dr. Kennedi MD I have performed a history and physical examination and medical decision making of this patient, discussed the same with the dictator, and agree with the dictators assessment and plan as written, documented as a scribe. Based on total visit time, I have performed more than 50% of this visit. Past Medical History Past Medical History: No Reported History, Unable to Obtain, Dementia Past Surgical History: Unable to Obtain, Coronary Bypass/CABG Smoking Status: Former smoker Medications and Allergies Allergies Allergy/AdvReac Type Severity Reaction Status Date / Time shrimp Allergy swelling, Verified 09/18/23 11:40 itchy Physical Exam Vitals: Vital Signs Temp Pulse Pulse Resp BP BP Pulse Ox 09/18/23 07:12 97.6 F 62 17 114/63 97 09/18/23 06:02 97.4 F L 62 18 102/58 96 09/18/23 05:00 61 18 117/69 97 09/18/23 04:00 60 20 114/79 98 09/18/23 01:00 65 18 111/67 98 09/18/23 00:00 64 18 108/60 97 09/17/23 22:30 65 18 107/44 95 09/17/23 21:00 61 18 92/56 97 09/17/23 20:20 97.6 F 53 L 20 102/47 96 Intake and Output 09/17/23 09/18/23 09/18/23 22:59 06:59 14:59 Other: Weight 113.398 kg 113.398 kg Results CBC & Chem 7: 09/18/23 04:30 09/18/23 02:57 Labs: Abnormal Lab Results - Last 24 Hours (Table) 09/18/23 09/18/23 Range/Units 02:57 04:30 RBC 4.18 L (4.30-5.90) m/uL MCV 102.8 H (80.0-100.0) fL Neutrophils # 8.1 H (1.3-7.7) k/uL Chloride 112 H (98-107) mmol/L Carbon Dioxide 19 L (22-30) mmol/L BUN 30 H (9-20) mg/dL Glucose 122 H (74-99) mg/dL
[2023-09-18] MEDS: HYDROcodone/APAP 5-325MG 1 EACH TAB PO PRN (15:36)
[2023-09-18 16:48] VITALS: BP 118/70; PULSE 71; RESP 16; TEMP 98.6
[2023-09-18] MEDS ORDERED: HEPARIN SODIUM,PORCINE 5,000 UNIT/ML 1 ML VIAL SQ SCH (21:00)
== END 2023-09-18 20:53 | disposition critical access hospital (66) ==
LOC: EC 20:14 → 4SSUR 09-18 00:19 → EDBD 09-18 00:19 → MERGE 09-18 00:19 → 4SSUR 09-18 05:28
PROVIDERS: ADMIT Orthopaedic Surgery; ATTEND Orthopaedic Surgery
DX: M97.31XA Periprosthetic fracture around internal prosthetic right shoulder joint, initial encounter (principal); F03.90 Unspecified dementia, unspecified severity, without behavioral disturbance, psychotic disturbance, mood disturbance, and anxiety; S00.83XA Contusion of other part of head, initial encounter; W01.0XXA Fall on same level from slipping, tripping and stumbling without subsequent striking against object, initial encounter; I10 Essential (primary) hypertension; I25.10 Atherosclerotic heart disease of native coronary artery without angina pectoris; J44.9 Chronic obstructive pulmonary disease, unspecified; Y92.009 Unspecified place in unspecified non-institutional (private) residence as the place of occurrence of the external cause; G47.30 Sleep apnea, unspecified; Z79.82 Long term (current) use of aspirin; Z79.02 Long term (current) use of antithrombotics/antiplatelets; Z79.51 Long term (current) use of inhaled steroids; Z79.01 Long term (current) use of anticoagulants; Z79.899 Other long term (current) drug therapy; Z91.030 Bee allergy status; Z91.013 Allergy to seafood; Z87.891 Personal history of nicotine dependence; Z95.1 Presence of aortocoronary bypass graft; Z95.0 Presence of cardiac pacemaker
CPT/HCPCS: 90471; 96374; 96375; 99285; 80053; 85025; 72170; 73060; 71045; 72125; 70450; 90715; G0378; J2270; J3360; J2405; J0131

== ENCOUNTER 2023-11-16 19:59 | Inpatient (IN) | payer MEDICARE ==
--- NOTE | 2023-11-16 21:15 | ED ---
Upper Extremity HPI - General Source: patient, EMS, RN notes reviewed Mode of arrival: EMS Limitations: no limitations <Lizbet Romero - Last Filed: 11/16/23 22:55> <Franko Galarza - Last Filed: 11/23/23 06:57> - General Chief Complaint: Extremity Injury, Upper Stated Complaint: Infection R Elbow Time Seen by Provider: 11/16/23 20:10 - History of Present Illness Initial Comments: 73-year-old male with dementia, Alzheimer's, hypertension, and hyperlipidemia sent by [facility] for right elbow infection. Patient states he has been antibiotics for several weeks, however reports infection is worsening. Denies limited range of motion of elbow. [facility], he has been taking oral Keflex for right arm infection. He was sent in for CT right arm to rule out underlying abscess as well as IV antibiotics. Denies fever, chills, nausea, vomiting. Denies history of diabetes. (Lizbet Romero) - Related Data Home Medications Medication Instructions Recorded Confirmed Topiramate [Topamax] 100 mg PO BID 03/23/16 11/17/23 Clopidogrel [Plavix] 75 mg PO DAILY@79909/18/23 11/17/23 Donepezil [Aricept] 10 mg PO DAILY@79909/18/23 11/17/23 Escitalopram [Lexapro] 10 mg PO DAILY@79909/18/23 11/17/23 Fluticasone Propion/Salmeterol 1 puff INHALATION RT-BID@799,199909/18/23 11/17/23 [Advair 250-50 Diskus] Memantine [Namenda] 10 mg PO BID 09/18/23 11/17/23 Montelukast [Singulair] 10 mg PO HS@199909/18/23 11/17/23 Rivaroxaban [Xarelto] 20 mg PO DAILY@159909/18/23 11/17/23 Simvastatin [Zocor] 40 mg PO DAILY@159909/18/23 11/17/23 atenoloL [Tenormin] 25 mg PO DAILY@79909/18/23 11/17/23 modafiniL [Provigil] 200 mg PO DAILY@79909/18/23 11/17/23 Acetaminophen Tab [Tylenol] 650 mg PO Q4H PRN 11/17/23 11/17/23 Ergocalciferol (Vitamin D2) 1,250 mcg PO TU@79911/17/23 11/17/23 [Drisdol (50,000 Iu)] Imipramine HCl [Tofranil] 50 mg PO HS@199911/17/23 11/17/23 Ipratropium-Albuterol Nebulize 3 ml INHALATION RT-Q4H PRN 11/17/23 11/17/23 [Duoneb 0.5 mg-3 mg/3 ml Soln] Naloxone HCl [Narcan] 4 mg NASAL ONCE PRN 11/17/23 11/17/23 Pantoprazole Sodium [Protonix] 40 mg PO DAILY@79911/17/23 11/17/23 Sennosides/Docusate Sodium 1 tab PO DAILY PRN 11/17/23 11/17/23 [Senna-S 8.6-50 mg Tablet] Sennosides/Docusate Sodium 1 tab PO DAILY@79911/17/23 11/17/23 [Senna-S 8.6-50 mg Tablet] diphenhydrAMINE [Benadryl] 25 mg PO Q6H PRN 11/17/23 11/17/23 methocarbamoL [Robaxin-750] 750 mg PO Q12H PRN 11/17/23 11/17/23 polyethylene glycoL 3350 [Miralax] 17 gm PO Q12H PRN 11/17/23 11/17/23 Previous Rx's Medication Instructions Recorded Cephalexin [Keflex] 500 mg PO Q6HR 7 Days #28 cap 11/19/23 HYDROcodone/APAP 7.5-325MG [[place] 1 tab PO Q8H PRN #4 tab 11/19/23 7.5-325] Nystatin 100,000Unit/gm Cream 1 applic TOPICAL BID 7 Days #1 each 11/19/23 [Mycostatin Cream] Triamcinolone 0.1% Cream [Kenalog 1 applic TOPICAL BID #1 each 11/19/23 0.1% Cream] Allergies Allergy/AdvReac Type Severity Reaction Status Date / Time bee pollen Allergy Anaphylaxis Verified 09/20/23 08:49 shrimp Allergy Anaphylaxis Verified 09/20/23 08:49 Review of Systems ROS Other: All systems not noted in ROS Statement are negative. <Lizbet Romero - Last Filed: 11/16/23 22:55> ROS Other: All systems not noted in ROS Statement are negative. <Franko Galarza - Last Filed: 11/23/23 06:57> ROS Statement: Those systems with pertinent positive or pertinent negative responses have been documented in the HPI. Past Medical History Past Medical History: Asthma, Coronary Artery Disease (CAD), Dementia, GERD/Reflux, Osteoarthritis (OA) Additional Past Medical History / Comment(s): Anemia History of Any Multi-Drug Resistant Organisms: None Reported Past Surgical History: Unable to Obtain, Coronary Bypass/CABG Additional Past Surgical History / Comment(s): Right shoulder, Pacemaker Past Anesthesia/Blood Transfusion Reactions: No Reported Reaction Date of Last Stent Placement:: 2009 Type of Cardiac Device: Permanent Pacemaker Device Placement Date:: 2020 Past Psychological History: Anxiety, Depression Past Alcohol Use History: None Reported, Rare - Past Family History Father Family Medical History: Coronary Artery Disease (CAD) Additional Family Medical History / Comment(s): heart problems Mother Family Medical History: Cancer Additional Family Medical History / Comment(s): Ovarian cancer. <Lizbet Romero - Last Filed: 11/16/23 22:55> General Exam Limitations: no limitations General appearance: alert, in no apparent distress Head exam: Present: atraumatic, normocephalic, normal inspection Respiratory exam: Present: normal lung sounds bilaterally. Absent: respiratory distress, wheezes, rales, rhonchi, stridor Cardiovascular Exam: Present: regular rate, normal rhythm, normal heart sounds. Absent: systolic murmur, diastolic murmur, rubs, gallop, clicks Right Shoulder Exam: Present: normal inspection, full ROM. Absent: tenderness, swelling Upper Arm exam: Present: full ROM, tenderness, swelling. Absent: normal inspection (Diffuse indurated erythema from ventral aspect of mid bicep extending to mid forearm. No fluctuant masses or purulence. Full range of motion of elbow.) Elbow exam: Present: full ROM, tenderness, swelling. Absent: normal inspection Forearm Wrist exam: Present: full ROM, tenderness. Absent: normal inspection, swelling, abrasion Hand Wrist exam: Present: normal inspection, full ROM. Absent: tenderness, swelling, abrasion Neurological exam: Present: alert, oriented X3 Psychiatric exam: Present: normal affect, normal mood Skin exam: Present: warm, dry, intact, normal color. Absent: rash <Lizbet Romero - Last Filed: 11/16/23 22:55> Course Vital Signs 11/16/23 11/16/23 11/17/23 20:01 23:15 01:39 Temperature 97.8 F 98.3 F 98.0 F Pulse Rate 66 74 Pulse Rate [ 72 Pulse Oximetery ] Respiratory 18 16 16 Rate Blood Pressure 123/71 126/73 Blood Pressure 144/63 [Left Arm] O2 Sat by Pulse 98 96 97 Oximetry 11/17/23 11/17/23 11/17/23 08:38 12:30 15:56 Temperature 98.9 F 98.8 F 98.6 F Pulse Rate 66 64 68 Pulse Rate [ Pulse Oximetery ] Respiratory 22 20 20 Rate Blood Pressure 132/75 117/63 136/83 Blood Pressure [Left Arm] O2 Sat by Pulse 96 96 97 Oximetry Medical Decision Making - Lab Data Result diagrams: 11/16/23 21:59 <Lizbet Romero - Last Filed: 11/16/23 22:55> - Lab Data Result diagrams: 11/19/23 04:08 11/19/23 04:08 <Franko Galarza - Last Filed: 11/23/23 06:57> - Medical Decision Making Was pt. sent in by a medical professional or institution (EUGENIO Cardoso, STORE PRODUCT DEMONSTRATOR, urgent care, hospital, or usp...) When possible be specific @ -Sent by [facility] for right arm cellulitis Did you speak to anyone other than the patient for history (EMS, parent, family, police, friend...)? What history was obtained from this source @ -No Did you review nursing and triage notes (agree or disagree)? Why? @ -I reviewed and agree with nursing and triage notes Were old charts reviewed (outside hosp., previous admission, EMS record, old EKG, old radiological studies, urgent care reports/EKG's, usp records)? Report findings @ -[facility] transfer forms were reviewed. Differential Diagnosis (chest pain, altered mental status, abdominal pain women, abdominal pain men, vaginal bleeding, weakness, fever, dyspnea, syncope, headache, dizziness, GI bleed, back pain, seizure, CVA, palpatations, mental health, musculoskeletal)? @ -Differential Musculoskeletal Muscular strain, contusion, ligament sprain, fracture, arthritis, septic arthritis, bursitis, cellulitis, muscle spasm, nerve compression, DVT, arterial occlusion, herpes zoster, electrolyte abnormality, tumor.... This is not meant to be in all inclusive list EKG interpreted by me (3pts min.). @ -None X-rays interpreted by me (1pt min.). @ -None done CT interpreted by me (1pt min.). @ -CT right arm pending at time of admission U/S interpreted by me (1pt. min.). @ -None done What testing was considered but not performed or refused? (CT, X-rays, U/S, labs)? Why? @ -None What meds were considered but not given or refused? Why? @ -None Did you discuss the management of the patient with other professionals (professionals i.e. , PA, STORE PRODUCT DEMONSTRATOR, lab, RT, psych nurse, social insurance analyst, ethernet network architect, teacher, police officer, rehabilitation case coordinator)? Give summary @ -I spoke with Dr. Fernández who accepts admission at this time for right arm cellulitis. Recommends clindamycin and ID consult Was smoking cessation discussed for >3mins.? @ -No Was critical care preformed (if so, how long)? @ -No Were there social determinants of health that impacted care today? How? (Homelessness, low income, unemployed, alcoholism, drug addiction, transportation, low edu. Level, literacy, decrease access to med. care, fpc, rehab)? @ -No Was there de-escalation of care discussed even if they declined (Discuss DNR or withdrawal of care, Hospice)? DNR status @ -No What co-morbidities impacted this encounter? (DM, HTN, Smoking, COPD, CAD, Cancer, CVA, ARF, Chemo, Hep., AIDS, mental health diagnosis, sleep apnea, morbid obesity)? @ -None Was patient admitted / discharged? Hospital course, mention meds given and route, prescriptions, significant lab abnormalities, going to OR and other pertinent info. @ -Was admitted. This is a 73-year-old male sent from [facility] for right arm infection. He has been on a course of Keflex with worsening of symptoms. Patient is afebrile, nontachycardic. Physical examination reveals cellulitis and ventral aspect of right arm extending from bicep to forearm. Full range of motion of elbow joint. Blood cultures taken, patient started on IV antibiotics. CBC pending, CMP unremarkable, CRP 3.1. Discussed case with Dr. Fernández who accepts admission at this time for right arm cellulitis with failed outpatient treatment. He recommends clindamycin and ID consult. CT right arm pending at time of admission. Case was discussed with my ED attending Dr. Galarza. Patient is agreeable to plan. Undiagnosed new problem with uncertain prognosis? @ -No Drug Therapy requiring intensive monitoring for toxicity (Heparin, Nitro, Insu brain, Cardizem)? @ -No Were any procedures done? @ -No Diagnosis/symptom? @ -Right arm cellulitis Acute, or Chronic, or Acute on Chronic? @ -Acute Uncomplicated (without systemic symptoms) or Complicated (systemic symptoms)? @ -Uncomplicated Side effects of treatment? @ -No Exacerbation, Progression, or Severe Exacerbation? @ -No Poses a threat to life or bodily function? How? (Chest pain, USA, ID, pneumonia, PE, COPD, DKA, ARF, appy, cholecystitis, CVA, Diverticulitis, Homicidal, Suicidal, threat to staff... and all critical care pts) @ -Possibly (Lizbet Romero) - Lab Data Lab Results 11/16/23 11/16/23 11/16/23 Range/Units 21:59 21:59 23:27 WBC 6.9 (3.8-10.6) k/uL RBC 3.79 L (4.30-5.90) m/uL Hgb 12.0 L (13.0-17.5) gm/dL Hct 37.4 L (39.0-53.0) % MCV 98.6 (80.0-100.0) fL MCH 31.6 (25.0-35.0) pg MCHC 32.0 (31.0-37.0) g/dL RDW 13.7 (11.5-15.5) % Plt Count 175 (150-450) k/uL MPV 7.8 Immature Gran % (Auto) % Absolute Nucleated RBC % Neutrophils % 62 % Lymphocytes % 19 % Monocytes % 12 % Eosinophils % 4 % Basophils % 1 % Immature Gran # (0.00-0.04) X 10*3/uL Neutrophils # 4.3 (1.3-7.7) k/uL Lymphocytes # 1.3 (1.0-4.8) k/uL Monocytes # 0.9 (0-1.0) k/uL Eosinophils # 0.3 (0-0.7) k/uL Basophils # 0.1 (0-0.2) k/uL NRBC/100 WBC Diff (0.00-0.01) X 10*3/uL Sodium 139 (137-145) mmol/L Potassium 5.0 (3.5-5.1) mmol/L Chloride 110 H (98-107) mmol/L Carbon Dioxide 22 (22-30) mmol/L Anion Gap 7 mmol/L BUN 18 (9-20) mg/dL Creatinine 0.93 (0.66-1.25) mg/dL Est GFR (CKD-EPI) (>=60) Est GFR (CKD-EPI)AfAm >90 (>60 ml/min/1.73 sqM) Est GFR (CKD-EPI)NonAf 80 (>60 ml/min/1.73 sqM) BUN/Creatinine Ratio (12.00-20.00) Ratio Glucose 94 (74-99) mg/dL Plasma Lactic Acid Juan Jose 1.0 (0.7-2.0) mmol/L Calcium 9.0 (8.4-10.2) mg/dL Total Bilirubin 0.7 (0.2-1.3) mg/dL AST 35 (17-59) U/L ALT 12 (4-49) U/L Alkaline Phosphatase 99 (38-126) U/L C-Reactive Protein 3.1 H (<1.0) mg/dL Total Protein 6.7 (6.3-8.2) g/dL Albumin 3.3 L (3.5-5.0) g/dL 11/19/23 11/19/23 Range/Units 04:08 04:08 WBC 8.91 (3.8-10.6) k/uL RBC 4.16 L (4.30-5.90) m/uL Hgb 12.7 L (13.0-17.5) gm/dL Hct 40.3 (39.0-53.0) % MCV 96.9 (80.0-100.0) fL MCH 30.5 (25.0-35.0) pg MCHC 31.5 L (31.0-37.0) g/dL RDW 13.3 (11.5-15.5) % Plt Count 237 (150-450) k/uL MPV 9.7 Immature Gran % (Auto) 0.40 % Absolute Nucleated RBC 0 % Neutrophils % 67.0 % Lymphocytes % 18.3 % Monocytes % 8.9 % Eosinophils % 4.8 % Basophils % 0.6 % Immature Gran # 0.04 (0.00-0.04) X 10*3/uL Neutrophils # 5.97 (1.3-7.7) k/uL Lymphocytes # 1.63 (1.0-4.8) k/uL Monocytes # 0.79 (0-1.0) k/uL Eosinophils # 0.43 H (0-0.7) k/uL Basophils # 0.05 (0-0.2) k/uL NRBC/100 WBC Diff 0 (0.00-0.01) X 10*3/uL Sodium 141 (137-145) mmol/L Potassium 3.9 (3.5-5.1) mmol/L Chloride 110 H (98-107) mmol/L Carbon Dioxide 20.6 L (22-30) mmol/L Anion Gap 10.40 mmol/L BUN 18.7 (9-20) mg/dL Creatinine 1.1 (0.66-1.25) mg/dL Est GFR (CKD-EPI) 70 (>=60) Est GFR (CKD-EPI)AfAm (>60 ml/min/1.73 sqM) Est GFR (CKD-EPI)NonAf (>60 ml/min/1.73 sqM) BUN/Creatinine Ratio 17.00 (12.00-20.00) Ratio Glucose 90 (74-99) mg/dL Plasma Lactic Acid Juan Jose (0.7-2.0) mmol/L Calcium 8.7 (8.4-10.2) mg/dL Total Bilirubin (0.2-1.3) mg/dL AST (17-59) U/L ALT (4-49) U/L Alkaline Phosphatase (38-126) U/L C-Reactive Protein (<1.0) mg/dL Total Protein (6.3-8.2) g/dL Albumin (3.5-5.0) g/dL Disposition Time of Disposition: 23:28 <Lizbet Romero - Last Filed: 11/16/23 22:55> <Franko Galarza - Last Filed: 11/23/23 06:57> Clinical Impression: Cellulitis of right arm Disposition: ADMITTED IP TO THIS HOSP Condition: Stable
[2023-11-16 22:34] LABS: ALT 12 U/L (4-49); African American GFR (CKD) >90 (>60 ml/min/1.73 sqM); Anion Gap 7 mmol/L; Blood Urea Nitrogen 18 mg/dL (9-20); C Reactive Protein 3.1 mg/dL (<1.0); Carbon Dioxide 22 mmol/L (22-30); Chloride 110 mmol/L (98-107); Glucose 94 mg/dL (74-99); Non-African American GFR(CKD) 80 (>60 ml/min/1.73 sqM); Sodium 139 mmol/L (137-145)
[2023-11-16 22:40] LABS: AST 35 U/L (17-59); Albumin 3.3 g/dL (3.5-5.0); Alkaline Phosphatase 99 U/L (38-126); Total Bilirubin 0.7 mg/dL (0.2-1.3); Total Protein 6.7 g/dL (6.3-8.2)
[2023-11-16] MEDS ORDERED: ONDANSETRON 4 MG/2 ML VIAL IVP PRN (23:15)
[2023-11-16] MEDS ORDERED: HYDROcodone/APAP 5-325MG 1 EACH TAB PO PRN (23:15)
[2023-11-16] MEDS ORDERED: NALOXONE 0.4 MG/ML 1 ML VIAL IV PRN (23:15)
[2023-11-17 00:02] LABS: Basophils # (A) 0.1 k/uL (0-0.2); Basophils % (A) 1 %; Eosinophils # (A) 0.3 k/uL (0-0.7); Eosinophils % (A) 4 %; HCT 37.4 % (39.0-53.0); Lymphocytes # (A) 1.3 k/uL (1.0-4.8); Lymphocytes % (A) 19 %; MCH 31.6 pg (25.0-35.0); MCV 98.6 fL (80.0-100.0); Mean Platelet Volume 7.8; Monocytes # (A) 0.9 k/uL (0-1.0); Monocytes % (A) 12 %; Neutrophils # (A) 4.3 k/uL (1.3-7.7); Neutrophils % (A) 62 %; Platelet Count 175 k/uL (150-450); RBC 3.79 m/uL (4.30-5.90); RDW 13.7 % (11.5-15.5); WBC 6.9 k/uL (3.8-10.6)
[2023-11-17] MEDS: CLINDAMYCIN 300 MG in DEXTROSE 5% IN WATER 50 ML IVPB STA (00:10)
--- NOTE | 2023-11-17 00:53 | CT ---
EXAMINATION TYPE: CT upper extremity RT w con DATE OF EXAM: 11/17/2023 COMPARISON: None. HISTORY: Pt arrives from [facility] with worsening Right elbow infection. On ABX. Best possible, pt unable to bring up RT arm for scan. CT DLP: 6115.3 mGycm Automated exposure control for dose reduction was used. CONTRAST: Performed with IV Contrast, patient injected with 100 mL of Isovue 300. FINDINGS: Susceptibility artifact from surgical change in the right shoulder and proximal humerus is noted. Sub optimal study as entire right elbow is not included. There is mild to moderate ill-defined fluid and fat stranding in the subcutaneous fat of the distal humerus and proximal forearm. No definitive well- formed fluid collection or abscess identified. There is stent graft in the aortic root from aVR repair. Pacemaker wires are partially imaged. There is central simple thin-walled cyst in the right kidney. There is AAA up to 3.8 cm AP diameter axial i mage 151. IMPRESSION: There is soft tissue fat stranding or acute cellulitis. No definitive focal drainable abs cess but suboptimal study as entire elbow is not included in field of view. [facility], , 11/17/2023 12:50 AM
[2023-11-17] MEDS: MORPHINE SULFATE 4 MG/ML SYRINGE IV PRN (03:50)
[2023-11-17] MEDS ORDERED: SENNOSIDES-DOCUSATE SODIUM 1 EACH TAB PO PRN (10:38)
[2023-11-17] MEDS ORDERED: methocarbamoL 750 MG TAB PO PRN (10:40)
[2023-11-17] MEDS ORDERED: polyethylene glycoL 3350 17 GM POWD.PACK PO PRN (10:40)
[2023-11-17] MEDS: CLOPIDOGREL 75 MG TAB PO SCH (11:05)
[2023-11-17] MEDS: MEMANTINE 10 MG TAB PO SCH (11:05)
[2023-11-17] MEDS: ESCITALOPRAM 10 MG TAB PO SCH (11:05)
[2023-11-17] MEDS: atenoloL 25 MG TAB PO SCH (11:05)
[2023-11-17] MEDS: TOPIRAMATE 100 MG TAB PO SCH (11:05)
[2023-11-17] MEDS: PANTOPRAZOLE 40 MG TABLET PO SCH (11:05)
[2023-11-17] MEDS: SYMBICORT 80-4.5 MCG INHALER INHALATION SCH (12:27)
[2023-11-17] MEDS: NYSTAT-TRIAMCIN 100,000-0.1 UNIT/GM-% CREAM 30 GM TUBE TOPICAL SCH (12:57)
[2023-11-17] MEDS: TRIAMCINOLONE 0.1% CREAM 80 GM TUBE TOPICAL SCH (13:45)
[2023-11-17] MEDS: NYSTATIN 100,000UNIT/GM CREAM 30 GM TUBE TOPICAL SCH (13:46)
[2023-11-17] MEDS: RIVAROXABAN 20 MG TAB PO SCH (15:54)
[2023-11-17] MEDS: ATORVASTATIN 20 MG TAB PO SCH (15:55)
[2023-11-17] MEDS: HYDROcodone/APAP 7.5-325MG 1 EACH TAB PO PRN (16:28)
[2023-11-17] MEDS: IMIPRAMINE 25 MG TAB PO SCH (19:54)
[2023-11-17] MEDS: MONTELUKAST 10 MG TAB PO SCH (19:55)
--- NOTE | 2023-11-18 07:07 | P.CONS ---
History of Present Illness - Reason for Consult Consult date: 11/17/23 Right upper extremity cellulitis Requesting physician: Lizbet Romero - Chief Complaint Right upper extremity swelling and redness x days - History of Present Illness Patient is a 73-year-old male with a past medical history significant for dementia reflux osteoarthritis coronary artery disease and asthma patient has been brought into the hospital from the local correction regarding right elbow infection apparently the patient has been antibiotic for several weeks however the patient noticed to having increasing swelling redness to the left upper extremity and apparently the patient did have limited range of motion to the elbow as documented by the ER physician patient was sent to the hospital for a CT which was completed soft tissue stranding or acute cellulitis no active definite focal drainable abscess patient has been admitted to the hospital inf ectious he was consulted for further management of antibiotic therapy most information has been obtained from review the chart and the patient himself not a very good historian when asked specifically about the pain he did complain he was not able to quantify it any further diabetic clear about any injury or drainage Review of Systems Positive points has been mentioned in HPI complete review could not be obtained because of his underlying mental status Past Medical History Past Medical History: Asthma, Coronary Artery Disease (CAD), Dementia, GERD/Reflux, Osteoarthritis (OA) Additional Past Medical History / Comment(s): Anemia History of Any Multi-Drug Resistant Organisms: None Reported Past Surgical History: Unable to Obtain, Coronary Bypass/CABG Additional Past Surgical History / Comment(s): Right shoulder, Pacemaker Past Anesthesia/Blood Transfusion Reactions: No Reported Reaction Date of Last Stent Placement:: 2009 Type of Cardiac Device: Permanent Pacemaker Device Placement Date:: 2020 Past Psychological History: Anxiety, Depression Past Alcohol Use History: None Reported, Rare - Past Family History Father Family Medical History: Coronary Artery Disease (CAD) Additional Family Medical History / Comment(s): heart problems Mother Family Medical History: Cancer Additional Family Medical History / Comment(s): Ovarian cancer. Medications and Allergies Home Medications Medication Instructions Recorded Confirmed Type Topiramate [Topamax] 100 mg PO BID 03/23/16 11/17/23 History Clopidogrel [Plavix] 75 mg PO DAILY@79909/18/23 11/17/23 History Donepezil [Aricept] 10 mg PO DAILY@79909/18/23 11/17/23 History Escitalopram [Lexapro] 10 mg PO DAILY@79909/18/23 11/17/23 History Fluticasone Propion/Salmeterol 1 puff INHALATION RT-BID@799,199909/18/23 11/17/23 History [Advair 250-50 Diskus] HYDROcodone/APAP 7.5-325MG [[place] 1 tab PO Q8H PRN 09/18/23 11/17/23 History 7.5-325] Memantine [Namenda] 10 mg PO BID 09/18/23 11/17/23 History Montelukast [Singulair] 10 mg PO HS@199909/18/23 11/17/23 History Rivaroxaban [Xarelto] 20 mg PO DAILY@159909/18/23 11/17/23 History Simvastatin [Zocor] 40 mg PO DAILY@159909/18/23 11/17/23 History atenoloL [Tenormin] 25 mg PO DAILY@79909/18/23 11/17/23 History modafiniL [Provigil] 200 mg PO DAILY@79909/18/23 11/17/23 History Acetaminophen Tab [Tylenol] 650 mg PO Q4H PRN 11/17/23 11/17/23 History Cephalexin [Keflex] 500 mg PO Q6HR 11/17/23 11/17/23 History Ergocalciferol (Vitamin D2) 1,250 mcg PO TU@79911/17/23 11/17/23 History [Drisdol (50,000 Iu)] Imipramine HCl [Tofranil] 50 mg PO HS@199911/17/23 11/17/23 History Ipratropium-Albuterol Nebulize 3 ml INHALATION RT-Q4H PRN 11/17/23 11/17/23 History [Duoneb 0.5 mg-3 mg/3 ml Soln] Naloxone HCl [Narcan] 4 mg NASAL ONCE PRN 11/17/23 11/17/23 History Pantoprazole Sodium [Protonix] 40 mg PO DAILY@79911/17/23 11/17/23 History Sennosides/Docusate Sodium 1 tab PO DAILY PRN 11/17/23 11/17/23 History [Senna-S 8.6-50 mg Tablet] Sennosides/Docusate Sodium 1 tab PO DAILY@0800 11/17/23 11/17/23 History [Senna-S 8.6-50 mg Tablet] diphenhydrAMINE [Benadryl] 25 mg PO Q6H PRN 11/17/23 11/17/23 History methocarbamoL [Robaxin-750] 750 mg PO Q12H PRN 11/17/23 11/17/23 History polyethylene glycoL 3350 [Miralax] 17 gm PO Q12H PRN 11/17/23 11/17/23 History Allergies Allergy/AdvReac Type Severity Reaction Status Date / Time bee pollen Allergy Anaphylaxis Verified 09/20/23 08:49 shrimp Allergy Anaphylaxis Verified 09/20/23 08:49 Physical Exam Vitals: Vital Signs Temp Pulse Pulse Resp BP BP Pulse Ox 11/17/23 08:38 98.9 F 66 22 132/75 96 11/17/23 01:39 98.0 F 72 16 144/63 97 11/16/23 23:15 98.3 F 74 16 126/73 96 11/16/23 20:01 97.8 F 66 18 123/71 98 Intake and Output 11/16/23 11/17/23 11/17/23 22:59 06:59 14:59 Intake Total 450 Output Total 800 Balance -350 Intake: Oral 450 Output: Urine 800 Other: Voiding Method Urinal Weight 117.934 kg GENERAL DESCRIPTION: Elderly male lying in bed, no distress. No tachypnea or accessory muscle of respiration use. HEENT: Shows Pallor , no scleral icterus. Oral mucous membrane is dry. No pharyngeal erythema or thrush NECK: Trachea central, no thyromegaly. LUNGS: Unlabored breathing. Clear to auscultation anteriorly. No wheeze or crac kle. HEART: S1, S2, regular rate and rhythm. No loud murmur ABDOMEN: Soft, no tenderness , guarding or rigidity, no organomegaly EXTREMITIES: Right upper extremity with erythema mostly on the anterior aspect no significant swelling to the elbow area or drainage was noticed SKIN: No rash, no masses palpable. NEUROLOGICAL: The patient is awake, mood and affect normal. Results CBC & Chem 7: 11/16/23 23:27 11/16/23 21:59 Labs: Abnormal Lab Results - Last 24 Hours (Table) 11/16/23 11/16/23 Range/Units 21:59 23:27 RBC 3.79 L (4.30-5.90) m/uL Hgb 12.0 L (13.0-17.5) gm/dL Hct 37.4 L (39.0-53.0) % Chloride 110 H (98-107) mmol/L C-Reactive Protein 3.1 H (<1.0) mg/dL Albumin 3.3 L (3.5-5.0) g/dL Assessment and Plan (1) Cellulitis of right arm Current Visit: Yes Status: Acute Code(s): L03.113 - CELLULITIS OF RIGHT UPPER LIMB SNOMED Code(s): 04506388937918367 Plan: 1patient presented hospital with worsening cellulitis of the right upper extremity apparently failing outpatient treatment patient clinically behaving as olecranon bursitis and no evidence of any abscess seen on the CAT scan. 2we will apply Mycolog cream to the area of erythema twice a day. 3empirically start the patient on cefazolin 2 g every 8 hours and see clinical response. We will follow on clinical condition and cultures to further adjust medication if needed Thank you for this consultation we will follow the patient along with you Dictation was produced using [employer] dictation software. please excuse any grammatical, word or spelling errors. Time with Patient: Greater than 30
[2023-11-18] MEDS: SENNOSIDES-DOCUSATE SODIUM 1 EACH TAB PO SCH (09:26)
[2023-11-18] MEDS: DONEPEZIL 10 MG TAB PO SCH (09:26)
--- NOTE | 2023-11-18 15:06 | P.HPIM ---
History of Present Illness H&P Date: 11/18/23 Chief Complaint: Right arm/elbow infection This is a pleasant 73-year-old male resident of [facility] with past medical history significant for recent mechanical fall with right humerus fracture around the prosthesis 09/18/2023, transferred out to [place] for orth opedic trauma,significant for dementia, COPD, sleep apnea-uses CPAP, CAD, CABG, hypertension, PPM presented to the ER with right arm/elbow cellulitis failed outpatient treatment. CTA reported soft tissue stranding or acute cellulitis, no definitive focal drainable abscess but suboptimal study. Afebrile, normal WBC, CRP 3.1. Evaluated by infectious disease with empiric antibiotics of cefazolin initiated along with local wound care of Mycolog cream. Patient reports nontender, itchy, no pain with bending,+MS. Review of Systems ROS Statement: Those systems with pertinent positive or pertinent negative responses have been documented in the HPI. ROS Other: All systems not noted in ROS Statement are negative. Past Medical History Past Medical History: Asthma, Coronary Artery Disease (CAD), Dementia, GERD/Reflux, Osteoarthritis (OA) Additional Past Medical History / Comment(s): Anemia History of Any Multi-Drug Resistant Organisms: None Reported Past Surgical History: Unable to Obtain, Coronary Bypass/CABG Additional Past Surgical History / Comment(s): Right shoulder, Pacemaker Past Anesthesia/Blood Transfusion Reactions: No Reported Reaction Date of Last Stent Placement:: 2009 Type of Cardiac Device: Permanent Pacemaker Device Placement Date:: 2020 Past Psychological History: Anxiety, Depression Past Alcohol Use History: None Reported, Rare - Past Family History Father Family Medical History: Coronary Artery Disease (CAD) Additional Family Medical History / Comment(s): heart problems Mother Family Medical History: Cancer Additional Family Medical History / Comment(s): Ovarian cancer. Medications and Allergies Home Medications Medication Instructions Recorded Confirmed Type Topiramate [Topamax] 100 mg PO BID 03/23/16 11/17/23 History Clopidogrel [Plavix] 75 mg PO DAILY@79909/18/23 11/17/23 History Donepezil [Aricept] 10 mg PO DAILY@79909/18/23 11/17/23 History Escitalopram [Lexapro] 10 mg PO DAILY@79909/18/23 11/17/23 History Fluticasone Propion/Salmeterol 1 puff INHALATION RT-BID@799,199909/18/23 11/17/23 History [Advair 250-50 Diskus] HYDROcodone/APAP 7.5-325MG [[place] 1 tab PO Q8H PRN 09/18/23 11/17/23 History 7.5-325] Memantine [Namenda] 10 mg PO BID 09/18/23 11/17/23 History Montelukast [Singulair] 10 mg PO HS@199909/18/23 11/17/23 History Rivaroxaban [Xarelto] 20 mg PO DAILY@159909/18/23 11/17/23 History Simvastatin [Zocor] 40 mg PO DAILY@159909/18/23 11/17/23 History atenoloL [Tenormin] 25 mg PO DAILY@79909/18/23 11/17/23 History modafiniL [Provigil] 200 mg PO DAILY@79909/18/23 11/17/23 History Acetaminophen Tab [Tylenol] 650 mg PO Q4H PRN 11/17/23 11/17/23 History Cephalexin [Keflex] 500 mg PO Q6HR 11/17/23 11/17/23 History Ergocalciferol (Vitamin D2) 1,250 mcg PO TU@79911/17/23 11/17/23 History [Drisdol (50,000 Iu)] Imipramine HCl [Tofranil] 50 mg PO HS@199911/17/23 11/17/23 History Ipratropium-Albuterol Nebulize 3 ml INHALATION RT-Q4H PRN 11/17/23 11/17/23 History [Duoneb 0.5 mg-3 mg/3 ml Soln] Naloxone HCl [Narcan] 4 mg NASAL ONCE PRN 11/17/23 11/17/23 History Pantoprazole Sodium [Protonix] 40 mg PO DAILY@79911/17/23 11/17/23 History Sennosides/Docusate Sodium 1 tab PO DAILY PRN 11/17/23 11/17/23 History [Senna-S 8.6-50 mg Tablet] Sennosides/Docusate Sodium 1 tab PO DAILY@0800 09/18/24 09/18/24 History [Senna-S 8.6-50 mg Tablet] diphenhydrAMINE [Benadryl] 25 mg PO Q6H PRN 11/17/23 11/17/23 History methocarbamoL [Robaxin-750] 750 mg PO Q12H PRN 11/17/23 11/17/23 History polyethylene glycoL 3350 [Miralax] 17 gm PO Q12H PRN 11/17/23 11/17/23 History Allergies Allergy/AdvReac Type Severity Reaction Status Date / Time bee pollen Allergy Anaphylaxis Verified 09/20/23 08:49 shrimp Allergy Anaphylaxis Verified 09/20/23 08:49 Physical Exam Vitals: Vital Signs Temp Pulse Pulse Resp BP BP BP 11/18/23 07:00 96.3 F L 70 15 163/80 11/18/23 02:00 97.8 F 106 H 18 106/62 11/17/23 19:38 97.9 F 60 14 143/79 11/17/23 18:34 97.7 F 64 21 122/69 11/17/23 17:58 98 F 84 20 138/78 11/17/23 15:56 98.6 F 68 20 136/83 Pulse Ox 11/18/23 07:00 97 11/18/23 02:00 96 11/17/23 19:38 97 11/17/23 18:34 96 11/17/23 17:58 95 11/17/23 15:56 97 Intake and Output 11/17/23 11/18/23 11/18/23 22:59 06:59 14:59 Intake Total 150 0 Output Total 225 Balance 150 -225 Intake: Oral 150 0 Output: Urine 225 Other: Voiding Method Urinal Urinal # Voids 2 Weight 117.934 kg GENERAL: alert and oriented x2, no acute distress. Well developed, well nourished. HEENT: Normocephalic, atraumatic ,pupils are round and equally reacting to light. EOMI. No scleral icterus. No conjunctival pallor. Neck supple, no JVD. CARDIOVASCULAR: S1 and S2 present. No murmurs, rubs, or gallops. PULMONARY: Chest is clear to auscultation, no wheezing or crackles. ABDOMEN: Soft, nontender, nondistended, normoactive bowel sounds. No palpable organomegaly. MUSCULOSKELETAL: No joint swelling or deformity. EXTREMITIES: No cyanosis, clubbing, or pedal edema. NEUROLOGICAL: Gross neurological examination did not reveal any focal deficits. SKIN: No rashes. Right Arm outlined, anterior aspect pruritic,erythema, minimal edema, no drainage Results CBC & Chem 7: 11/16/23 23:27 11/16/23 21:59 Labs: Microbiology - Last 24 Hours (Table) 11/16/23 21:59 Blood Culture - Preliminary Blood Thrombosis Risk Factor Assmnt - Choose All That Apply Each Risk Factor Represents 3 Points: Age 75 years or older Thrombosis Risk Factor Assessment Total Risk Factor Score: 3 Thrombosis Risk Factor Assessment Level: Moderate Risk Assessment and Plan Assessment: Right elbow infection failed outpatient antibiotic treatment, cellulitis, possible folliculitis secondary to itching. Rule out septic right elbow bursitis. History of mechanical fall with recent right humerus fracture around the prosthesis 09/18/2023, transferred to [place] for orthopedic trauma. Hx of coronary artery disease with prior coronary artery bypass grafting and PCI History of permanent pacemaker Hypertension History of COPD History of sleep apnea with CPAP use History of Dementia Plan: Continue on current medication regimen ,monitoring and symptomatic treatment. Orthopedic surgery consulted, ruling out septic right elbow bursitis. Maintain IV antibiotics/local wound care as per infectious disease. The impression and plan of care has been dictated as directed. : I performed a history and examination of this patient, discussed the same with the dictator. I agree with the dictator's note ,documented as a scribe. Any additional findings or plans will be noted.
[2023-11-18 15:12] VITALS: RESP 16
--- NOTE | 2023-11-18 17:46 | P.HPOR ---
History of Present Illness H&P Date: 11/18/23 Chief Complaint: Right upper extremity cellulitis This is a pleasant 73-year-old male who has been a resident of [facility] since his humerus fracture with past medical history significant for recent mechanical fall with right humerus fracture around the prosthesis 09/18/2023, transferred to [place] for orthopedic trauma, S/P CABG, PPM, HTN, COPD, sleep apnea-uses CPAP, and dementia, presented to the ER with right upper extremity cellulitis that failed outpatient treatment. CTA reported soft tissue stranding or acute cellulitis, no definitive focal drainable abscess but suboptimal study. Evaluated by infectious disease and empiric antibiotics of cefazolin initiated along with local wound care of Mycolog cream. Patient is a poor historian due to dementia. History provided by his Maddison at bedside. Patient reports right upper extremity is nontender, but itchy. He denies pain with shoulder or elbow range of motion. Review of Systems Positive points have been mentioned in HPI, and complete review could not be ob tained due to his underlying mental status. Past Medical History Past Medical History: Asthma, Coronary Artery Disease (CAD), Dementia, GERD/Reflux, Osteoarthritis (OA) Additional Past Medical History / Comment(s): Anemia History of Any Multi-Drug Resistant Organisms: None Reported Past Surgical History: Unable to Obtain, Coronary Bypass/CABG Additional Past Surgical History / Comment(s): Right shoulder, Pacemaker Past Anesthesia/Blood Transfusion Reactions: No Reported Reaction Date of Last Stent Placement:: 2009 Type of Cardiac Device: Permanent Pacemaker Device Placement Date:: 2020 Past Psychological History: Anxiety, Depression Past Alcohol Use History: None Reported, Rare - Past Family History Father Family Medical History: Coronary Artery Disease (CAD) Additional Family Medical History / Comment(s): heart problems Mother Family Medical History: Cancer Additional Family Medical History / Comment(s): Ovarian cancer. Medications and Allergies Home Medications Medication Instructions Recorded Confirmed Type Topiramate [Topamax] 100 mg PO BID 03/23/16 11/17/23 History Clopidogrel [Plavix] 75 mg PO DAILY@79909/18/23 11/17/23 History Donepezil [Aricept] 10 mg PO DAILY@79909/18/23 11/17/23 History Escitalopram [Lexapro] 10 mg PO DAILY@79909/18/23 11/17/23 History Fluticasone Propion/Salmeterol 1 puff INHALATION RT-BID@799,199909/18/23 11/17/23 History [Advair 250-50 Diskus] HYDROcodone/APAP 7.5-325MG [[place] 1 tab PO Q8H PRN 09/18/23 11/17/23 History 7.5-325] Memantine [Namenda] 10 mg PO BID 09/18/23 11/17/23 History Montelukast [Singulair] 10 mg PO HS@199909/18/23 11/17/23 History Rivaroxaban [Xarelto] 20 mg PO DAILY@159909/18/23 11/17/23 History Simvastatin [Zocor] 40 mg PO DAILY@159909/18/23 11/17/23 History atenoloL [Tenormin] 25 mg PO DAILY@79909/18/23 11/17/23 History modafiniL [Provigil] 200 mg PO DAILY@79909/18/23 11/17/23 History Acetaminophen Tab [Tylenol] 650 mg PO Q4H PRN 11/17/23 11/17/23 History Cephalexin [Keflex] 500 mg PO Q6HR 11/17/23 11/17/23 History Ergocalciferol (Vitamin D2) 1,250 mcg PO TU@79911/17/23 11/17/23 History [Drisdol (50,000 Iu)] Imipramine HCl [Tofranil] 50 mg PO HS@199911/17/23 11/17/23 History Ipratropium-Albuterol Nebulize 3 ml INHALATION RT-Q4H PRN 11/17/23 11/17/23 History [Duoneb 0.5 mg-3 mg/3 ml Soln] Naloxone HCl [Narcan] 4 mg NASAL ONCE PRN 11/17/23 11/17/23 History Pantoprazole Sodium [Protonix] 40 mg PO DAILY@79911/17/23 11/17/23 History Sennosides/Docusate Sodium 1 tab PO DAILY PRN 11/17/23 11/17/23 History [Senna-S 8.6-50 mg Tablet] Sennosides/Docusate Sodium 1 tab PO DAILY@0800 11/17/23 11/17/23 History [Senna-S 8.6-50 mg Tablet] diphenhydrAMINE [Benadryl] 25 mg PO Q6H PRN 11/17/23 11/17/23 History methocarbamoL [Robaxin-750] 750 mg PO Q12H PRN 11/17/23 11/17/23 History polyethylene glycoL 3350 [Miralax] 17 gm PO Q12H PRN 11/17/23 11/17/23 History Allergies Allergy/AdvReac Type Severity Reaction Status Date / Time bee pollen Allergy Anaphylaxis Verified 09/20/23 08:49 shrimp Allergy Anaphylaxis Verified 09/20/23 08:49 Physical Examination A focused exam of the right upper extremity was conducted at bedside. Upon inspection of the right upper extremity, there is pale erythema over the anterior aspects of the arm and forearm, and signs of excoriations. Upon palpation there is no palpable induration or fluctuance. The patient denies tenderness to palpation of the right shoulder, humerus, olecranon bursa, forearm, wrist, or hand. The bony landmarks of the right elbow are easily palpable. Upon range of motion testing of the right upper extremity the patient denies pain with flexion or abduction of the shoulder, flexion or extension of the elbow, pronation or supination of the hand, flexion and extension of the wrist. Results - Labs Labs: Microbiology - Last 24 Hours (Table) 11/16/23 21:59 Blood Culture - Preliminary Blood H & H 11/16/23 Range/Units 23:27 Hgb 12.0 L (13.0-17.5) gm/dL Hct 37.4 L (39.0-53.0) % Result Diagrams: 11/16/23 23:27 11/16/23 21:59 Assessment and Plan Assessment: Right upper extremity cellulitis which failed outpatient antibiotic treatment, CTA reported soft tissue stranding or acute cellulitis, no definitive focal drainable abscess but suboptimal study. History of mechanical fall with recent right humerus fracture around the prosthesis 09/18/2023, transferred to [place] for orthopedic trauma. Hx of coronary artery disease with prior coronary artery bypass grafting and PCI History of permanent pacemaker Hypertension History of COPD History of sleep apnea with CPAP use History of Dementia Plan: Plan: Continue on current medication regimen, monitoring and symptomatic treatment. Maintain IV antibiotics/local wound care as per infectious disease. Recommended stocking over patient's right upper extremity to keep patient from causing further excoriations. After review of patient's history, exam findings, available imaging, no surgical procedures are recommended from an orthopedic standpoint at this time for his right upper extremity cellulitis. Thank you for the consult.
--- NOTE | 2023-11-18 22:33 | P.PN ---
Subjective Progress Note Date: 11/18/23 Principal diagnosis: Reason for follow-up is right upper extremity cellulitis Patient is a 73-year-old male with a past medical history significant for dementia reflux osteoarthritis coronary artery disease and asthma patient has been brought into the hospital from the local [facility] regarding right elbow infection in this patient who did have erythema to the right upper extremity concerning for cellulitis. On today's evaluation that is 11/18/2023,the patient is more awake and alert remains to be afebrile, patient is on room air not requiring supplemental oxygen and denies any shortness of breath no chest pain or cough.Patient denies having any nausea or vomiting, no abdominal pain and no diarrhea has been reported, denies pain to the right upper extremity. The patient white count 6.9 creatinine 0.93 blood cultures are pending Objective - Vital Signs Vital signs: Vital Signs Temp 97.9 F 11/18/23 15:00 Pulse 68 11/18/23 15:00 Resp 16 11/18/23 15:00 BP 115/52 11/18/23 15:00 Pulse Ox 98 11/18/23 15:00 FiO2 Intake & Output 11/17/23 11/18/23 11/18/23 18:59 06:59 18:59 Intake Total 0 150 118 Output Total 450 Balance 0 150 -332 Weight 117.934 kg Intake: Oral 0 150 118 Output: Urine 450 Other: Voiding Method Urinal Urinal # Voids 2 - Exam GENERAL DESCRIPTION: An elderly male lying in bed in no distress RESPIRATORY SYSTEM: Unlabored breathing , decreased breath sounds at bases HEART: S1 S2 regular rate and rhythm , ABDOMEN: Soft , no tenderness EXTREMITIES: Right upper extremity swelling redness slightly decreased - Labs CBC & Chem 7: 11/16/23 23:27 11/16/23 21:59 Labs: Microbiology - Last 24 Hours (Table) 11/16/23 21:59 Blood Culture - Preliminary Blood Assessment and Plan (1) Cellulitis of right arm Current Visit: Yes Status: Acute Code(s): L03.113 - CELLULITIS OF RIGHT UPPER LIMB SNOMED Code(s): 49524706243597986 Plan: 1patient presented hospital with worsening cellulitis of the right upper extremity apparently failing outpatient treatment patient clinically not behaving as olecranon bursitis and no evidence of any abscess seen on the CAT scan. 2patient did have slight decrease in the erythema we will continue Mycolog cream and cefazolin and monitor clinical course closely Dictation was produced using [employer] dictation software. please excuse any grammatical, word or spelling errors. Time with Patient: Less than 30
[2023-11-19 07:39] VITALS: TEMP 97.5
[2023-11-19] MEDS: ACETAMINOPHEN TAB 325 MG TAB PO PRN (08:53)
[2023-11-19 09:02] LABS: Basophils # (A) 0.05 X 10*3/uL (0.00-0.10); Basophils % (A) 0.6 %; Eosinophils # (A) 0.43 X 10*3/uL (0.04-0.35); Eosinophils % (A) 4.8 %; HCT 40.3 % (39.6-50.0); HGB 12.7 g/dL (13.0-17.0); Lymphocytes # (A) 1.63 X 10*3/uL (0.90-5.00); Lymphocytes % (A) 18.3 %; MCH 30.5 pg (27.0-32.0); MCHC 31.5 g/dL (32.0-37.0); MCV 96.9 FL (80.0-97.0); Mean Platelet Volume 9.7 FL (9.5-12.2); Monocytes # (A) 0.79 X 10*3/uL (0.20-1.00); Monocytes % (A) 8.9 %; NRBC Per 100 WBC 0 X 10*3/uL (0.00-0.01); Neutrophils # (A) 5.97 X 10*3/uL (1.80-7.70); Platelet Count 237 X 10*3/uL (140-440); RBC 4.16 X 10*6/uL (4.40-5.60); RDW 13.3 % (11.5-14.5); WBC 8.91 X 10*3/uL (4.50-10.00)
[2023-11-19 09:21] LABS: Blood Urea Nitrogen 18.7 mg/dL (9.0-27.0); Calcium 8.7 mg/dL (8.7-10.3); Carbon Dioxide 20.6 mmol/L (21.6-31.8); Chloride 110 mmol/L (96-109); Glucose 90 mg/dL (70-110); Potassium 3.9 mmol/L (3.5-5.5); Sodium 141 mmol/L (135-145)
[2023-11-19 13:29] VITALS: BP 127/68; PULSE 51
--- NOTE | 2023-11-19 14:11 | P.DS ---
Providers Date of admission: 11/16/23 22:54 Expected date of discharge: 11/19/23 Attending physician: Carlos Palacio MD Consults: 11/16/23 23:15 Consult Physician Urgent Consulting Provider: Melanie Ivey Consult Reason/Comments: Right arm cellulitis Do you want consulting provider notified?: Yes 11/18/23 08:56 Consult Physician Routine Consulting Provider: Louie Garcia Consult Reason/Comments: right elbow bursitis, septic? Do you want consulting provider notified?: Yes Primary care physician: Carlos Palacio MD Hospital Course: Final diagnosis Right elbow infection failed outpatient antibiotic treatment, cellulitis, possible folliculitis secondary to itching. Ruled out septic right elbow bursitis per orthopedics. History of mechanical fall with recent right humerus fracture around the prosthesis 09/18/2023, transferred to [place] for orthopedic trauma. Hx of coronary artery disease with prior coronary artery bypass grafting and PCI History of permanent pacemaker Hypertension History of COPD History of sleep apnea with CPAP use History of Dementia Obesity with a BMI 33.4 GI prophylaxis DVT prophylaxis Full code Discharge disposition Patient is being discharged in a stable condition with guarded prognosis to [facility]. Patient will follow-up with Dr. Carlos Palacio in the outpatient setting upon discharge. Patient is to continue with oral Keflex 4 times daily for the next 1 week and also Mycolog cream twice daily. Recommend outpatient follow-up with orthopedics as scheduled. Patient also to continue with right arm sleeve to prevent itching and picking at the area. Total time taken is greater than 35 minutes. Hospital course This is a 73-year-old male who was recently admitted with concerns of right elbow infection with failure of outpatient treatment with right arm cellulitis and concerns for septic bursitis. Patient being followed by orthopedics along with infectious disease and septic bursitis ruled out. Patient was evaluated by orthopedics with no plans of surgical intervention recommending to continue with antibiotics and outpatient follow-up. Patient did have blood cultures that were negative and showing clinical improvement with Mycolog cream along with oral Keflex. Per ID recommendations patient is to continue with Keflex 4 times daily for the next 1 week along with Mycolog cream twice daily for 1 week. Strongly recommend keeping the sleeve and the right upper extremity to prevent and minimize patient from picking and itching the site. Patient has been cleared by consultations. Please refer to other consultation notes for further HPI. Currently no reports of chest pain, shortness of breath, or palpitations. Patient is afebrile. No reports of nausea or vomiting and patient is tolerating diet. Patient will be going to [place] today. Guarded prognosis and high risk for readmissions given patient's significant history Physical exam: Gen: This is a 73-year-old male who is awake, alert and oriented x 1-2 baseline, well-developed, elderly appearing, obese HEENT: Head is atraumatic, normocephalic. Pupils equal, round. Sclerae is anicteric. NECK: Supple. No JVD. No lymphadenopathy. No thyromegaly. LUNGS: Diminished breath sounds bilaterally otherwise clear to auscultation. No wheezes or rhonchi. No intercostal retractions. HEART: S1, S2 are muffled ABDOMEN: Soft. Obese. Bowel sounds are present. No masses. No tenderness. EXTREMITIES: No pedal edema. No calf tenderness. NEUROLOGICAL: Patient is awake, alert and oriented x1-2. Cranial nerves 2 through 12 are grossly intact. Diffusely weak Please refer to medication reconciliation sheet for a list of medications. The impression and plan of care has been dictated by Lisbet Allred, Nurse Practitioner as directed. Dr. Marlon MD I have performed a history and examination and MDM of this patient, discussed the same with the dictator, and agree with the dictator's assessment and plan as written ,documented as a scribe. Based on total visit time, I have performed more than 50% of the visit. Patient Condition at Discharge: Stable Plan - Discharge Summary New Discharge Prescriptions: New Nystatin 100,000Unit/gm Cream [Mycostatin Cream] 1 applic TOPICAL BID 7 Days #1 each Triamcinolone 0.1% Cream [Kenalog 0.1% Cream] 1 applic TOPICAL BID #1 each Continue Topiramate [Topamax] 100 mg PO BID modafiniL [Provigil] 200 mg PO DAILY@0800 Montelukast [Singulair] 10 mg PO HS@2000 atenoloL [Tenormin] 25 mg PO DAILY@0800 Clopidogrel [Plavix] 75 mg PO DAILY@0800 Ipratropium-Albuterol Nebulize [Duoneb 0.5 mg-3 mg/3 ml Soln] 3 ml INHALATION RT-Q4H PRN PRN Reason: Shortness Of Breath Acetaminophen Tab [Tylenol] 650 mg PO Q4H PRN PRN Reason: Pain Pantoprazole Sodium [Protonix] 40 mg PO DAILY@0800 Cephalexin [Keflex] 500 mg PO Q6HR 7 Days #28 cap Memantine [Namenda] 10 mg PO BID Fluticasone Propion/Salmeterol [Advair 250-50 Diskus] 1 puff INHALATION RT- BID@0800,1999 Simvastatin [Zocor] 40 mg PO DAILY@1600 Rivaroxaban [Xarelto] 20 mg PO DAILY@1600 Escitalopram [Lexapro] 10 mg PO DAILY@0800 Donepezil [Aricept] 10 mg PO DAILY@0800 polyethylene glycoL 3350 [Miralax] 17 gm PO Q12H PRN PRN Reason: Constipation Sennosides/Docusate Sodium [Senna-S 8.6-50 mg Tablet] 1 tab PO DAILY PRN PRN Reason: Constipation methocarbamoL [Robaxin-750] 750 mg PO Q12H PRN PRN Reason: Spasms Naloxone HCl [Narcan] 4 mg NASAL ONCE PRN PRN Reason: OVERDOSE diphenhydrAMINE [Benadryl] 25 mg PO Q6H PRN PRN Reason: Itching Sennosides/Docusate Sodium [Senna-S 8.6-50 mg Tablet] 1 tab PO DAILY@0800 Imipramine HCl [Tofranil] 50 mg PO HS@1999 Ergocalciferol (Vitamin D2) [Drisdol (50,000 Iu)] 1,250 mcg PO TU@0800 HYDROcodone/APAP 7.5-325MG [[place] 7.5-325] 1 tab PO Q8H PRN #4 tab PRN Reason: Pain Discharge Medication List Topiramate [Topamax] 100 mg PO BID 03/23/16 [History] Clopidogrel [Plavix] 75 mg PO DAILY@0809/18/23 [History] Donepezil [Aricept] 10 mg PO DAILY@0809/18/23 [History] Escitalopram [Lexapro] 10 mg PO DAILY@0809/18/23 [History] Fluticasone Propion/Salmeterol [Advair 250-50 Diskus] 1 puff INHALATION RT- BID@0800,199909/18/23 [History] Memantine [Namenda] 10 mg PO BID 09/18/23 [History] Montelukast [Singulair] 10 mg PO HS@199909/18/23 [History] Rivaroxaban [Xarelto] 20 mg PO DAILY@159909/18/23 [History] Simvastatin [Zocor] 40 mg PO DAILY@159909/18/23 [History] atenoloL [Tenormin] 25 mg PO DAILY@79909/18/23 [History] modafiniL [Provigil] 200 mg PO DAILY@79909/18/23 [History] Acetaminophen Tab [Tylenol] 650 mg PO Q4H PRN 11/17/23 [History] Ergocalciferol (Vitamin D2) [Drisdol (50,000 Iu)] 1,250 mcg PO TU@79911/17/23 [History] Imipramine HCl [Tofranil] 50 mg PO HS@199911/17/23 [History] Ipratropium-Albuterol Nebulize [Duoneb 0.5 mg-3 mg/3 ml Soln] 3 ml INHALATION RT-Q4H PRN 11/17/23 [History] Naloxone HCl [Narcan] 4 mg NASAL ONCE PRN 11/17/23 [History] Pantoprazole Sodium [Protonix] 40 mg PO DAILY@79911/17/23 [History] Sennosides/Docusate Sodium [Senna-S 8.6-50 mg Tablet] 1 tab PO DAILY PRN 11/17/23 [History] Sennosides/Docusate Sodium [Senna-S 8.6-50 mg Tablet] 1 tab PO DAILY@79911/17/23 [History] diphenhydrAMINE [Benadryl] 25 mg PO Q6H PRN 11/17/23 [History] methocarbamoL [Robaxin-750] 750 mg PO Q12H PRN 11/17/23 [History] polyethylene glycoL 3350 [Miralax] 17 gm PO Q12H PRN 11/17/23 [History] Cephalexin [Keflex] 500 mg PO Q6HR 7 Days #28 cap 11/19/23 [Rx] HYDROcodone/APAP 7.5-325MG [[place] 7.5-325] 1 tab PO Q8H PRN #4 tab 11/19/23 [Rx] Nystatin 100,000Unit/gm Cream [Mycostatin Cream] 1 applic TOPICAL BID 7 Days #1 each 11/19/23 [Rx] Triamcinolone 0.1% Cream [Kenalog 0.1% Cream] 1 applic TOPICAL BID #1 each 11/19/23 [Rx] Follow up Appointment(s)/Referral(s): Gaurang Martinez DO [STAFF PHYSICIAN] - 1-2 days
--- NOTE | 2023-11-19 15:14 | P.PN ---
Subjective Progress Note Date: 11/19/23 Principal diagnosis: Reason for follow-up is right upper extremity cellulitis Patient is a 73-year-old male with a past medical history significant for dementia reflux osteoarthritis coronary artery disease and asthma patient has been brought into the hospital from the local correction regarding right elbow infection in this patient who did have erythema to the right upper extremity concerning for cellulitis. On today's evaluation that is 11/19/2023, the patient continues to be afebrile, the patient is on room air and breathing comfortably, the Pt denies having any chest pain or cough, the patient denies having any abdominal pain no vomiting or any diarrhea and denies pain to the right upper extremity overall redness has decreased. Patient white count is 8.91, creat is 1.1 blood culture has been negative Objective - Vital Signs Vital signs: Vital Signs Temp 97.5 F L 11/19/23 07:00 Pulse 66 11/19/23 07:00 Resp 16 11/19/23 07:00 BP 152/81 11/19/23 07:00 Pulse Ox 98 11/19/23 07:00 FiO2 Intake & Output 11/18/23 11/19/23 11/19/23 18:59 06:59 18:59 Intake Total 354 480 118 Output Total 625 725 Balance -271 480 -607 Intake: Oral 354 480 118 Output: Urine 625 725 Other: Voiding Method Urinal Urinal Urinal # Voids 3 - Exam GENERAL DESCRIPTION: An elderly male lying in bed in no distress RESPIRATORY SYSTEM: Unlabored breathing , decreased breath sounds at bases HEART: S1 S2 regular rate and rhythm , ABDOMEN: Soft , no tenderness EXTREMITIES: Right upper extremity swelling redness has decreased in intensity the patient incision is currently intact with no drainage - Labs CBC & Chem 7: 11/19/23 04:08 11/19/23 04:08 Labs: Abnormal Lab Results - Last 24 Hours (Table) 11/19/23 11/19/23 Range/Units 04:08 04:08 RBC 4.16 L (4.40-5.60) X 10*6/uL Hgb 12.7 L (13.0-17.0) g/dL MCHC 31.5 L (32.0-37.0) g/dL Eosinophils # 0.43 H (0.04-0.35) X 10*3/uL Chloride 110 H (96-109) mmol/L Carbon Dioxide 20.6 L (21.6-31.8) mmol/L Microbiology - Last 24 Hours (Table) 11/16/23 21:59 Blood Culture - Preliminary Blood Assessment and Plan (1) Cellulitis of right arm Current Visit: Yes Status: Acute Code(s): L03.113 - CELLULITIS OF RIGHT UPPER LIMB SNOMED Code(s): 19243704847127691 Plan: 1patient presented hospital with worsening cellulitis of the right upper extr emity apparently failing outpatient treatment patient clinically not behaving as olecranon bursitis and no evidence of any abscess seen on the CAT scan. 2patient did have recent history of trauma and repair of the humeral fracture the incision is currently healed redness has decreased features was mostly a fungal dermatitis and may have responded to the Mycolog consider short course of oral Keflex as well on discharge if any recurrence of swelling redness incision opened up the patient will need to follow-up with his orthopedic surgeon Dictation was produced using [employer] dictation software. please excuse any grammatical, word or spelling errors. Time with Patient: Less than 30
[2023-11-23] MEDS ORDERED: ERGOCALCIFEROL 1,250 MCG (50,000 IU) CAPSULE PO SCH (08:00)
== END 2023-11-19 17:52 | disposition short-term general hospital (02) | DRG 603 ==
LOC: EC 19:59 → 6NMEDSUR 22:54 → OBSVTOIN 11-19 10:00
PROVIDERS: ADMIT Family Medicine; ATTEND Family Medicine
DX: L03.113 Cellulitis of right upper limb (principal); F02.83 Dementia in other diseases classified elsewhere, unspecified severity, with mood disturbance; I25.10 Atherosclerotic heart disease of native coronary artery without angina pectoris; J44.9 Chronic obstructive pulmonary disease, unspecified; Z95.0 Presence of cardiac pacemaker; Z95.1 Presence of aortocoronary bypass graft; I10 Essential (primary) hypertension; D64.9 Anemia, unspecified; G30.9 Alzheimer's disease, unspecified; G47.30 Sleep apnea, unspecified; Z68.33 Body mass index [BMI] 33.0-33.9, adult; E66.9 Obesity, unspecified; E78.5 Hyperlipidemia, unspecified; F32.A Depression, unspecified; Z79.01 Long term (current) use of anticoagulants; Z79.02 Long term (current) use of antithrombotics/antiplatelets; Z79.899 Other long term (current) drug therapy; Z82.49 Family history of ischemic heart disease and other diseases of the circulatory system; Z91.030 Bee allergy status; Z91.013 Allergy to seafood
CPT/HCPCS: 36415; 80048; 80053; 83605; 85025; 86140; 87040; 94640; 96365; 96367; 96375; 96376; 99285